=== PATIENT | male | born 1945 | race Caucasian/White ===

== ENCOUNTER 2019-08-16 20:00 | Outpatient (CLI) | payer OTHER, SELFPAY | END 2019-08-16 20:01 | disposition home or self-care (01) | LOC: SLEEP 08-17 08:23 | PROVIDERS: Family Provider Family Medicine; PCP Family Medicine; Visit Provider Family Medicine | DX: G47.30 Sleep apnea, unspecified (principal) | CPT/HCPCS: 95811 ==

== ENCOUNTER 2019-09-07 20:00 | Outpatient (CLI) | payer OTHER, SELFPAY | END 2019-09-07 20:01 | disposition home or self-care (01) | LOC: SLEEP 09-08 09:55 | PROVIDERS: Family Provider Family Medicine; PCP Family Medicine; Visit Provider Family Medicine | DX: G47.30 Sleep apnea, unspecified (principal) | CPT/HCPCS: 95811 ==

== ENCOUNTER 2020-07-06 22:06 | Inpatient (IN) | payer OTHER, MEDICARE, SELFPAY ==
[2020-07-06 22:10] VITALS: BP 146/71; PULSE 105; RESP 24; TEMP 36.7; O2SAT 84; BMI 39.5
--- NOTE | 2020-07-06 22:11 | XRR_ITS ---
PROCEDURE INFORMATION: Exam: XR Chest Exam date and time: 07/06/2020 10:14 PM Age: 75 years old Clinical indication: Shortness of breath; Additional info: SOB TECHNIQUE: Imaging protocol: XR of the chest. Views: 1 view. Total images: 1 COMPARISON: CR Chest 2 views* [id number] 04/08/2018 12:16 PM FINDINGS: Lungs: No visible active interstitial or alveolar airspace disease. Pleural spaces: Unremarkable. No pleural effusion. No pneumothorax. Heart/Mediastinum: Cardiac structures and configuration with arteriosclerosis. Bones/joints: Unremarkable for age. Other findings: Obesity. XR/XR chest 1V portable [id number] IMPRESSION: Nonacute.
--- NOTE | 2020-07-06 22:11 | ECG_ITS ---
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 Measurements Intervals [place] Rate: 91 P: 42 WV: 189 QRS: -64 QRSD: 95 T: 95 QT: 362 QTc: 447 Interpretive Statements SINUS RHYTHM LEFT AXIS DEVIATION [QRS AXIS < -30] LOW QRS VOLTAGE IN EXTREMITY LEADS [QRS DEFLECTION < 0.5 mV IN LIMB LEADS] ANTEROSEPTAL MYOCARDIAL INFARCTION , OF INDETERMINATE AGE [40+ ms Q WAVE IN V1-V4] Compared to ECG 04/08/2018 12:02:14 Low QRS voltage now present Myocardial infarct finding still present Electronically Signed On 07-07-2020 14:47:48 CDT by Loan Hooks M.D. [email or web address]/store/NU/[id number] f
--- NOTE | 2020-07-06 22:57 | ED_ITS ---
HPI - Fall General: Chief Complaint: Fall Stated Complaint: WEAKNESS Time Seen by Provider: 07/06/20 22:07 Source: patient and EMS Mode of arrival: EMS Limitations: no limitations History of Present Illness: HPI Narrative: 75-year-old male presents with EMS after a fall. He fell at home and could not get up. States has been having increasing swelling in his face and legs dyspnea. He is unknown if he has CHF but does state that he has had swelling in his legs over the last week. He does have quite a bit of edema here. Patient is currently 82% on room air and states he does not wear oxygen at home. He is unable to ambulate at this time as own and does live home alone. He denies any chest pain. Denies any fever. Associated symptoms-after fall: Denies abdominal pain, chest pain, headache(s) or neck pain Review of Systems Const: Denies: fever(s), chills, body aches or change in appetite Eyes: Denies: blurry vision or eye discomfort ENMT: Denies: throat pain or dental pain Card: Denies: chest pain Resp: Reports: dyspnea GI: Denies: abdominal pain, nausea, vomiting or diarrhea : Denies: dysuria Musc: Reports: extremity swelling; Denies: neck pain or back pain Skin/Breast: Denies: rash Neuro: Reports: weakness in extremities; Denies: headache(s) Psych: Denies: depression Sha/Lymph: Denies: easy bruising All/Imm: Denies: urticaria PFSH ED PFSH: Medical History (Updated 07/07/20 @ 01:05 by Kb Lopez MD) Asthma Surgical History (Updated 05/13/19 @ 23:54 by Wayne Samano DPM) History of bowel diversion surgery History of cholecystectomy Family History (Updated 05/09/19 @ 15:51 by Iris Knight LPN) Other Cancer Denies family history of Diabetes Social History (Updated 05/09/19 @ 15:51 by Iris Knight LPN) Smoking and tobacco status: former smoker Alcohol intake: current Household members: none Current occupational status: retired Physical Exam Const: COMMON NORMALS: no acute distress and patient oriented x3 GENERAL APPEARANCE: disheveled NUTRITIONAL APPEARANCE: obese HENMT: COMMON NORMALS: normocephalic and atraumatic HEAD & SCALP: normocephalic and atraumatic Eye: COMMON NORMALS: Equal, round and reactive pupils present and EOMs intact bilaterally PUPIL: Yes Equal, round and reactive pupils present Neck/C-Spine: COMMON NORMALS: full ROM and supple Chest: COMMONS NORMALS: normal inspection of the chest and normal palpation of entire chest wall Resp: COMMON NORMALS: normal respiratory effort, No retractions, No use of accessory muscles and clear to auscultation bilaterally AUSCULTATION: clear to auscultation bilaterally Cardio: COMMON NORMALS: regular rate, regular rhythm and No murmurs present (Cardio) RATE: regular rate RHYTHM: regular rhythm GI: COMMON NORMALS: Normal to inspection, nondistended, normoactive bowel sounds present, Soft to palpation, non-tender and no masses PALPATION: Yes Soft to palpation Extremity: COMMON NORMALS: full ROM NARRATIVE EXTREMITY EXAM: 2+ edema Neuro: COMMON NORMALS: patient oriented x3, moves all extremities and no focal motor deficits Psych: COMMON NORMALS: mental status grossly normal, Normal thought process present and cooperative THOUGHT PROCESS: Normal thought process present Skin: COMMON NORMALS: no rashes or lesions noted and no wounds GENERAL SKIN EXAM: no rashes or lesions noted Course Vital Signs: Vital signs: Vital Signs Temperature 98.0 F 07/06/20 22:10 Pulse Rate 95 07/07/20 00:59 Respiratory Rate 18 07/07/20 00:59 Blood Pressure 154/82 07/07/20 00:59 Pulse Oximetry 92 07/07/20 00:59 MDM - Fall MDM Narrative: Medical decision making narrative: Patient presents here with generalized weakness and is having difficulty walking. Patient also has quite a bit of lower extremity edema as well. I gave him IV Lasix here. He is requiring oxygen as well states he wears oxygen as needed at home. I did try to get a CT of his head as he is having some dizziness but he refused. Spoke to hospitalist will admit. Lab Data: Labs: Lab Results 07/06/20 07/06/20 07/06/20 Range/Units 23:40 23:40 23:40 WBC 4.8 (4.0-10.0) 10^3/ uL RBC 4.19 (4.1-5.3) 10^6/u L Hgb 14.6 (11.7-16.6) g/dL Hct 44.8 (42.0-52.0) % MCV 106.9 H (80-94) fL MCH 34.8 H (28.0-34.0) pg MCHC 32.6 (30.0-36.0) g/dL RDW 12.8 (12.1-15.1) % Plt Count 117 L (130-400) 10^3/c mm MPV 8.8 (7.4-10.4) fL Neut % (Auto) 70.5 % Lymph % (Auto) 15.6 % [place] % (Auto) 9.8 % Eos % (Auto) 1.5 % Baso % (Auto) 1.3 % Neut # (Auto) 3.39 (1.8-7.7) 10^3/u L Lymph # (Auto) 0.8 (0.8-4.8) 10^3/u L [place] # (Auto) 0.5 (0.2-0.9) 10^3/u L Eos # (Auto) 0.1 (0.0-0.8) 10^3/u L Baso # (Auto) 0.1 (0.0-0.1) 10^3/u L Nucleated RBC % (a uto) 0.4 % Nucleated RBCs # 0.0 /100WBC PT (12.1-14.9) SECO NDS INR (0.8-1.2) Sodium 143 (136-145) mmol/L Potassium 4.5 (3.5-5.1) mmol/L Chloride 99 (98-107) mmol/L Carbon Dioxide 28 (22-29) mmol/L Anion Gap 20.5 H (5-19) BUN 9 (8-23) mg/dL Creatinine 0.7 (0.7-1.2) mg/dL GFR Calculation Not Reportable Glucose 145 H (65-115) mg/dL Calculated Osmolal ity 297 H (285-295) mOsm/k g Calcium 8.4 L (8.5-10.5) mg/dL Total Bilirubin 0.6 (0.15-1.2) mg/dL AST 39 (0-40) U/L ALT 20 (0-41) U/L Alkaline Phosphata se 58 (40-130) IU/L Troponin T Baselin e 31 H (0-15) ng/L NT-Pro-B Natriuret Pep 84 (0-450) pg/mL Total Protein 6.9 (6.6-8.7) g/dL Albumin 4.5 (3.5-5.2) g/dL Globulin 2.4 (1.3-4.6) g/dL 07/07/20 Range/Units 00:23 WBC (4.0-10.0) 10^3/ uL RBC (4.1-5.3) 10^6/u L Hgb (11.7-16.6) g/dL Hct (42.0-52.0) % MCV (80-94) fL MCH (28.0-34.0) pg MCHC (30.0-36.0) g/dL RDW (12.1-15.1) % Plt Count (130-400) 10^3/c mm MPV (7.4-10.4) fL Neut % (Auto) % Lymph % (Auto) % [place] % (Auto) % Eos % (Auto) % Baso % (Auto) % Neut # (Auto) (1.8-7.7) 10^3/u L Lymph # (Auto) (0.8-4.8) 10^3/u L [place] # (Auto) (0.2-0.9) 10^3/u L Eos # (Auto) (0.0-0.8) 10^3/u L Baso # (Auto) (0.0-0.1) 10^3/u L Nucleated RBC % (a uto) % Nucleated RBCs # /100WBC PT 13.60 (12.1-14.9) SECO NDS INR 1.00 (0.8-1.2) Sodium (136-145) mmol/L Potassium (3.5-5.1) mmol/L Chloride (98-107) mmol/L Carbon Dioxide (22-29) mmol/L Anion Gap (5-19) BUN (8-23) mg/dL Creatinine (0.7-1.2) mg/dL GFR Calculation Glucose (65-115) mg/dL Calculated Osmolal ity (285-295) mOsm/k g Calcium (8.5-10.5) mg/dL Total Bilirubin (0.15-1.2) mg/dL AST (0-40) U/L ALT (0-41) U/L Alkaline Phosphata se (40-130) IU/L Troponin T Baselin e (0-15) ng/L NT-Pro-B Natriuret Pep (0-450) pg/mL Total Protein (6.6-8.7) g/dL Albumin (3.5-5.2) g/dL Globulin (1.3-4.6) g/dL Imaging Data^: CXR: Attestation: I personally reviewed and interpreted this imaging study as follows: Radiologist's impression: [employer] [place] [address] XRay Report Signed Patient: Arabella Lutz Unit #: [id number] : 1945 Age/Sex: 75 / M ADM Date: 07/06/20 Loc: ER Room/Bed: Attending Dr: Ordering Provider/Ordering MD: Kb Lopez MD Date of Service: 07/06/20 Procedure(s): XR chest 1V portable [id number] Accession Number(s): [id number] Report Number: [id number] PROCEDURE INFORMATION: Exam: XR Chest Exam date and time: 07/06/2020 10:14 PM Age: 75 years old Clinical indication: Shortness of breath; Additional info: SOB TECHNIQUE: Imaging protocol: XR of the chest. Views: 1 view. Total images: 1 COMPARISON: CR Chest 2 views* [id number] 04/08/2018 12:16 PM FINDINGS: Lungs: No visible active interstitial or alveolar airspace disease. Pleural spaces: Unremarkable. No pleural effusion. No pneumothorax. Heart/Mediastinum: Cardiac structures and configuration with arteriosclerosis. Bones/joints: Unremarkable for age. Other findings: Obesity. XR/XR chest 1V portable [id number] IMPRESSION: Nonacute. EKG Data^: EKG 1: Attestation: I personally reviewed and interpreted this EKG as follows: EKG interpretation date: 07/06/20 EKG interpretation time: 22:49 Interpretation: nsr hr [address] or t wave abnormlaities qrs 95 qtc 411 Discharge Plan Discharge Patient Disposition: Admitted As Inpatient Clinical Impression: Weakness, Bilateral edema of lower extremity Condition: Stable Coding Level of Care Code ED Dispatch Machine Runner for Chg Fwd Exam Comprehensive
--- NOTE | 2020-07-06 23:02 | PC.NURSE ---
patient report received from Agatha RIVER and care transferred to ALETA Blevins
[2020-07-06 23:08] VITALS: BP 153/81; PULSE 95; RESP 20; O2SAT 93
[2020-07-06] MEDS: FUROsemide 10 mg/mL SDV 10mL 60 MG IVP (23:28)
[2020-07-06 23:31] VITALS: BP 153/81; PULSE 99; RESP 16; O2SAT 92
[2020-07-06 23:45] LABS: Basophils # 0.1 10^3/uL (0.0-0.1); Basophils % 1.3 %; Eosinophils # 0.1 10^3/uL (0.0-0.8); Eosinophils % 1.5 %; Hematocrit 44.8 % (42.0-52.0); Hemoglobin 14.6 g/dL (11.7-16.6); Lymphocytes # 0.8 10^3/uL (0.8-4.8); Lymphocytes % 15.6 %; Mean Corpuscular HGB Conc 32.6 g/dL (30.0-36.0); Mean Corpuscular Hemoglobin 34.8 pg (28.0-34.0); Mean Corpuscular Volume 106.9 fL (80-94); Mean Platelet Volume 8.8 fL (7.4-10.4); Monocytes # 0.5 10^3/uL (0.2-0.9); Monocytes % 9.8 %; Neutrophils # 3.39 10^3/uL (1.8-7.7); Neutrophils % 70.5 %; Nucleated Red Blood Cells % 0.4 %; Platelet Count 117 10^3/cmm (130-400); Red Blood Count 4.19 10^6/uL (4.1-5.3); Red Cell Distribution Width 12.8 % (12.1-15.1); White Blood Count 4.8 10^3/uL (4.0-10.0)
[2020-07-07] VITALS (16 sets, daily range): BP systolic 131–165; BP diastolic 58–94; PULSE 90–117; RESP 17–22; TEMP 36.8–38; O2SAT 90–93
[2020-07-07 00:03] LABS: Troponin(5th) Baseline 31 ng/L (0-15)
[2020-07-07 00:11] LABS: Alanine Aminotransferase 20 U/L (0-41); Albumin Level 4.5 g/dL (3.5-5.2); Alkaline Phosphatase 58 IU/L (40-130); Anion Gap 20.5 (5-19); Aspartate Amino Transferase 39 U/L (0-40); Blood Urea Nitrogen 9 mg/dL (8-23); Calcium 8.4 mg/dL (8.5-10.5); Carbon Dioxide 28 mmol/L (22-29); Chloride 99 mmol/L (98-107); Globulin 2.4 g/dL (1.3-4.6); Glucose 145 mg/dL (65-115); NT Pro B Type Natriuretic Pept 84 pg/mL (0-450); Osmolality Calculated 297 mOsm/kg (285-295); Potassium 4.5 mmol/L (3.5-5.1); Sodium 143 mmol/L (136-145); Total Bilirubin 0.6 mg/dL (0.15-1.2); Total Protein 6.9 g/dL (6.6-8.7)
[2020-07-07 02:24] LABS: D Dimer 2.74 ug/mIFEU (0-0.59)
--- NOTE | 2020-07-07 02:35 | PM.HP ---
Providers/Chief Complaint Admitting Physician: Pedro Gudino MD Primary Care Provider: Georgi Shah Chief Complaint: WEAKNESS History of Present Illness Arabella Lutz is a 75 year old male with history of COPD , sleep apnea presents to ER with complaints of increased weakness and leg swelling. He reports that he does not follow a diet. In the ER he was noted to be hypoxic. CXR did not show much fluid. He was given lasix. He states that he is not very mobile. He had an elevated D dimer. CT chest ordered Review of Systems General: Reports: 10 or more systems reviewed and unremarkable except in HPI and below Const: Denies: fever(s) or chills Eyes: Denies: change in vision ENMT: Denies: throat pain Card: Denies: chest pain or palpitations Resp: Reports: dyspnea GI: Denies: abdominal pain or nausea Musc: Reports: extremity swelling Skin/Breast: Denies: rash or pruritus Medications/Allergies Home Medications Medication Instructions Recorded Confirmed Last Taken Type amlodipine 10 mg tablet 10 mg PO DAILY 05/09/19 05/09/19 Unknown History dorzolamide-timolol (PF) 2 %-0.5 % 1 drop OPHTHALMIC (EYE) BID 05/09/19 05/09/19 Unknown History eye drops in a dropperette ipratropium 18 mcg-albuterol 103 spray INHALATION 05/09/19 05/09/19 Unknown History mcg/actuation aerosol inhaler levofloxacin 750 mg tablet 750 mg PO DAILY 05/09/19 05/09/19 Unknown History lisinopril 40 mg tablet 40 mg PO DAILY 05/09/19 05/09/19 Unknown History meloxicam 7.5 mg tablet 7.5 mg PO DAILY 05/09/19 05/09/19 Unknown History omeprazole magnesium 20 mg 20 mg PO DAILY 05/09/19 05/09/19 Unknown History tablet,delayed release Allergies Allergy/AdvReac Type Severity Reaction Status Date / Time No Known Allergies Allergy Verified 05/09/19 15:49 PFSH Acute PFSH: Medical History (Updated 07/07/20 @ 02:39 by Pedro Gudino MD) Asthma Surgical History (Updated 05/13/19 @ 23:54 by Wayne Samano DPM) History of bowel diversion surgery History of cholecystectomy Family History (Updated 05/09/19 @ 15:51 by Iris Knight LPN) Other Cancer Denies family history of Diabetes Social History (Updated 05/09/19 @ 15:51 by Iris Knight LPN) Smoking and tobacco status: former smoker Alcohol intake: current Household members: none Current occupational status: retired Vitals/I&O/Wt Last Vital Signs Temp 98.7 F 07/07/20 01:39 Pulse 101 H 07/07/20 01:39 Resp 22 H 07/07/20 01:39 BP 165/94 07/07/20 01:39 Pulse Ox 92 07/07/20 01:39 Weight last 48 hrs Weight 260 lb Physical Exam Const: COMMON NORMALS: no acute distress Resp: OTHER: wheeze Cardio: COMMON NORMALS: regular rate and regular rhythm Extremity: OTHER: +4 swelling Neuro: COMMON NORMALS: patient oriented x3 and CN's II-XII intact bilaterally Data : 07/06/20 23:40 07/06/20 23:40 Other data: cxr -clear A&P Assessment and plan (1) Bilateral edema of lower extremity: check ECHO IV lasix given in ER, resume dose in AM may benefit from lymphedema clinic diet reviewed Status: Acute (2) Weakness: PT Status: Acute (3) Sleep apnea: requested family to bring CPAP from home Status: Acute (4) D-dimer, elevated: ct chest PE ordered Status: Acute (5) COPD (chronic obstructive pulmonary disease): O2, duonebs Status: Acute Attestations Medical Necessity Statement*: Arabella Lutz's hospital stay will require greater than 2 midnights for weakness Coding Level of Care Code Acute Quarry Equipment Operator for g Fwd Diagnoses Bilateral edema of lower extremity R60.0 Weakness R53.1 Sleep apnea G47.30 D-dimer, elevated R79.89 COPD (chronic obstructive pulmonary disease) J44.9
[2020-07-07] MEDS: enoxaparin 30 mg/0.3 mL Syringe SUBCUT (02:59)
[2020-07-07 03:06] LABS: Troponin 5 2HR 35.31 ng/L (0-15); Troponin 5 2HR Delta 4.31 ABS# (0-10)
[2020-07-07] MEDS: ipratropium-albuterol 3 mL Neb INHALATION ×3 (04:11→19:54)
--- NOTE | 2020-07-07 04:11 | ECG_ITS ---
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 Measurements Intervals [place] Rate: 94 P: 44 DC: 188 QRS: -85 QRSD: 90 T: 31 QT: 359 QTc: 451 Interpretive Statements SINUS RHYTHM LEFT ANTERIOR FASCICULAR BLOCK [QRS AXIS <= -45, QR IN I, RS IN II] POSSIBLE ANTERIOR MYOCARDIAL INFARCTION [30 ms Q WAVE IN V3/V4, OR R < 0.2 mV IN V4], OF INDETERMINATE AGE Compared to ECG 07/06/2020 22:49:01 Left anterior fascicular block now present Left-axis deviation no longer present Myocardial infarct finding still present Electronically Signed On 07-11-2020 7:11:04 CDT by Liliana Tang M.D. [id number]
[2020-07-07 06:24] LABS: Troponin 5 6HR 32.08 ng/L (0-15); Troponin 5 6HR Delta 1.08 ng/L (0-12)
[2020-07-07] MEDS: amlodipine 10 mg Tablet PO (09:13)
[2020-07-07] MEDS: lisinopril 20 mg Tablet 40 MG PO (09:13)
--- NOTE | 2020-07-07 15:00 | USR_ITS ---
PROCEDURE INFORMATION: Exam: US Duplex Lower Extremity Veins, Bilateral Exam date and time: 07/07/2020 3:59 PM Age: 75 years old Clinical indication: Edema, localized; Lower extremity, bilateral; Additional info: Bilateral lower extremity edema TECHNIQUE: Imaging protocol: Real-time duplex ultrasound of the extremities with 2-D marshall scale, color Doppler flow and spectral waveform analysis with image documentation. Complete exam focused on the bilateral lower extremity veins. COMPARISON: No relevant prior studies available. FINDINGS: Right deep veins: Unremarkable. The common femoral, femoral, proximal profunda femoral and popliteal veins are patent without thrombus. Normal Doppler waveforms. Normal compressibility and/or augmentation response. Right superficial veins: Saphenofemoral junction is patent without thrombus. Left deep veins: Unremarkable. The common femoral, femoral, proximal profunda femoral and popliteal veins are patent without thrombus. Normal Doppler waveforms. Normal compressibility and/or augmentation response. Left superficial veins: Saphenofemoral junction is patent without thrombus. Soft tissues: There is diffuse edema in the calfs on both sides. US/CV venous duplex [facility] [id number] IMPRESSION: No evidence of deep vein thrombosis.
--- NOTE | 2020-07-07 15:02 | P.PN_ITS ---
Subjective Subjective: Interval history: Patient not feeling well. He has increased tremor from baseline. History available in the chart was reviewed and as well as discussed with patient. He has a longstanding history of daily drinking, more than 1/5 a day. He always has some degree of a tremor. He has been having increasing spells where his balance is off. It is worse in the morning and gets better in the afternoons. He typically has to sit on the side of the bed for an hour or 2 before he can get up because of the balance being off. He does use AVAPS at home for sleep apnea. He is chronically on oxygen. His legs have always been swelling to some degree but they are significantly more swollen currently. His abdominal girth is also increased according to his daughter. He also has a longstanding history of back pain that has limited his mobility. He is unable to lie flat and spends most of his time sitting up in a chair. He keeps his legs hanging down all of the time. If he tries to elevate his legs his back hurts. Daughter stated that the back injury is more than 40 years old. He had a fall in his bathroom leading to this ER visit. The bathroom was quite cramped and he could have hit anything. Unclear if he had any reinjury to it. Both he and the daughter indicate that he always has severe pain. No complaints of bowel or bladder incontinence acutely. He does intermittently have issues at home. He is able to move both of his legs. He denies any new numbness in his legs. If he tries to bear weight on his legs they are too weak to hold him. He is unable to tolerate CT imaging because of the severity of back pain. Evidently they tried to move him over but it hurt too much and he declined further attempts. He states his back is always this bad when asked again. Vitals/I&O/Wt Last Vital Signs Temp 100.3 F H 07/07/20 11:42 Pulse 101 H 07/07/20 11:42 Resp 20 H 07/07/20 11:42 BP 139/58 07/07/20 11:42 Pulse Ox 91 07/07/20 11:42 07/07/20 07/07/20 07/07/20 06:59 14:59 22:59 Output Total 1050 / 1050 1150 / 1150 Balance -1050 / -1050 -1150 / -1150 Weight last 48 hrs Weight 117.934 kg Physical Exam Narrative: EXAM NARRATIVE: Constitutional: [place] facies, erythematous face, tremulous but cooperative HEENT: Right-sided facial droop noted, Respiratory: Scattered wheezes, tachypnea, pursed lip breathing at times Cardiovascular: Distant heart sounds Abdomen: Soft, obese, rotund, nontender Extremities: 4+ edema but it is a doughy type of edema, no acutely palpable areas of tenderness along the spine Neuro: Right-sided facial droop, speech clear, resting and intention tremors noted, foot pumps are equal bilaterally. Sensation is intact lower extremities bilaterally. Other: Skin is dry. There are some patchy circular areas of erythema. He has scattered bruises. Bruise over his hip is not tender to palpation. Data : 07/06/20 23:40 07/07/20 16:45 A&P Assessment and plan (1) Fall at home: Status: Acute (2) Back pain: Status: Acute (3) Weakness: Status: Acute (4) Bilateral edema of lower extremity: Status: Acute (5) D-dimer, elevated: Status: Acute (6) COPD (chronic obstructive pulmonary disease): Status: Acute (7) Sleep apnea: Status: Acute (8) Daily consumption of alcohol: Status: Acute (9) BMI 39.0-39.9,adult: Status: Chronic Additional A&P Information Elevated blood sugar without a history of diabetes Obesity with a BMI of 39 Significant macrocytosis Thrombocytopenia Check CK level We will give an additional dose of Lasix Harris catheter for close monitoring of urine output particularly given that he cannot stand up to urinate currently Follow-up pending echocardiogram Need to see if we can get back pain under better control. Meloxicam which she takes at home is not ideal under the current clinical setting. I have ordered hydrocodone and morphine currently along with some Flexeril. Ativan via [facility] protocol Multivitamin, folate, thiamine, oral magnesium Check magnesium level PPI Daughter will call with home medication list which I will address in time when available Doppler ultrasound of the lower extremities if we are able to get him in a position to do them I would ideally like to get a image of his lower back but right now that is out of the question according to him. Will reevaluate tomorrow and see if he is feeling any better though by his report he has not been able to lie on his back very well for some time. If continues to be unable to tolerate consideration for advanced diagnostic imaging will at least get plain films of the lumbar spine. PT evaluation has been ordered Has an elevated D-dimer but unable to lie for CTA of the chest. ABG Check A1c, TSH, lipid panel, uric acid Recheck electrolytes in the morning Respiratory to set up AVAPS during sleep Continue home oxygen Breathing treatments Lovenox for DVT prophylaxis, though need to watch for further drop in platelet count Close monitoring for acute clinical decline at which he is high risk Supportive care otherwise Discussed with patient as well as with his daughter. Both were given an opportunity to ask questions Full code Attestations Medical Necessity Statement*: Requires ongoing inpatient stay for issues described above. Plans are as indicated. Coding Level of Care Code Acute Developmental Education Instructor for Chg Fwd Diagnoses Fall at home W19.XXXA; Y92.009 Back pain M54.9 Weakness R53.1 Bilateral edema of lower extremity R60.0 D-dimer, elevated R79.89 COPD (chronic obstructive pulmonary disease) J44.9 Sleep apnea G47.30 Daily consumption of alcohol Z78.9 BMI 39.0-39.9,adult Z68.39
[2020-07-07 17:22] LABS: Glucose Point of Care 137 mg/dL (70-110)
[2020-07-07 17:25] LABS: Procalcitonin 0.21 ng/mL (0-0.5)
[2020-07-07 17:35] LABS: Erythrocyte Sedimentation Rate 22 mm/hr (0-10)
[2020-07-07 17:36] LABS: Anion Gap 14.7 (5-19); Blood Urea Nitrogen 11 mg/dL (8-23); Calcium 8.5 mg/dL (8.5-10.5); Carbon Dioxide 32 mmol/L (22-29); Chloride 98 mmol/L (98-107); Glucose 138 mg/dL (65-115); Magnesium 1.5 mg/dL (1.7-2.3); Osmolality Calculated 294 mOsm/kg (285-295); Potassium 3.7 mmol/L (3.5-5.1); Sodium 141 mmol/L (136-145)
[2020-07-07 17:39] LABS: Creatine Phosphokinase 701 U/L (39-308)
[2020-07-07] MEDS: FUROsemide 10 mg/mL SDV 4mL 40 MG IVP (18:03)
[2020-07-07] MEDS: docusate sodium 100 mg Capsule PO (18:09)
[2020-07-07] MEDS: pantoprazole 40 mg SDV IVP (18:09)
[2020-07-07 18:34] LABS: Add Urine Microscopic? NO; Charge for UA Resulting for Rev
[2020-07-07 18:48] LABS: Bilirubin Urine Neg (Negative); Blood Urine Neg (Negative); Glucose Urine UA Norm (Normal); Ketones Urine 1+ (Negative); Leukocyte Esterase Urine Negative (Negative); Nitrate Urine Negative (Negative); Protein Urine Neg (Negative); Sulfosalicylic Acid Urine Negative (Negative); Urine Appearance Clear (CLEAR); Urine Color Yellow (Yellow); Urobilinogen Urine 4 mg/dL (Negative); pH Urine 9 (5-7)
[2020-07-07 20:17] LABS: Glucose Point of Care 181 mg/dL (70-110)
[2020-07-07] MEDS: magnesium sulfate premix 2 GM/50 ML PIGGYBACK IV (20:35)
[2020-07-08] VITALS (20 sets, daily range): BP systolic 124–158; BP diastolic 69–80; PULSE 74–112; RESP 10–20; TEMP 36.7–37.7; O2SAT 92–96
[2020-07-08] MEDS: FUROsemide 10 mg/mL SDV 4mL 40 MG IVP (03:30)
[2020-07-08] MEDS: enoxaparin 40 mg/0.4 mL Syringe SUBCUT (03:30)
[2020-07-08] MEDS: ipratropium-albuterol 3 mL Neb INHALATION ×5 (03:43→20:24)
[2020-07-08 06:30] LABS: Basophils % 0.5 %; Eosinophils % 0.1 %; Hematocrit 44.1 % (42.0-52.0); Hemoglobin 14.2 g/dL (11.7-16.6); Lymphocytes # 0.8 10^3/uL (0.8-4.8); Lymphocytes % 9.8 %; Mean Corpuscular HGB Conc 32.2 g/dL (30.0-36.0); Mean Corpuscular Hemoglobin 34.5 pg (28.0-34.0); Mean Platelet Volume 8.8 fL (7.4-10.4); Monocytes % 13.2 %; Neutrophils # 5.88 10^3/uL (1.8-7.7); Neutrophils % 75.9 %; Nucleated Red Blood Cells % 0 %; Platelet Count 113 10^3/cmm (130-400); Red Blood Count 4.12 10^6/uL (4.1-5.3); Red Cell Distribution Width 12.8 % (12.1-15.1); White Blood Count 7.8 10^3/uL (4.0-10.0)
[2020-07-08 06:47] LABS: Estmated Average Glucose 114; Hemoglobin A1C 5.6 % (4.0-6.0)
[2020-07-08 06:50] LABS: Glucose Point of Care 141 mg/dL (70-110)
[2020-07-08 07:02] LABS: Alanine Aminotransferase 18 U/L (0-41); Albumin Level 3.9 g/dL (3.5-5.2); Alkaline Phosphatase 46 IU/L (40-130); Anion Gap 15.3 (5-19); Aspartate Amino Transferase 40 U/L (0-40); Blood Urea Nitrogen 10 mg/dL (8-23); Calcium 8.7 mg/dL (8.5-10.5); Carbon Dioxide 33 mmol/L (22-29); Chloride 95 mmol/L (98-107); Cholesterol 175 mg/dL (0-200); Globulin 3.2 g/dL (1.3-4.6); Glucose 137 mg/dL (65-115); HDL Cholesterol 97 mg/dL (60-100); LDL Cholesterol Calculated 55 mg/dL (50-129); LDL HDL Ratio 0.57 RATIO (0.00-3.22); Magnesium 1.8 mg/dL (1.7-2.3); Osmolality Calculated 291 mOsm/kg (285-295); Phosphorus 2.5 mg/dL (2.5-4.5); Potassium 3.3 mmol/L (3.5-5.1); Sodium 140 mmol/L (136-145); Thyroid Stimulating Hormone 2.22 uIU/mL (0.27-4.20); Total Bilirubin 1.8 mg/dL (0.15-1.2); Total Protein 7.1 g/dL (6.6-8.7); Triglycerides 116 mg/dL (0-150); Uric Acid 7.4 mg/dL (3.4-7.0)
[2020-07-08 07:35] LABS: Creatine Phosphokinase 936 U/L (39-308)
--- NOTE | 2020-07-08 07:41 | PC.NURSE ---
notified Dr Layton that patient's CK is 936.
[2020-07-08 08:17] LABS: CKMB 3.6 ng/mL (0-10.4)
[2020-07-08] MEDS: lisinopril 20 mg Tablet 40 MG PO (08:38)
[2020-07-08] MEDS: cyclobenzaprine 10 mg Tablet 5 MG PO (08:38)
[2020-07-08] MEDS: thiamine 100 mg Tablet PO (08:38)
[2020-07-08] MEDS: cetirizine 10 mg Tablet PO (08:38)
[2020-07-08] MEDS: potassium chloride ER 20 mEq Tablet PO (08:38)
[2020-07-08] MEDS: pantoprazole DR 40 mg Tablet PO (08:38)
[2020-07-08] MEDS: docusate sodium 100 mg Capsule PO ×2 (08:38→17:03)
[2020-07-08] MEDS: multivitamin therapeutic Tablet 1 TAB PO (08:38)
[2020-07-08] MEDS: amlodipine 10 mg Tablet PO (08:38)
[2020-07-08] MEDS: folic acid 1 mg Tablet PO (08:38)
--- NOTE | 2020-07-08 08:51 | PC.NURSE ---
notified Dr Layton that patient has hematuria
--- NOTE | 2020-07-08 09:38 | PC.NURSE ---
patient refuses CT again today stating I can not lay flat for it.
[2020-07-08 11:24] LABS: Glucose Point of Care 100 mg/dL (70-110)
--- NOTE | 2020-07-08 14:41 | PC.NURSE ---
Telemetry ordered by ER doctor not hospitalist. Removed intervention for cardiac monitoring. Will check with hospitalist to see if Telemetry needs ordered.
[2020-07-08 15:15] LABS: Creatine Phosphokinase 1047 U/L (39-308)
--- NOTE | 2020-07-08 15:40 | PC.NURSE ---
Telemetry order placed and telemetry put on patient. current heart rate is 103.
--- NOTE | 2020-07-08 16:09 | P.PN_ITS ---
Subjective Subjective: Interval history: Patient feels better. He was able to get up for a short period of time with PT. Again talked to him about imaging studies. He says he would require being sedated to consider this. He again iterates that he always has difficulty getting up and he does okay as long as he does not fall down. Continues to deny any loss of bowel function. Denies numbness to the lower extremities. He denies hallucinations but his daughter reports that he was seeing or talking about things that were on the other side of the room rather than where he was pointing or indicating. Janet says that he is not anywhere close to his baseline mentation right now. Some of the things he is talking about regarding family members is completely wrong and at times he has asked whomever was in the room to take him to the hospital even though he is here. Vitals/I&O/Wt Last Vital Signs Temp 98.4 F 07/08/20 12:00 Pulse 109 H 07/08/20 15:34 Resp 20 H 07/08/20 15:24 BP 134/80 07/08/20 12:00 Pulse Ox 92 07/08/20 15:24 07/08/20 07/08/20 07/08/20 06:59 14:59 22:59 Intake Total 240 / 240 Output Total 825 / 3675 Balance -825 / -3385 240 / 240 Weight last 48 hrs Weight 120.383 kg Weight 117.934 kg Physical Exam Narrative: EXAM NARRATIVE: Constitutional: Improved overall coloration, alert, appears oriented to person and place and situation during my evaluation though occasionally will reach out to his right side to either put something down or pick something up. He has a table to his right at home HEENT: Right-sided facial droop unchanged, bulbous nose Respiratory: Tachypnea, pursed lip breathing, no wheezes currently, wearing oxygen Cardiovascular: Distant heart sounds Abdomen: Soft, obese, nontender Extremities: Edema today seems to be more localized below the knee. Palpation of his back today yields a tender spot around T6 not noted yesterday, reproducible on repeated exam. Neuro: Speech clear, resting and intention tremors remain, moves all extremities, sensation is equal at both hands and both feet to light touch Other: Skin is dry. No new rashes. Has chronic changes. Urinary Catheter Management^: Harris: Cath Placed During This Visit: yes Reason for Continuing Indwelling Catheter: Acute Urinary Retention or Obstruction Urinary Catheter Date of Insertion: 07/07/20 Urinary Catheter Time of Insertion: 16:35 Data : 07/08/20 06:21 07/08/20 06:21 Other Labs: Laboratory Tests 07/06/20 07/07/20 07/08/20 23:40 16:45 06:21 Hemoglobin A1c 5.6 Uric Acid 7.4 H Phosphorus 2.5 Magnesium 1.8 Total Bilirubin 1.8 H AST 40 ALT 18 Alkaline Phosphatase 46 Creatine Kinase 936 H* C-Reactive Protein 38.0 H NT-Pro-B Natriuret Pep 84 Albumin 3.9 Cholesterol 175 LDL Cholesterol, Calc 55 HDL Cholesterol 97 Procalcitonin 0.21 TSH 2.22 Micro: Microbiology 07/07/20 16:51 Blood Culture - Preliminary Blood SPECIMEN COLLECTED 07/07/20 16:45 Blood Culture - Preliminary Blood SPECIMEN COLLECTED A&P Assessment and plan (1) Fall at home: Status: Acute (2) Back pain: Has chronic lower back pain that is severe and limits his activities of daily living. Appears to have an acute component after fall with tenderness to palpation around T6. Status: Acute (3) Weakness: Status: Acute (4) Rhabdomyolysis: Either from fall or from tremors, currently with stable renal function Status: Acute (5) Altered mental status: According to the daughter, patient's mental status is not baseline. This could be from alcohol withdrawal, hypoxemia or hypercapnia since he did not have his AVAPS last evening, UTI although urinalysis is not suggestive of this. He has longstanding alcohol use slight risk for not only withdrawal symptoms but development of Wernicke Korsakoff syndrome. That could be affecting his gait or balance as his daughter describes it as well as his mentation. Status: Acute (6) Bilateral edema of lower extremity: In large part due to venous stasis as he almost never elevates his legs Status: Acute (7) D-dimer, elevated: Has risk factors for PE, chronically on oxygen. Has declined consideration for CTA of the chest unless he can be completely sedated due to back pain. Status: Acute (8) COPD (chronic obstructive pulmonary disease): Chronically on oxygen at 4 to 5 L Status: Acute (9) Sleep apnea: Uses AVAPS at night Status: Acute (10) Daily consumption of alcohol: Around the fifth of alcohol Status: Acute (11) BMI 39.0-39.9,adult: Status: Chronic Additional A&P Information Elevated blood sugar without a history of diabetes, hemoglobin A1c 5.6 Obesity with a BMI of 39 Significant macrocytosis, attributed to chronic alcohol use Thrombocytopenia, likely related to chronic alcohol use, thus far stable on Lovenox Hematuria, felt secondary to Harris trauma but will need to monitor while on diuresis Hyperuricemia Sinus tachycardia which I suspect is his baseline due to his chronic respiratory status Hold Lasix IV fluids at a lower rate Recheck CK level in the morning Continue Harris catheter for close monitoring of urine output Monitor for increasing hematuria given use of prophylactic Lovenox Add allopurinol Plain films of thoracic spine Continue pain medications which currently include hydrocodone, morphine > has not taken either On home meloxicam Discontinue Flexeril in case this is what caused his mental status changes his daughter saw May have to consider CT with conscious sedation to include spine, CTA and CT of the head depending on clinical course. Check ammonia level Ativan via CIWA protocol at a lower than usual dose secondary to chronic hypercapnia Multivitamin, folate, thiamine, oral magnesium Echocardiogram ordered but has not yet been able to be completed CTA of the chest is ordered but has not yet been completed CT of the head has been ordered but not yet completed Venous Doppler of the lower extremities has been ordered but not yet completed Would ideally like to get advanced diagnostic imaging of the spine but patient cannot currently tolerate PT evaluation appreciated AVAPS during sleep Continue home oxygen Breathing treatments PPI Lovenox for DVT prophylaxis Close monitoring for acute clinical decline for which he is high risk Request records from [facility] Supportive care otherwise Discussed with patient as well as with his daughter. Both were given an opportunity to ask questions After much discussion, patient will consider short-term placement for rehabilitation but is not willing to look into long-term placement as he wants to go back home Full code Attestations Medical Necessity Statement*: Requires ongoing inpatient stay for management as described including IV fluids, physical therapy, close monitoring for clinical decline. Coding Level of Care Code Acute Material Handler 1St Shift for Chg Fwd Diagnoses Fall at home W19.XXXA; Y92.009 Back pain M54.9 Weakness R53.1 Rhabdomyolysis M62.82 Altered mental status R41.82 Bilateral edema of lower extremity R60.0 D-dimer, elevated R79.89 COPD (chronic obstructive pulmonary disease) J44.9 Sleep apnea G47.30 Daily consumption of alcohol Z78.9 BMI 39.0-39.9,adult Z68.39
[2020-07-08 16:44] LABS: Glucose Point of Care 155 mg/dL (70-110)
[2020-07-08] MEDS: trazodone 50 mg Tablet PO (17:03)
[2020-07-08 18:14] LABS: ABG PCO2 46.1 mmHg (35-45); ABG PH Result 7.49 (7.35-7.45); Arterial Blood Gas Hematocrit 41.8 % (42-52); Base Excess ABG 10.4 mmol/L (-2.0-2.0); Blood Gas Allen Test Pos; Blood Gas Operator Identificat ED; Blood Gas Sample Site Radial, left; Blood Gas Sample Type Arterial; HCO3 ABG 35.2 mmol/L (22-26); Oxygen Device NC; PO2 ABG 58.3 mmHg (80.0-100.0)
[2020-07-08 20:37] LABS: Glucose Point of Care 109 mg/dL (70-110)
[2020-07-09] VITALS (78 sets, daily range): BP systolic 122–141; BP diastolic 76–107; PULSE 78–124; RESP 7–25; TEMP 36.7–37.4; O2SAT 85–95
[2020-07-09] MEDS: sodium chlor 0.9% + KCl 20 mEq 20 MEQ/1,000 ML BAG 75 MEQ IV (01:27)
--- NOTE | 2020-07-09 01:39 | USCV_ITS ---
Arabella Lutz Age: 75 Gender: M : 1945 Exam Date: 07/09/2020 14:43 Ordering Phys: Pedro Gudino MD Technologist: Mitchell Delgado Exam Location: [facility] – [place] Indication: CHF BP: 132 / 82 HR: 95 Rhythm: Sinus Technical Quality: Technically difficult study MEASUREMENTS (Male / Female) Normal Values 2D ECHO LV Diastolic Diameter PLAX 3.0 cm 4.2 - 5.9 / 3.9 - 5.3 cm LV Systolic Diameter PLAX 2.2 cm IVS Diastolic Thickness 1.4 cm 0.6 - 1.0 / 0.6 - 0.9 cm IVS Systolic Thickness 1.7 cm LVPW Diastolic Thickness 1.3 cm 0.6 - 1.0 / 0.6 - 0.9 cm LVPW Systolic Thickness 1.6 cm LVOT Diameter 2.0 cm LV Ejection Fraction 2D Teich 44.8 % LV Ejection Fraction MOD 2C 60.0 % LV Ejection Fraction 2C AL 59.7 % LA Diameter 4.0 cm Aorta at Sinotubular Diameter 2.1 cm M-MODE Aortic Annulus Diameter 3.6 cm LA Ao Ratio MM 1.2 DOPPLER AV Peak Velocity 113.0 cm/s LVOT Peak Velocity 102.0 cm/s AV Area Cont Eq vti 3.3 cm squared AV Area Cont Eq pk 3.0 cm squared MV Area PHT 5.0 cm squared Mitral E to A Ratio 0.9 MV E' Velocity 64.0 cm/s Mitral E to MV E' Ratio 12.2 Mitral E to LV E' Lateral Ratio 9.6 Mitral E to LV E' Septal Ratio 16.9 TR Peak Velocity 131.0 cm/s TR Peak Gradient 6.9 mmHg TV Peak E Velocity 89.0 cm/s Right Atrial Pressure 3.0 mmHg Pulmonary Artery Systolic Pressu 9.9 mmHg PV Peak Velocity 151.0 cm/s FINDINGS Left Ventricle Normal left ventricular cavity size. Normal left ventricular systolic function. Left ventricular ejection fraction is estimated at 60%. No diagnostic regional wall motion abnormality. Abnormal septal motion. Right Ventricle Normal right ventricular size and systolic function. Right ventricular systolic pressure 9.9 mmHg. Right Atrium Normal right atrial size. Left Atrium Probably normal left atrial size. Mitral Valve Thickened mitral valve. No mitral valve stenosis. Trace mitral valve regurgitation. Aortic Valve Aortic valve not well visualized. No aortic valve stenosis. No aortic valve regurgitation. Tricuspid Valve Tricuspid valve not well visualized. Pulmonic Valve Pulmonic valve not well visualized. No pulmonary valve stenosis. Pericardium No pericardial effusion. Aorta Normal sized aortic root. CONCLUSIONS 1. This is a technically difficult study. Optison was used per protocol. 2. Normal left ventricular cavity size. Normal left ventricular systolic function. Left ventricular ejection fraction is estimated at 60 %. No diagnostic regional wall motion abnormality. Abnormal septal motion. 3. No significant valvular abnormality. 4. No prior similar studies to compare. Liliana Tang MD (Electronically Signed) Final Date: 09 Jul 2020 21:56 S
[2020-07-09] MEDS: enoxaparin 40 mg/0.4 mL Syringe SUBCUT (02:30)
[2020-07-09] MEDS: HYDROcodone-acetaminophen 5-325 mg Tablet 1 TAB PO ×2 (02:30→08:29)
[2020-07-09] MEDS: LORazepam 2 mg/mL INJ 1 mL 1 MG IVP ×3 (02:34→08:30)
[2020-07-09 04:43] LABS: Basophils % 0.4 %; Eosinophils % 0.6 %; Hematocrit 42.9 % (42.0-52.0); Hemoglobin 13.5 g/dL (11.7-16.6); Lymphocytes # 0.8 10^3/uL (0.8-4.8); Lymphocytes % 11.7 %; Mean Corpuscular HGB Conc 31.5 g/dL (30.0-36.0); Mean Corpuscular Hemoglobin 34.5 pg (28.0-34.0); Mean Corpuscular Volume 109.7 fL (80-94); Mean Platelet Volume 9.2 fL (7.4-10.4); Monocytes # 0.9 10^3/uL (0.2-0.9); Monocytes % 12.1 %; Neutrophils # 5.33 10^3/uL (1.8-7.7); Neutrophils % 74.8 %; Nucleated Red Blood Cells % 0 %; Platelet Count 113 10^3/cmm (130-400); Red Blood Count 3.91 10^6/uL (4.1-5.3); Red Cell Distribution Width 12.8 % (12.1-15.1); White Blood Count 7.1 10^3/uL (4.0-10.0)
[2020-07-09 05:04] LABS: Albumin Level 3.6 g/dL (3.5-5.2); Alkaline Phosphatase 39 IU/L (40-130); Blood Urea Nitrogen 17 mg/dL (8-23); Calcium 8.4 mg/dL (8.5-10.5); Carbon Dioxide 30 mmol/L (22-29); Chloride 98 mmol/L (98-107); Globulin 2.9 g/dL (1.3-4.6); Glucose 116 mg/dL (65-115); Magnesium 1.7 mg/dL (1.7-2.3); Osmolality Calculated 293 mOsm/kg (285-295); Phosphorus 2.5 mg/dL (2.5-4.5); Sodium 140 mmol/L (136-145); Total Bilirubin 1.4 mg/dL (0.15-1.2); Total Protein 6.5 g/dL (6.6-8.7)
[2020-07-09 05:12] LABS: Anion Gap 15.6 (5-19); Aspartate Amino Transferase 40 U/L (0-40); Potassium 3.6 mmol/L (3.5-5.1)
[2020-07-09 05:13] LABS: Alanine Aminotransferase 16 U/L (0-41); Creatine Phosphokinase 867 U/L (39-308)
[2020-07-09] MEDS: morphine 4 mg/mL SDV 1 mL IVP (05:15)
[2020-07-09 05:26] LABS: Folate Level 6.7 ng/mL (4.5-32.2)
[2020-07-09 05:59] LABS: CKMB 2.8 ng/mL (0-10.4); Vitamin B12 310 pg/mL (232-1245)
--- NOTE | 2020-07-09 06:00 | XRR_ITS ---
PROCEDURE INFORMATION: Exam: XR Thoracic Spine Exam date and time: 07/09/2020 6:09 AM Age: 75 years old Clinical indication: Injury or trauma; Other: Back tenderness; Blunt trauma (contusions or hematomas); Injury details: Multiple falls recently; Prior surgery; Additional info: Tender point around t6 after a fall TECHNIQUE: Imaging protocol: XR of the thoracic spine. Views: 3 views. COMPARISON: No relevant prior studies available. FINDINGS: Bones/joints: No fracture or other acute abnormalities are seen in the thoracic spine. Diffuse chronic degenerative changes are present with sclerosis osteophyte formation and mild disc space narrowing. There is mild scoliosis convex to the right. Soft tissues: . Unremarkable. XR/XR thoracic spine 3V* [id number] IMPRESSION: Chronic degenerative disease. No acute abnormality.
[2020-07-09 06:58] LABS: Glucose Point of Care 142 mg/dL (70-110)
[2020-07-09] MEDS: ipratropium-albuterol 3 mL Neb INHALATION ×3 (08:25→15:16)
[2020-07-09] MEDS: amlodipine 10 mg Tablet PO (08:28)
[2020-07-09] MEDS: pantoprazole DR 40 mg Tablet PO (08:28)
[2020-07-09] MEDS: allopurinol 100 mg Tablet PO (08:28)
[2020-07-09] MEDS: folic acid 1 mg Tablet PO (08:28)
[2020-07-09] MEDS: docusate sodium 100 mg Capsule PO ×2 (08:28→17:08)
[2020-07-09] MEDS: cetirizine 10 mg Tablet PO (08:29)
[2020-07-09] MEDS: multivitamin therapeutic Tablet 1 TAB PO (08:29)
[2020-07-09] MEDS: lisinopril 20 mg Tablet 40 MG PO (08:29)
[2020-07-09] MEDS: thiamine 100 mg Tablet PO (08:30)
--- NOTE | 2020-07-09 09:00 | CT_ITS ---
WS: [id number] CTA OF THE CHEST WITH PULMONARY EMBOLISM PROTOCOL TECHNIQUE: High-resolution contrast enhanced CTA of the chest with coronal and sagittal reformatted i mages with pulmonary embolism protocol. MIP images are also reviewed. CLINICAL INFORMATION: hypoxemia, elevated d dimer COMPARISON: None. DLP: 498.[address] scans at [facility] use at least one of these dose optimization techniques: automat ed exposure control; mA and/or kV adjustment per patient size (includes targeted exams where dose is matched to clinical indication); or iterative reconstruction. FINDINGS: Images significantly degraded by motion artifact. Patient combative. Contrast-enhanced images are nondiagnostic for pulmonary embolus. Poor opacification of the pulmonary arteries. Proximal main pulmonary arteries appear grossly patent. Shallow inspiration. Aortic calcification. Coronary calcification. Bibasilar atelectasis. Upper lungs are well aerated. Prominent right mediastinal lymph nodes unchanged since CT August 2016 CT/CT angio chest PE protcl [id number] IMPRESSION: Limited examination due to patient motion 1. Nondiagnostic for pulmonary embolus. Proximal main pulmonary arteries appea r grossly patent. 2. Shallow inspiration with bibasilar atelectasis. 3. Enlarged right anterior mediastinal lymph nodes unchanged since 2016
--- NOTE | 2020-07-09 09:41 | PC.NURSE ---
rcvd verbal order from Dr Silva for ABG. Distribution Superintendent put order in.
[2020-07-09 10:05] LABS: Blood Gas Allen Test Pos; Blood Gas Sample Site Radial, left; Blood Gas Sample Type Arterial; Potassium Level - ABG 3.3 mmol/L (3.5-5.0)
[2020-07-09 10:06] LABS: ABG PCO2 55.5 mmHg (35-45); ABG PH Result 7.38 (7.35-7.45); Arterial Blood Gas Hematocrit 43.4 % (42-52); Base Excess ABG 6.2 mmol/L (-2.0-2.0); Carboxyhemoglobin 1.5 %THgb (0.4-20.1); HGB O2 Sat 96.9 % (95-100); Ionized Calcium Level - ABG 1.1 mmol/L (1.1-1.4); Methemoglobin 0.9 % (0.4-1.5); Oxygen Saturation ABG 99.3; Total Hemoglobin 14.1 g/dL (14-18)
[2020-07-09 10:08] LABS: Alveolar-Arterial Oxygen Gradi 11.2 mmHg (5-10); Blood Gas Operator Identificat GD; Oxygen Device NC
--- NOTE | 2020-07-09 10:11 | PC.NUTR ---
Pt screened at nutritional risk with MST score of 3, due to wt loss and decreased appetite. However, error noted in screen as pt replied no to weight loss question. Consuming 75% average X 4 recorded meals. Will assess at LOS per policy or as needed.
--- NOTE | 2020-07-09 10:25 | CT_ITS ---
WS: [id number] CT HEAD TECHNIQUE: Noncontrast CT of the head obtained from the skullbase to the vertex. CLINICAL INFORMATION: AMS COMPARISON: March 2018 DLP: All CT scans at [facility] use at least one of these dose optimization techniques: automat ed exposure control; mA and/or kV adjustment per patient size (includes targeted exams where dose is matched to clinical indication); or iterative reconstruction. FINDINGS: Some images degraded by motion. No evidence of intracranial hemorrhage or mass effect. Ventricular system and basal cisterns are de los santos nt. Mild small vessel changes with moderate parenchymal volume loss. No extra-axial fluid collections . No evidence of mass or mass effect. Normal marshall-white differentiation. Paranasal sinuses and mastoid air cells are well aerated. .Normal visualized soft tissues. CT/CT head wo con* [id number] IMPRESSION: 1. No evidence of intracranial hemorrhage or mass effect. 2. Mild small vessel changes. Moderate parenchymal volume loss. 3. No acute intracranial findings.
--- NOTE | 2020-07-09 10:25 | CT_ITS ---
WS: [id number] CT LUMBAR SPINE TECHNIQUE: Noncontrast CT of the lumbar spine with coronal and sagittal reformatted images. CLINICAL INFORMATION: back pain COMPARISON: None. DLP: 1909.[address] scans at [facility] use at least one of these dose optimization techniques: automat ed exposure control; mA and/or kV adjustment per patient size (includes targeted exams where dose is matched to clinical indication); or iterative reconstruction. FINDINGS: Mild lumbar curve. No acute compression. Anterior hypertrophic changes lower thoracic and lumbar spin e. Aortic calcification. No high-grade central canal stenosis. L1-L2: Mild annular bulging. Spinal canal and foramen are patent. Moderate facet arthropathy. L2-L3: Mild annular bulging. Moderate facet arthropathy. Spinal canal and foramen are patent. L3-L4: Mild disc bulging and osteophytic ridging. Spinal canal is patent. Moderate facet arthropathy. Foramen are patent. L4-L5: Small central disc osteophyte protrusion. Mild central canal stenosis. Osteophytic ridging. Mi ld right greater than left foraminal narrowing. Moderate facet arthropathy. L5-S1: Mild disc bulging with osteophytic ridging. Slight effacement of ventral thecal sac. Severe bi lateral bony foraminal narrowing. Advanced facet arthropathy. Visualized pelvic bony structures: Normal. Paravertebral soft tissues: Normal. CT/CT lumbar spine wo con* [id number] IMPRESSION: 1. Mild lumbar curve. No acute compression. No high-grade central canal stenos is. 2. Mild central canal stenosis L4-L5 and L5-S1 due to disc osteophyte complexe s. 3. Mild to moderate right L4-5 bony foraminal narrowing. 4. Severe bilateral L5-S1 bony foraminal narrowing. 5. Prominent anterior hypertrophic changes lower thoracic and lumbar spine.
--- NOTE | 2020-07-09 10:26 | PC.NURSE ---
per Dr Silva, put patient on bipap. bond writer notified RT
--- NOTE | 2020-07-09 10:27 | USCV_ITS ---
Arabella Lutz Age: 75 Gender: M : 1945 Exam Date: 07/09/2020 14:57 Ordering Phys: Gab Silva MD Technologist: Exam Location: [facility] – [place] Indication: SYNCOPE Risk Factors: Unknown Previous Vascular Surgery: None Right Brachial BP: / Left Brachial BP: / Right Left Velocity (cm/s) Spectral Plaque Velocity (cm/s) Spectral Plaque Syst/Diast Broadening Syst/Diast Broadening 71.70/ 14.30 Prox CCA 89.30 / 14.30 69.50/ 17.60 Mid CCA 77.20 / 18.70 70.60/ 9.90 Hetro Distal CCA 80.50 / 13.20 Hetro 110.30/22.10 Hetro Prox ICA 73.90 / 11.00 Hetro 109.20/37.50 Hetro Mid ICA 73.90 / 23.20 Hetro 110.30/29.80 Distal ICA 77.20 / 18.70 123.50 ECA 93.70 1.54 ICA/CCA 0.86 Antegrade Vertebral Antegrade 71.70/ 22.10 cm/s 57.30/ 13.20 cm/s Tri Subclavian Tri 104.7 97.00 0 CONCLUSIONS Right ICA stenosis <50%. Moderate atheromatous plaque right carotid bulb/ICA. Left ICA stenosis <50%. Mild atheromatous plaque left carotid bulb/ICA. Normal antegrade Doppler flow noted in the right vertebral artery. Normal antegrade Doppler flow noted in the left vertebral artery. Judson White MD (Electronically Signed) Final Date: 09 Jul 2020 17:10 S
[2020-07-09] MEDS: iohexol 350 mg/mL 100 mL Btl IV (11:08)
[2020-07-09] MEDS: cefTRIAXone 1,000 MG in sodium chloride 0.9% (plus) 50 ML 100 MG IV (11:37)
[2020-07-09 12:07] LABS: Glucose Point of Care 180 mg/dL (70-110)
--- NOTE | 2020-07-09 12:21 | PM.PN ---
Subjective Subjective: Interval history: Patient was examined this morning, he had received Ativan due to agitation and confusion early in the morning, currently on 4 L, sleeping, does not respond to sternal rub Patient was reexamined at noon, he sitting up on the side of the bed, he pulled out his IV, is been pulling at his catheter, he is alert to person, not to place, not to time, he tells me he is from [facility], he knows his birthdate, he tells me that he drinks a pint of alcohol daily, he is doing this for many years, no headache, no blurry vision, no chest pain, no palpitations, he does have bilateral extremity edema We will moved patient down into ICU due to concerns for alcohol withdrawal, concerns for respiratory depression with Ativan, will require closer monitoring, will require Precedex Vitals/I&O/Wt Last Vital Signs Temp 98.3 F 07/09/20 11:22 Pulse 98 07/09/20 11:22 Resp 20 H 07/09/20 11:22 BP 131/82 07/09/20 11:22 Pulse Ox 92 07/09/20 11:22 07/08/20 07/09/20 07/09/20 22:59 06:59 14:59 Intake Total 480 / 720 Output Total 200 / 200 200 / 400 Balance 280 / 520 -200 / 320 Weight last 48 hrs Weight 117.979 kg Weight 120.383 kg Physical Exam Const: COMMON NORMALS: no acute distress EXAM LIMITATIONS: altered mental status GENERAL APPEARANCE: cooperative NUTRITIONAL APPEARANCE: obese ORIENTATION/CONSCIOUSNESS: Yes awake and Yes oriented to person; not oriented to place and not oriented to time Neck/C-Spine: COMMON NORMALS: no JVD Resp: COMMON NORMALS: normal respiratory effort, No retractions, No use of accessory muscles and clear to auscultation bilaterally AUSCULTATION: clear to auscultation bilaterally Cardio: COMMON NORMALS: no JVD, regular rate, regular rhythm, S1 normal heart sound present and S2 normal heart sound present RATE: regular rate RHYTHM: regular rhythm HEART SOUNDS: S1 normal heart sound present and S2 normal heart sound present GI: OTHER: Abdomen distended, surgical scar, Extremity: OTHER: 2+ pitting edema Neuro: SENSORIUM/ORIENTATION: Yes oriented to person, No oriented to place and No oriented to time Urinary Catheter Management^: Harris: Cath Placed During This Visit: yes Reason for Continuing Indwelling Catheter: Acute Urinary Retention or Obstruction Urinary Catheter Date of Insertion: 07/07/20 Urinary Catheter Time of Insertion: 16:35 Data : 07/09/20 04:26 07/09/20 04:26 Micro: Microbiology 07/07/20 16:51 Blood Culture - Preliminary Blood NEGATIVE TO DATE 07/07/20 16:45 Blood Culture - Preliminary Blood NEGATIVE TO DATE A&P Assessment and plan (1) Fall at home: Status: Acute (2) Back pain: Has chronic lower back pain that is severe and limits his activities of daily living. Appears to have an acute component after fall -1. Mild lumbar curve. No acute compression. No high-grade central canal stenosis. 2. Mild central canal stenosis L4-L5 and L5-S1 due to disc osteophyte complexes. 3. Mild to moderate right L4-5 bony foraminal narrowing. 4. Severe bilateral L5-S1 bony foraminal narrowing. 5. Prominent anterior hypertrophic changes lower thoracic and lumbar spine. Status: Acute (3) Weakness: Status: Acute (4) Rhabdomyolysis: Either from fall or from tremors, currently with stable renal function Status: Acute (5) Altered mental status: According to the daughter, patient's mental status is not baseline. -CT of the head negative for acute stroke, negative for acute intracranial bleed -CT angiogram of the chest negative for pulmonary emboli, negative for pneumonia -UA negative for UTI -Arterial blood gas does not show significant hypercapnia -Does have chronic alcoholism, daily alcohol use, last use was the day of admission -Altered mental status likely secondary to alcohol withdrawal, component of Wernicke's Korsakoff syndrome -Continues to pull out IVs, prolonged catheter, episodes of agitation -With Ativan, patient became quite nonresponsive, has COPD, is AVAPS dependent, on 4 L, high risk of intubation Plan: -Moved down to ICU for Precedex drip -Ativan to be used sparingly - B12, folate, thiamine -Monitor closely for delirium tremens Status: Acute (6) Bilateral edema of lower extremity: In large part due to venous stasis as he almost never elevates his legs BNP, cardiac echo, hold fluids Status: Acute (7) D-dimer, elevated: Has risk factors for PE, chronically on oxygen. Has declined consideration for CTA of the chest unless he can be completely sedated due to back pain. Status: Acute (8) COPD (chronic obstructive pulmonary disease): Chronically on oxygen at 4 to 5 L Status: Acute (9) Sleep apnea: Uses AVAPS at night Status: Acute (10) Daily consumption of alcohol: Around the fifth of alcohol Status: Acute (11) BMI 39.0-39.9,adult: Status: Chronic Additional A&P Information Elevated blood sugar without a history of diabetes, hemoglobin A1c 5.6 Obesity with a BMI of 39 Significant macrocytosis, attributed to chronic alcohol use Thrombocytopenia, likely related to chronic alcohol use, thus far stable on Lovenox, will do liver ultrasound Hematuria, felt secondary to Harris trauma but will need to monitor while on diuresis Hyperuricemia Sinus tachycardia which I suspect is his baseline due to his chronic respiratory status Rocephin started for possible UTI Hold Lasix Discontinue IV fluids Recheck CK level in the morning Continue Harris catheter for close monitoring of urine output Monitor for increasing hematuria given use of prophylactic Lovenox Add allopurinol Hold pain medications Hold meloxicam Discontinue Flexeril in case this is what caused his mental status changes his daughter saw Check ammonia level Multivitamin, folate, thiamine, oral magnesium Venous Doppler of the lower extremities has been ordered but not yet completed PT evaluation appreciated AVAPS during sleep Continue home oxygen Breathing treatments PPI Lovenox for DVT prophylaxis Close monitoring for acute clinical decline for which he is high risk Request records from [facility] Supportive care otherwise Full code Attestations Medical Necessity Statement*: Patient requires hospitalization, inpatient, for alcohol withdrawal, altered mental status, deconditioning, falls Coding Level of Care Code Acute Pacs Administrator for Chg Fwd Diagnoses Fall at home W19.XXXA; Y92.009 Back pain M54.9 Weakness R53.1 Rhabdomyolysis M62.82 Altered mental status R41.82 Bilateral edema of lower extremity R60.0 D-dimer, elevated R79.89 COPD (chronic obstructive pulmonary disease) J44.9 Sleep apnea G47.30 Daily consumption of alcohol Z78.9 BMI 39.0-39.9,adult Z68.39
[2020-07-09 13:06] LABS: Procalcitonin 0.22 ng/mL (0-0.5)
[2020-07-09 13:16] LABS: C Reactive Protein 109.9 mg/L (0.0-4.9)
--- NOTE | 2020-07-09 14:13 | PC.NURSE ---
bedside report given to ALETA Harrington from ICU. patient taken to ICU 4 via bed by television writer and Juany.
--- NOTE | 2020-07-09 14:18 | US_ITS ---
WS: [id number] ULTRASOUND ABDOMEN CLINICAL INFORMATION: thrombocytopenia COMPARISON: None. FINDINGS: Liver Size: Enlarged Craniocaudal length: 21.3 cm. Echogenicity: Coarse Surface nodularity: None. Mass (size and location): None. Bile ducts Intrahepatic ducts: Normal. Common bile duct diameter: 0.6 cm. Gallbladder Removed Pancreas Normal as visualized. Spleen Splenomegaly: Present Craniocaudal length: 11.8 cm. Right kidney: Simple cyst left kidney measuring 2.7 cm Hydronephrosis: None. Size: 12.0 cm x 8.1 cm x 6.7 cm Left kidney: Normal. Hydronephrosis: None. Size: 11.2 cm x 5.4 cm x 5.9 cm. Abdominal aorta and IVC Visualized portions are normal. Ascites: None. US/US abdomen complete* [id number] IMPRESSION: 1. Hepatomegaly with diffuse fatty infiltration. 2. Splenomegaly 3. Cholecystectomy. 4. Normal common bile duct 5.5 mm 5. No hydronephrosis in either kidney.
[2020-07-09 14:42] LABS: Glucose Urine UA Norm (Normal); Protein Urine 1+ (Negative); Specific Gravity, Urine 1.005 (1.005-1.030); Urine Appearance Hazy (CLEAR); Urine Color Yellow (Yellow); pH Urine 6.5 (5-7)
[2020-07-09 14:43] LABS: Add Urine Microscopic? YES; Bilirubin Urine 1+ (Negative); Blood Urine 3+ (Negative); Ketones Urine Negative (Negative); Leukocyte Esterase Urine Negative (Negative); Nitrate Urine Negative (Negative); Urobilinogen Urine 8 mg/dL (Negative)
--- NOTE | 2020-07-09 14:59 | PC.NURSE ---
Patient was brought to ICU by this nurse and medsurg staff at 1400. On medsurg this nurse noted that patient was only responsive to painful stimuli with pinpoint and sluggish pupils. When brought to ICU patient was responding to verbal command and is alert and orientated to self, birthday, and place. Patient is seen to have labored breathing on 4L NC which he stated is normal for him. 4+ pitting edema is noted to lower extremities. Bedrails are padded and suction is available. Area on left upper arm is red and edematous from previous IV.
[2020-07-09 16:43] LABS: Glucose Point of Care 143 mg/dL (70-110)
[2020-07-09 16:56] LABS: Bacteria Urine TRACE /hpf; RBC Urine 25-40 /hpf (0-2); Squamous Epithelial Cell Urine 0-4 /hpf (0-5); WBC Urine 0-4 /hpf (0-5)
[2020-07-09 17:04] LABS: Hepatitis A Antibody IgM Non-Reactive (Nonreactive); Hepatitis B Core IgM Non-Reactive (Nonreactive); Hepatitis B Surface Antigen Non-Reactive (Nonreactive); Hepatitis C Virus Antibody Non-Reactive (Nonreactive)
[2020-07-09] MEDS: cyanocobalamin 1,000 mcg Tablet 1000 MCG PO (17:08)
[2020-07-09] MEDS: trazodone 50 mg Tablet PO (17:08)
[2020-07-09 19:55] LABS: Glucose Point of Care 98 mg/dL (70-110)
[2020-07-10] VITALS (56 sets, daily range): BP systolic 101–166; BP diastolic 62–82; PULSE 69–107; RESP 10–26; TEMP 36.9–37; O2SAT 84–97
[2020-07-10] MEDS: enoxaparin 40 mg/0.4 mL Syringe SUBCUT (03:45)
[2020-07-10 04:43] LABS: Basophils % 0.8 %; Eosinophils # 0.2 10^3/uL (0.0-0.8); Eosinophils % 4.2 %; Hematocrit 41.3 % (42.0-52.0); Hemoglobin 12.7 g/dL (11.7-16.6); Lymphocytes # 0.6 10^3/uL (0.8-4.8); Lymphocytes % 11.7 %; Mean Corpuscular HGB Conc 30.8 g/dL (30.0-36.0); Mean Corpuscular Volume 110.7 fL (80-94); Mean Platelet Volume 9.1 fL (7.4-10.4); Monocytes # 0.7 10^3/uL (0.2-0.9); Monocytes % 13.6 %; Neutrophils # 3.31 10^3/uL (1.8-7.7); Neutrophils % 69.5 %; Nucleated Red Blood Cells % 0 %; Platelet Count 116 10^3/cmm (130-400); Red Blood Count 3.73 10^6/uL (4.1-5.3); Red Cell Distribution Width 12.7 % (12.1-15.1); White Blood Count 4.8 10^3/uL (4.0-10.0)
[2020-07-10 04:59] LABS: Ammonia 54 umol/L (16-60); Lactate (Lactic Acid level) 0.7 mmol/L (0.5-2.2)
[2020-07-10 05:01] LABS: Alanine Aminotransferase 14 U/L (0-41); Albumin Level 3.2 g/dL (3.5-5.2); Alkaline Phosphatase 37 IU/L (40-130); Anion Gap 13.4 (5-19); Aspartate Amino Transferase 27 U/L (0-40); Blood Urea Nitrogen 22 mg/dL (8-23); Calcium 8.3 mg/dL (8.5-10.5); Carbon Dioxide 32 mmol/L (22-29); Chloride 100 mmol/L (98-107); Glucose 82 mg/dL (65-115); Magnesium 1.9 mg/dL (1.7-2.3); Osmolality Calculated 296 mOsm/kg (285-295); Phosphorus 3.4 mg/dL (2.5-4.5); Potassium 3.4 mmol/L (3.5-5.1); Sodium 142 mmol/L (136-145); Total Bilirubin 0.8 mg/dL (0.15-1.2); Total Protein 6.2 g/dL (6.6-8.7)
[2020-07-10 05:05] LABS: NT Pro B Type Natriuretic Pept 103 pg/mL (0-450)
[2020-07-10] MEDS: acetaminophen 325 mg Tablet 650 MG PO ×2 (07:22→15:34)
[2020-07-10 07:40] LABS: Glucose Point of Care 86 mg/dL (70-110)
[2020-07-10] MEDS: cyanocobalamin 1,000 mcg Tablet 1000 MCG PO (08:09)
[2020-07-10] MEDS: pantoprazole DR 40 mg Tablet PO (08:09)
[2020-07-10] MEDS: allopurinol 100 mg Tablet PO (08:09)
[2020-07-10] MEDS: folic acid 1 mg Tablet PO (08:10)
[2020-07-10] MEDS: amlodipine 10 mg Tablet PO (08:10)
[2020-07-10] MEDS: cetirizine 10 mg Tablet PO (08:10)
[2020-07-10] MEDS: lisinopril 20 mg Tablet 40 MG PO (08:10)
[2020-07-10] MEDS: multivitamin therapeutic Tablet 1 TAB PO (08:10)
[2020-07-10] MEDS: thiamine 100 mg Tablet PO (08:10)
[2020-07-10] MEDS: potassium chloride ER 20 mEq Tablet 40 MEQ PO (08:13)
[2020-07-10] MEDS: ipratropium-albuterol 3 mL Neb INHALATION ×4 (08:40→21:25)
--- NOTE | 2020-07-10 09:18 | PC.CHAP ---
Pastoral Care Encounter/Spiritual Assessment Type of Contact [] Declined cheese pancake roller visit [] Patient/Family/Request visit [] Outpatient visit [] Follow-up visit [] Physician referral [] Code/Alert [x] Routine visit [] Staff referral [] Actively dying [] Patient sleeping [] Family support [] [] Out of room [] Palliative care [] [] Receiving care in room [] Pre-surgical visit [] Trauma [] Long length of stay [x] ICU visit [] Other: Relational/Emotional Strength [] Patient feels connected with others/family/visitors/staff [] Distress [] Loneliness/isolation [] Abandonment Spirituality of Patient [] Person of Arabella [] Attends Anabaptism of their Arabella [] Believes in Prayer [] Reads Bible or Episcopalian materials [] There are Spiritual issues to be addressed Bean Roaster Interventions [x] Prayer [] Active listening [] Non-anxious presence [] Spiritual/emotional support [] Crisis/trauma care [] Spiritual counseling [] Bereavement support [] Provided bereavement packet [] Provided Bible/devotional materials [] Provided toy/stuffed animal, coloring book to patient or family member [] Provided Communion [] Anointing/[place] [] Salvation [x] Completed spiritual assessment [] Other: Impact on Illness or Injury [] Angry [] Fearful [] Anxious [] Often cries [] Exhaustion [] Unable to work [] Unable to attend faith [] Unable to walk/stand [] Unable to read [] Unable to drive [] Unable to eat/drink [] Unable to sleep [] Unable to be with family [] Patient intubated [] Other: Summary Time spent with patient
--- NOTE | 2020-07-10 10:48 | PM.PN ---
Subjective Subjective: Interval history: This morning patient was examined, he is sitting up in bed, alert to person, place, to time, follows all commands, he knows why he is here in the hospital, he tells me that he is here because both of his legs are weak, and he has been drinking a lot of alcohol, he has been drinking half a pint of alcohol for over half his life, he understands he is weak, from peripheral neuropathy, he has a component Wernicke's encephalopathy Korsakoff syndrome, he is deconditioned, he understands that he is can have increased needs, I strongly recommended residential placement, he is much more agreeable this morning, however he tells me his cannot talk to his daughter I was able to reach daughter this morning, I advised her of patient's alcohol withdrawal, that he is doing better, but he still in the window, he is weakness of bilateral lower extremity likely from peripheral neuropathy from alcohol consumption, he also has significant spinal stenosis seen on lumbar CT, he also has a ataxia, confusion, Warnicke's encephalopathy Korsakoff syndrome, she is been trying to get him to go to a residential, however he refuses, she tells me that he has been drinking for over 50 years Vitals/I&O/Wt Last Vital Signs Temp 98.4 F 07/10/20 07:30 Pulse 103 H 07/10/20 09:30 Resp 26 H 07/10/20 09:30 BP 140/65 07/10/20 09:30 Pulse Ox 90 07/10/20 09:30 07/09/20 07/10/20 07/10/20 22:59 06:59 14:59 Intake Total 0 / 50 240 / 290 200 / 200 Output Total 500 / 500 Balance 0 / 50 -260 / -210 200 / 200 Weight last 48 hrs Weight 120.344 kg Weight 117.979 kg Physical Exam Const: COMMON NORMALS: no acute distress, patient oriented x3 and alert GENERAL APPEARANCE: cooperative NUTRITIONAL APPEARANCE: obese ORIENTATION/CONSCIOUSNESS: Yes awake, Yes oriented to person, Yes oriented to place and Yes oriented to time Chest: COMMONS NORMALS: normal inspection of the chest Resp: COMMON NORMALS: normal respiratory effort, No retractions, No use of accessory muscles and clear to auscultation bilaterally AUSCULTATION: clear to auscultation bilaterally Cardio: COMMON NORMALS: regular rate, regular rhythm, S1 normal heart sound present, S2 normal heart sound present and No murmurs present (Cardio) RATE: regular rate RHYTHM: regular rhythm HEART SOUNDS: S1 normal heart sound present and S2 normal heart sound present GI: COMMON NORMALS: Soft to palpation and non-tender INSPECTION: Yes abdominal distension PALPATION: Yes Soft to palpation Extremity: COMMON NORMALS: no pedal edema Neuro: COMMON NORMALS: patient oriented x3, CN's II-XII intact bilaterally, moves all extremities and no focal motor deficits SENSORIUM/ORIENTATION: Yes alert, Yes oriented to person, Yes oriented to place and Yes oriented to time Urinary Catheter Management^: Hraris: Cath Placed During This Visit: yes Reason for Continuing Indwelling Catheter: Acute Urinary Retention or Obstruction Urinary Catheter Date of Insertion: 07/07/20 Urinary Catheter Time of Insertion: 16:35 Data : 07/10/20 03:45 07/10/20 03:45 Micro: Microbiology 07/09/20 13:38 Blood Culture - Preliminary Blood SPECIMEN COLLECTED 07/09/20 13:38 Blood Culture - Preliminary Blood SPECIMEN COLLECTED A&P Assessment and plan (1) Fall at home: I have recommended have recommended short-term rehab, for recurrent falls related to peripheral neuropathy related to alcohol consumption, lumbar spinal stenosis Status: Acute (2) Back pain: Has chronic lower back pain that is severe and limits his activities of daily living. Appears to have an acute component after fall -1. Mild lumbar curve. No acute compression. No high-grade central canal stenosis. 2. Mild central canal stenosis L4-L5 and L5-S1 due to disc osteophyte complexes. 3. Mild to moderate right L4-5 bony foraminal narrowing. 4. Severe bilateral L5-S1 bony foraminal narrowing. 5. Prominent anterior hypertrophic changes lower thoracic and lumbar spine. Status: Acute (3) Weakness: Status: Acute (4) Rhabdomyolysis: Either from fall or from tremors, currently with stable renal function Status: Acute (5) Altered mental status: According to the daughter, patient's mental status is not baseline. -CT of the head negative for acute stroke, negative for acute intracranial bleed -CT angiogram of the chest negative for pulmonary emboli, negative for pneumonia -UA negative for UTI -Arterial blood gas does not show significant hypercapnia -Does have chronic alcoholism, daily alcohol use, last use was the day of admission -Altered mental status likely secondary to alcohol withdrawal, component of Wernicke's Korsakoff syndrome -No episode of agitation in the last 24 in the last 24 hours no episodes of agitation, no Ativan required -With Ativan, patient became quite nonresponsive, has COPD, is AVAPS dependent, on 4 L, high risk of intubation, prefer Precedex Plan: -Moved down to ICU for Precedex drip -Ativan to be used sparingly - B12, folate, thiamine -Monitor closely for delirium tremens Status: Acute (6) Bilateral edema of lower extremity: In large part due to venous stasis as he almost never elevates his legs Echo pending Status: Acute (7) D-dimer, elevated: Has risk factors for PE, chronically on oxygen. Has declined consideration for CTA of the chest unless he can be completely sedated due to back pain. Status: Acute (8) COPD (chronic obstructive pulmonary disease): Chronically on oxygen at 4 to 5 L Status: Acute (9) Sleep apnea: Uses AVAPS at night Status: Acute (10) Daily consumption of alcohol: Around the fifth of alcohol Status: Acute (11) BMI 39.0-39.9,adult: Status: Chronic (12) Wernicke encephalopathy syndrome: -Has ataxia, confusion episodes, likely related to Warnicke's encephalopathy -Has components of Korsakoff syndrome Status: Acute (13) Peripheral neuropathy: Likely related to alcohol consumption Status: Acute Additional A&P Information Elevated blood sugar without a history of diabetes, hemoglobin A1c 5.6 Obesity with a BMI of 39 Significant macrocytosis, attributed to chronic alcohol use Thrombocytopenia, likely related to chronic alcohol use, thus far stable on Lovenox, will do liver ultrasound Hematuria, felt secondary to Harris trauma, hold off on diuresis Hyperuricemia Sinus tachycardia which I suspect is his baseline due to his chronic respiratory status Rocephin started for possible UTI Hold Lasix Discontinue IV fluids Recheck CK level in the morning Continue Harris catheter for close monitoring of urine output Monitor for increasing hematuria given use of prophylactic Lovenox Monitor for alcohol withdrawal, CIWA score Add allopurinol Hold pain medications Hold meloxicam Discontinue Flexeril in case this is what caused his mental status changes his daughter saw Ammonia level within normal limits Multivitamin, folate, thiamine, oral magnesium Venous Doppler of the lower extremities has been ordered but not yet completed PT evaluation appreciated AVAPS during sleep Continue home oxygen Breathing treatments PPI Lovenox for DVT prophylaxis Patient considering residential placement Request records from [facility] Supportive care otherwise Full code Hopefully can de-escalate out of ICU in the next 12 to 24 hours Attestations Medical Necessity Statement*: Patient requires hospitalization, for alcohol withdrawal, Wernicke's encephalopathy, peripheral neuropathy, deconditioning, ICU level of care due to alcohol withdrawal, agitation, critical care time spent over 35 minutes Coding Level of Care Code Acute Clerk Of Court for Chg Fwd Diagnoses Fall at home W19.XXXA; Y92.009 Back pain M54.9 Weakness R53.1 Rhabdomyolysis M62.82 Altered mental status R41.82 Bilateral edema of lower extremity R60.0 D-dimer, elevated R79.89 COPD (chronic obstructive pulmonary disease) J44.9 Sleep apnea G47.30 Daily consumption of alcohol Z78.9 BMI 39.0-39.9,adult Z68.39 Wernicke encephalopathy syndrome E51.2 Peripheral neuropathy G62.9
[2020-07-10] MEDS: cefTRIAXone 1,000 MG in sodium chloride 0.9% (plus) 50 ML 100 MG IV (11:40)
--- NOTE | 2020-07-10 17:07 | PC.SOCIAL ---
IMM update IMM updated pg 2 with patient. He verbalized an understanding. Copy placed in chart, initialed, dated, and timed.
[2020-07-10] MEDS: trazodone 50 mg Tablet PO (17:42)
[2020-07-11] VITALS (36 sets, daily range): BP systolic 118–145; BP diastolic 58–81; PULSE 63–128; RESP 1–26; TEMP 36.8–37.2; O2SAT 92–99
[2020-07-11] MEDS: enoxaparin 40 mg/0.4 mL Syringe SUBCUT (02:03)
[2020-07-11 04:56] LABS: Basophils # 0.1 10^3/uL (0.0-0.1); Basophils % 1.1 %; Eosinophils # 0.2 10^3/uL (0.0-0.8); Eosinophils % 4.7 %; Hematocrit 40.5 % (42.0-52.0); Hemoglobin 12.7 g/dL (11.7-16.6); Lymphocytes # 0.8 10^3/uL (0.8-4.8); Mean Corpuscular HGB Conc 31.4 g/dL (30.0-36.0); Mean Corpuscular Hemoglobin 34.9 pg (28.0-34.0); Mean Corpuscular Volume 111.3 fL (80-94); Mean Platelet Volume 9.1 fL (7.4-10.4); Monocytes # 0.7 10^3/uL (0.2-0.9); Monocytes % 15.6 %; Neutrophils # 2.63 10^3/uL (1.8-7.7); Neutrophils % 59.4 %; Nucleated Red Blood Cells % 0 %; Platelet Count 126 10^3/cmm (130-400); Red Blood Count 3.64 10^6/uL (4.1-5.3); Red Cell Distribution Width 12.8 % (12.1-15.1); White Blood Count 4.4 10^3/uL (4.0-10.0)
[2020-07-11 05:16] LABS: NT Pro B Type Natriuretic Pept 50 pg/mL (0-450)
[2020-07-11 05:19] LABS: Alanine Aminotransferase 13 U/L (0-41); Albumin Level 3.2 g/dL (3.5-5.2); Alkaline Phosphatase 40 IU/L (40-130); Aspartate Amino Transferase 22 U/L (0-40); Blood Urea Nitrogen 20 mg/dL (8-23); Calcium 8.8 mg/dL (8.5-10.5); Carbon Dioxide 31 mmol/L (22-29); Chloride 100 mmol/L (98-107); Globulin 3.1 g/dL (1.3-4.6); Glucose 105 mg/dL (65-115); Magnesium 1.9 mg/dL (1.7-2.3); Osmolality Calculated 295 mOsm/kg (285-295); Phosphorus 3.9 mg/dL (2.5-4.5); Sodium 141 mmol/L (136-145); Total Bilirubin 0.5 mg/dL (0.15-1.2); Total Protein 6.3 g/dL (6.6-8.7)
[2020-07-11 05:21] LABS: Anion Gap 13.4 (5-19); Potassium 3.4 mmol/L (3.5-5.1)
--- NOTE | 2020-07-11 06:10 | PC.NURSE ---
Patient very compliant with staff and cares. No changes overnight. Continue care.
[2020-07-11] MEDS: ipratropium-albuterol 3 mL Neb INHALATION ×3 (08:18→20:08)
[2020-07-11] MEDS: lisinopril 20 mg Tablet 40 MG PO (08:44)
[2020-07-11] MEDS: folic acid 1 mg Tablet PO (08:45)
[2020-07-11] MEDS: acetaminophen 325 mg Tablet 650 MG PO ×2 (08:45→20:17)
[2020-07-11] MEDS: multivitamin therapeutic Tablet 1 TAB PO (08:45)
[2020-07-11] MEDS: cetirizine 10 mg Tablet PO (08:48)
[2020-07-11] MEDS: cyanocobalamin 1,000 mcg Tablet 1000 MCG PO (08:48)
[2020-07-11] MEDS: pantoprazole DR 40 mg Tablet PO (08:48)
[2020-07-11] MEDS: thiamine 100 mg Tablet PO (08:49)
[2020-07-11] MEDS: allopurinol 100 mg Tablet PO (08:49)
[2020-07-11] MEDS: amlodipine 10 mg Tablet PO (08:49)
[2020-07-11] MEDS: docusate sodium 100 mg Capsule PO ×2 (08:50→18:01)
[2020-07-11] MEDS: potassium chloride ER 20 mEq Tablet 40 MEQ PO (08:55)
[2020-07-11 10:16] LABS: Glucose Point of Care 117 mg/dL (70-110)
--- NOTE | 2020-07-11 10:30 | PC.CHAP ---
Pastoral Care Encounter/Spiritual Assessment Type of Contact [] Declined drum builder visit [] Patient/Family/Request visit [] Outpatient visit [] Follow-up visit [] Physician referral [] Code/Alert [x] Routine visit [] Staff referral [] Actively dying [] Patient sleeping [] Family support [] [] Out of room [] Palliative care [] [] Receiving care in room [] Pre-surgical visit [] Trauma [] Long length of stay [x] ICU visit [] Other: Relational/Emotional Strength [] Patient feels connected with others/family/visitors/staff [] Distress [] Loneliness/isolation [] Abandonment Spirituality of Patient [] Person of Arabella [] Attends Religion of their Arabella [] Believes in Prayer [] Reads Bible or Faith materials [] There are Spiritual issues to be addressed Search Marketing Analyst Interventions [x] Prayer [x] Active listening [x] Non-anxious presence [x] Spiritual/emotional support [] Crisis/trauma care [] Spiritual counseling [] Bereavement support [] Provided bereavement packet [] Provided Bible/devotional materials [] Provided toy/stuffed animal, coloring book to patient or family member [] Provided Communion [] Anointing/[place] [] Salvation [x] Completed spiritual assessment [] Other: Impact on Illness or Injury [] Angry [] Fearful [] Anxious [] Often cries [] Exhaustion [] Unable to work [] Unable to attend anglican [] Unable to walk/stand [] Unable to read [] Unable to drive [] Unable to eat/drink [] Unable to sleep [] Unable to be with family [] Patient intubated [] Other: Summary patient in pain... Time spent with patient 5 min
--- NOTE | 2020-07-11 11:38 | P.PN_ITS ---
Subjective Subjective: Interval history: Patient was examined this morning, he understands that he will need to go to short-term rehab, due to bilateral extremity weakness, he tells me that he is waiting on his daughter, no chest pain, no palpitations, no tremors, denies hearing or seeing things are not there, denies any diaphoresis, Vitals/I&O/Wt Last Vital Signs Temp 98.6 F 07/10/20 20:00 Pulse 94 07/11/20 09:00 Resp 26 H 07/11/20 09:00 BP 134/78 07/11/20 08:01 Pulse Ox 94 07/11/20 08:18 07/10/20 07/11/20 07/11/20 22:59 06:59 14:59 Intake Total 240 / 750 120 / 870 480 / 480 Output Total 500 / 500 500 / 1000 Balance -260 / 250 -380 / -130 480 / 480 Weight last 48 hrs Weight 119.918 kg Weight 120.344 kg Physical Exam Const: COMMON NORMALS: no acute distress, patient oriented x3 and alert ORIENTATION/CONSCIOUSNESS: Yes awake, Yes oriented to person, Yes oriented to place and Yes oriented to time Resp: COMMON NORMALS: normal respiratory effort, No retractions, No use of accessory muscles, clear to auscultation bilaterally and percussion normal AUSCULTATION: clear to auscultation bilaterally PERCUSSION: percussion normal Cardio: COMMON NORMALS: regular rate, regular rhythm, S1 normal heart sound present and S2 normal heart sound present RATE: regular rate RHYTHM: regular rhythm HEART SOUNDS: S1 normal heart sound present and S2 normal heart sound present GI: COMMON NORMALS: Soft to palpation INSPECTION: Yes normal to inspection and Yes abdominal distension PALPATION: Yes Soft to palpation, No Firmness to palpation present (GI), No Tenderness to palpation present (GI) and No Guarding due to palpation present (GI) Extremity: OTHER: 2+ pitting edema Neuro: COMMON NORMALS: patient oriented x3, CN's II-XII intact bilaterally and moves all extremities SENSORIUM/ORIENTATION: Yes alert, Yes oriented to person, Yes oriented to place and Yes oriented to time Urinary Catheter Management^: Harris: Cath Placed During This Visit: yes Reason for Continuing Indwelling Catheter: Accurate Measurement of Urinary Output in Critically Ill Patients Urinary Catheter Date of Insertion: 07/07/20 Urinary Catheter Time of Insertion: 16:35 Data : 07/11/20 04:15 07/11/20 04:15 Micro: Microbiology 07/09/20 13:08 Urine Culture - Final Urine Catheterized 07/09/20 13:38 Blood Culture - Preliminary Blood NEGATIVE TO DATE 07/09/20 13:38 Blood Culture - Preliminary Blood NEGATIVE TO DATE A&P Assessment and plan (1) Fall at home: I have recommended have recommended short-term rehab, for recurrent falls related to peripheral neuropathy related to alcohol consumption, lumbar spinal stenosis Status: Acute (2) Back pain: Has chronic lower back pain that is severe and limits his activities of daily living. Appears to have an acute component after fall -1. Mild lumbar curve. No acute compression. No high-grade central canal stenosis. 2. Mild central canal stenosis L4-L5 and L5-S1 due to disc osteophyte complexes. 3. Mild to moderate right L4-5 bony foraminal narrowing. 4. Severe bilateral L5-S1 bony foraminal narrowing. 5. Prominent anterior hypertrophic changes lower thoracic and lumbar spine. Status: Acute (3) Weakness: Status: Acute (4) Rhabdomyolysis: Either from fall or from tremors, currently with stable renal function Status: Acute (5) Altered mental status: According to the daughter, patient's mental status is not baseline. -CT of the head negative for acute stroke, negative for acute intracranial bleed -CT angiogram of the chest negative for pulmonary emboli, negative for pneumonia -UA negative for UTI -Arterial blood gas does not show significant hypercapnia -Does have chronic alcoholism, daily alcohol use, last use was the day of admission -Altered mental status likely secondary to alcohol withdrawal, component of Wernicke's Korsakoff syndrome -No episode of agitation in the last 24 in the last 24 hours no episodes of agitation, no Ativan required -With Ativan, patient became quite nonresponsive, has COPD, is AVAPS dependent, on 4 L, high risk of intubation, prefer Precedex Plan: -Moved down to ICU for Precedex drip -Ativan to be used sparingly - B12, folate, thiamine -Monitor closely for delirium tremens Status: Acute (6) Bilateral edema of lower extremity: In large part due to venous stasis as he almost never elevates his legs Echo shows an EF of 60%, no diagnostic regional wall motion abnormalities, abnormal septal motion, no has no chest pain complaints, will give 1 dose of Lasix with potassium today Status: Acute (7) D-dimer, elevated: Has risk factors for PE, chronically on oxygen. Has declined consideration for CTA of the chest unless he can be completely sedated due to back pain. Status: Acute (8) COPD (chronic obstructive pulmonary disease): Chronically on oxygen at 4 to 5 L Status: Acute (9) Sleep apnea: Uses AVAPS at night Status: Acute (10) Daily consumption of alcohol: Around the fifth of alcohol Status: Acute (11) BMI 39.0-39.9,adult: Status: Chronic (12) Wernicke encephalopathy syndrome: -Has ataxia, confusion episodes, likely related to Warnicke's encephalopathy -Has components of Korsakoff syndrome Status: Acute (13) Peripheral neuropathy: Likely related to alcohol consumption Status: Acute Additional A&P Information Elevated blood sugar without a history of diabetes, hemoglobin A1c 5.6 Obesity with a BMI of 39 Significant macrocytosis, attributed to chronic alcohol use Thrombocytopenia, likely related to chronic alcohol use, thus far stable on Lovenox, will do liver ultrasound Hematuria, felt secondary to Harris trauma, hold off on diuresis Hyperuricemia Sinus tachycardia which I suspect is his baseline due to his chronic respiratory status Rocephin started for possible UTI Discontinue Harris Monitor for increasing hematuria given use of prophylactic Lovenox Monitor for alcohol withdrawal, CIWA score Add allopurinol Hold pain medications Hold meloxicam Discontinue Flexeril in case this is what caused his mental status changes his daughter saw Ammonia level within normal limits Multivitamin, folate, thiamine, oral magnesium Venous Doppler of the lower extremities has been ordered but not yet completed PT evaluation appreciated AVAPS during sleep Continue home oxygen Breathing treatments PPI Lovenox for DVT prophylaxis Patient considering fpc placement Request records from [facility] Supportive care otherwise Full code Plan for today move out of ICU, continue PT OT, will arrange for fpc, monitor withdrawal Attestations Medical Necessity Statement*: Patient requires hospitalization for alcohol encephalopathy, peripheral neuropathy, generalized weakness, Coding Level of Care Code Acute [employer] for Chg Fwd Diagnoses Fall at home W19.XXXA; Y92.009 Back pain M54.9 Weakness R53.1 Rhabdomyolysis M62.82 Altered mental status R41.82 Bilateral edema of lower extremity R60.0 D-dimer, elevated R79.89 COPD (chronic obstructive pulmonary disease) J44.9 Sleep apnea G47.30 Daily consumption of alcohol Z78.9 BMI 39.0-39.9,adult Z68.39 Wernicke encephalopathy syndrome E51.2 Peripheral neuropathy G62.9
[2020-07-11] MEDS: FUROsemide 10 mg/mL SDV 4mL 40 MG IVP (11:59)
[2020-07-11 12:11] LABS: Glucose Point of Care 134 mg/dL (70-110)
--- NOTE | 2020-07-11 13:34 | PC.NURSE ---
recd. this am with bipap on. removed for breakfast.
[2020-07-11] MEDS: cefTRIAXone 1,000 MG in sodium chloride 0.9% (plus) 50 ML 100 MG IV (13:52)
--- NOTE | 2020-07-11 14:05 | PC.NURSE ---
1330 transferred to [facility]/2
[2020-07-11] MEDS: trazodone 50 mg Tablet PO (18:01)
--- NOTE | 2020-07-11 19:11 | PC.NURSE ---
chaudhari removed with 8ml in balloon of chaudhari catheter, pt had dark yellow urine in tube of catheter, pt tolerated well.
[2020-07-11 21:42] LABS: Glucose Point of Care 160 mg/dL (70-110)
[2020-07-12] VITALS (21 sets, daily range): BP systolic 108–138; BP diastolic 60–70; PULSE 71–110; RESP 16–20; TEMP 36.6–37.3; O2SAT 93–98
[2020-07-12] MEDS: enoxaparin 40 mg/0.4 mL Syringe SUBCUT (03:15)
[2020-07-12 06:18] LABS: Basophils # 0.1 10^3/uL (0.0-0.1); Basophils % 1.1 %; Eosinophils # 0.3 10^3/uL (0.0-0.8); Eosinophils % 5.4 %; Hemoglobin 12.5 g/dL (11.7-16.6); Lymphocytes # 0.7 10^3/uL (0.8-4.8); Lymphocytes % 14.8 %; Mean Corpuscular HGB Conc 31.3 g/dL (30.0-36.0); Mean Corpuscular Hemoglobin 34.5 pg (28.0-34.0); Mean Corpuscular Volume 110.5 fL (80-94); Mean Platelet Volume 9.3 fL (7.4-10.4); Monocytes # 0.9 10^3/uL (0.2-0.9); Monocytes % 18.7 %; Neutrophils # 2.73 10^3/uL (1.8-7.7); Neutrophils % 59.6 %; Nucleated Red Blood Cells % 0 %; Platelet Count 151 10^3/cmm (130-400); Red Blood Count 3.62 10^6/uL (4.1-5.3); Red Cell Distribution Width 12.5 % (12.1-15.1); White Blood Count 4.6 10^3/uL (4.0-10.0)
[2020-07-12 06:41] LABS: Glucose Point of Care 118 mg/dL (70-110)
[2020-07-12 06:42] LABS: Alanine Aminotransferase 13 U/L (0-41); Albumin Level 3.5 g/dL (3.5-5.2); Alkaline Phosphatase 41 IU/L (40-130); Anion Gap 11.5 (5-19); Aspartate Amino Transferase 20 U/L (0-40); Blood Urea Nitrogen 18 mg/dL (8-23); Calcium 8.9 mg/dL (8.5-10.5); Carbon Dioxide 30 mmol/L (22-29); Chloride 104 mmol/L (98-107); Globulin 2.9 g/dL (1.3-4.6); Glucose 116 mg/dL (65-115); Magnesium 1.8 mg/dL (1.7-2.3); Osmolality Calculated 297 mOsm/kg (285-295); Phosphorus 3.5 mg/dL (2.5-4.5); Potassium 3.5 mmol/L (3.5-5.1); Sodium 142 mmol/L (136-145); Total Bilirubin 0.6 mg/dL (0.15-1.2); Total Protein 6.4 g/dL (6.6-8.7)
[2020-07-12 07:20] LABS: NT Pro B Type Natriuretic Pept 51 pg/mL (0-450)
[2020-07-12] MEDS: ipratropium-albuterol 3 mL Neb INHALATION ×4 (08:00→19:37)
[2020-07-12] MEDS: cyanocobalamin 1,000 mcg Tablet 1000 MCG PO (08:28)
[2020-07-12] MEDS: pantoprazole DR 40 mg Tablet PO (08:28)
[2020-07-12] MEDS: folic acid 1 mg Tablet PO (08:28)
[2020-07-12] MEDS: cetirizine 10 mg Tablet PO (08:29)
[2020-07-12] MEDS: allopurinol 100 mg Tablet PO (08:29)
[2020-07-12] MEDS: multivitamin therapeutic Tablet 1 TAB PO (08:29)
[2020-07-12] MEDS: lisinopril 20 mg Tablet 40 MG PO (08:29)
[2020-07-12] MEDS: amlodipine 10 mg Tablet PO (08:29)
[2020-07-12] MEDS: docusate sodium 100 mg Capsule PO ×2 (08:29→17:43)
[2020-07-12] MEDS: thiamine 100 mg Tablet PO (08:29)
[2020-07-12] MEDS: TRAMadol 50 mg Tablet PO ×2 (09:53→21:08)
[2020-07-12] MEDS: polyethylene glycol 3350 Pkt 17 gm PO (09:53)
--- NOTE | 2020-07-12 10:27 | PC.CHAP ---
Pastoral Care Encounter/Spiritual Assessment Type of Contact [] Declined on air personality visit [] Patient/Family/Request visit [] Outpatient visit [] Follow-up visit [] Physician referral [] Code/Alert [x] Routine visit [] Staff referral [] Actively dying [] Patient sleeping [] Family support [] [] Out of room [] Palliative care [] [x] Receiving care in room [] Pre-surgical visit [] Trauma [x] Long length of stay [] ICU visit [] Other: Relational/Emotional Strength [x] Patient feels connected with others/family/visitors/staff [] Distress [] Loneliness/isolation [] Abandonment Spirituality of Patient [x] Person of Arabella [] Attends Buddhism of their Arabella [x] Believes in Prayer [] Reads Bible or Orthodoxy materials [] There are Spiritual issues to be addressed Lining Maker Hand Interventions [x] Prayer [x] Active listening [x] Non-anxious presence [x] Spiritual/emotional support [] Crisis/trauma care [x] Spiritual counseling [] Bereavement support [] Provided bereavement packet [] Provided Bible/devotional materials [] Provided toy/stuffed animal, coloring book to patient or family member [] Provided Communion [] Anointing/[place] [] Salvation [x] Completed spiritual assessment [] Other: Impact on Illness or Injury [] Angry [] Fearful [x] Anxious [] Often cries [] Exhaustion [x] Unable to work [] Unable to attend holiness [] Unable to walk/stand [] Unable to read [] Unable to drive [] Unable to eat/drink [] Unable to sleep [] Unable to be with family [] Patient intubated [] Other: Summary Weakness in both legs, going into re`hab, feels good has a good attitude will need recovery time, still not sure of outcome or healing Time spent with patient 10 mins
--- NOTE | 2020-07-12 10:31 | PC.SOCIAL ---
IMM Updated. Updated pt on Pg 2 IMM. No questions voiced. Provided pt a copy. Signed, dated, & timed copy in chart.
[2020-07-12] MEDS: cefTRIAXone 1,000 MG in sodium chloride 0.9% (plus) 50 ML 100 MG IV (11:29)
[2020-07-12 11:42] LABS: Glucose Point of Care 128 mg/dL (70-110)
--- NOTE | 2020-07-12 12:06 | PM.PN ---
Subjective Subjective: Interval history: Patient was examined this morning, he tells me that he is still weak in his lower extremities, but he is improving, him and his daughter and case management are looking at different nursing homes that can take him, he is much more enthusiastic about getting better Vitals/I&O/Wt Last Vital Signs Temp 98.3 F 07/12/20 07:44 Pulse 80 07/12/20 08:01 Resp 18 07/12/20 08:01 BP 125/60 07/12/20 07:44 Pulse Ox 93 07/12/20 08:01 07/11/20 07/12/20 07/12/20 22:59 06:59 14:59 Intake Total 370 / 850 Output Total 1100 / 2075 100 / 2175 300 / 300 Balance -730 / -1225 -100 / -1325 -300 / -300 Weight last 48 hrs Weight 115.439 kg Weight 119.918 kg Physical Exam Const: COMMON NORMALS: no acute distress and patient oriented x3 Neck/C-Spine: COMMON NORMALS: no JVD Resp: COMMON NORMALS: normal respiratory effort, No retractions, No use of accessory muscles and clear to auscultation bilaterally AUSCULTATION: clear to auscultation bilaterally Cardio: COMMON NORMALS: no JVD, regular rate, regular rhythm, S1 normal heart sound present and S2 normal heart sound present RATE: regular rate RHYTHM: regular rhythm HEART SOUNDS: S1 normal heart sound present and S2 normal heart sound present GI: COMMON NORMALS: Normal to inspection, nondistended, normoactive bowel sounds present and no bruits Extremity: COMMON NORMALS: no clubbing, cyanosis or edema, no calf tenderness and no pedal edema Neuro: COMMON NORMALS: patient oriented x3 Psych: COMMON NORMALS: mental status grossly normal Urinary Catheter Management^: Harris: Cath Placed During This Visit: yes, but has since been removed by the nurse Reason for Continuing Indwelling Catheter: Accurate Measurement of Urinary Output in Critically Ill Patients Urinary Catheter Date of Insertion: 07/07/20 Urinary Catheter Time of Insertion: 16:35 Date Urinary Catheter Removed: 07/11/20 Time Urinary Catheter Discontinued: 19:11 Data : 07/12/20 05:52 07/12/20 05:52 Micro: Microbiology 07/09/20 13:08 Urine Culture - Final Urine Catheterized A&P Assessment and plan (1) Fall at home: I have recommended have recommended short-term rehab, for recurrent falls related to peripheral neuropathy related to alcohol consumption, lumbar spinal stenosis Status: Acute (2) Back pain: Has chronic lower back pain that is severe and limits his activities of daily living. Appears to have an acute component after fall -1. Mild lumbar curve. No acute compression. No high-grade central canal stenosis. 2. Mild central canal stenosis L4-L5 and L5-S1 due to disc osteophyte complexes. 3. Mild to moderate right L4-5 bony foraminal narrowing. 4. Severe bilateral L5-S1 bony foraminal narrowing. 5. Prominent anterior hypertrophic changes lower thoracic and lumbar spine. Status: Acute (3) Weakness: Status: Acute (4) Rhabdomyolysis: Either from fall or from tremors, currently with stable renal function Status: Acute (5) Altered mental status: According to the daughter, patient's mental status is not baseline. -CT of the head negative for acute stroke, negative for acute intracranial bleed -CT angiogram of the chest negative for pulmonary emboli, negative for pneumonia -UA negative for UTI -Arterial blood gas does not show significant hypercapnia -Does have chronic alcoholism, daily alcohol use, last use was the day of admission -Altered mental status likely secondary to alcohol withdrawal, component of Wernicke's Korsakoff syndrome -No episode of agitation in the last 24 in the last 24 hours no episodes of agitation, no Ativan required -With Ativan, patient became quite nonresponsive, has COPD, is AVAPS dependent, on 4 L, high risk of intubation, prefer Precedex Plan: -Moved down to ICU for Precedex drip -Ativan to be used sparingly - B12, folate, thiamine -Monitor closely for delirium tremens Status: Acute (6) Bilateral edema of lower extremity: In large part due to venous stasis as he almost never elevates his legs Echo shows an EF of 60%, no diagnostic regional wall motion abnormalities, abnormal septal motion, no has no chest pain complaints, will give 1 dose of Lasix with potassium today Status: Acute (7) D-dimer, elevated: Has risk factors for PE, chronically on oxygen. Has declined consideration for CTA of the chest unless he can be completely sedated due to back pain. Status: Acute (8) COPD (chronic obstructive pulmonary disease): Chronically on oxygen at 4 to 5 L Status: Acute (9) Sleep apnea: Uses AVAPS at night Status: Acute (10) Daily consumption of alcohol: Around the fifth of alcohol Status: Acute (11) BMI 39.0-39.9,adult: Status: Chronic (12) Wernicke encephalopathy syndrome: -Has ataxia, confusion episodes, likely related to Warnicke's encephalopathy -Has components of Korsakoff syndrome Status: Acute (13) Peripheral neuropathy: Likely related to alcohol consumption Status: Acute Additional A&P Information Elevated blood sugar without a history of diabetes, hemoglobin A1c 5.6 Obesity with a BMI of 39 Significant macrocytosis, attributed to chronic alcohol use Thrombocytopenia, likely related to chronic alcohol use, thus far stable on Lovenox, will do liver ultrasound Hematuria, felt secondary to Harris trauma, hold off on diuresis Hyperuricemia Sinus tachycardia which I suspect is his baseline due to his chronic respiratory status Finished Rocephin for UTI Discontinue Harris Monitor for increasing hematuria given use of prophylactic Lovenox Monitor for alcohol withdrawal, CIWA score Add allopurinol Start Ultram 50 mg every 6 hours as needed for pain Hold meloxicam Discontinue Flexeril in case this is what caused his mental status changes his daughter saw Ammonia level within normal limits Multivitamin, folate, thiamine, oral magnesium Venous Doppler of the lower extremities negative for DVT PT evaluation appreciated AVAPS during sleep Continue home oxygen Breathing treatments PPI Lovenox for DVT prophylaxis Patient considering long term placement Request records from [facility] Supportive care otherwise Full code Plan for today continue PT OT, monitor withdrawal, arranging for long term Attestations Medical Necessity Statement*: Patient requires hospitalization, for alcohol withdrawal, weakness, peripheral neuropathy, Wernicke's encephalopathy, arranging for long term placement Coding Level of Care Code Acute Product Specialist for Chg Fwd Diagnoses Fall at home W19.XXXA; Y92.009 Back pain M54.9 Weakness R53.1 Rhabdomyolysis M62.82 Altered mental status R41.82 Bilateral edema of lower extremity R60.0 D-dimer, elevated R79.89 COPD (chronic obstructive pulmonary disease) J44.9 Sleep apnea G47.30 Daily consumption of alcohol Z78.9 BMI 39.0-39.9,adult Z68.39 Wernicke encephalopathy syndrome E51.2 Peripheral neuropathy G62.9
[2020-07-12 17:20] LABS: Glucose Point of Care 125 mg/dL (70-110)
[2020-07-12] MEDS: trazodone 50 mg Tablet PO (17:43)
[2020-07-12 20:42] LABS: Glucose Point of Care 158 mg/dL (70-110)
[2020-07-13] VITALS (19 sets, daily range): BP systolic 109–165; BP diastolic 57–73; PULSE 68–95; RESP 15–23; TEMP 36.9–37.3; O2SAT 91–98
[2020-07-13] MEDS: enoxaparin 40 mg/0.4 mL Syringe SUBCUT (03:39)
[2020-07-13 05:50] LABS: Basophils # 0.1 10^3/uL (0.0-0.1); Basophils % 0.9 %; Eosinophils # 0.3 10^3/uL (0.0-0.8); Eosinophils % 4.9 %; Hematocrit 39.8 % (42.0-52.0); Hemoglobin 12.5 g/dL (11.7-16.6); Lymphocytes # 0.9 10^3/uL (0.8-4.8); Lymphocytes % 17.5 %; Mean Corpuscular HGB Conc 31.4 g/dL (30.0-36.0); Mean Corpuscular Hemoglobin 34.8 pg (28.0-34.0); Mean Corpuscular Volume 110.9 fL (80-94); Mean Platelet Volume 9.2 fL (7.4-10.4); Monocytes % 19.6 %; Neutrophils # 3.01 10^3/uL (1.8-7.7); Neutrophils % 56.7 %; Nucleated Red Blood Cells % 0 %; Platelet Count 167 10^3/cmm (130-400); Red Blood Count 3.59 10^6/uL (4.1-5.3); Red Cell Distribution Width 12.6 % (12.1-15.1); White Blood Count 5.3 10^3/uL (4.0-10.0)
[2020-07-13 06:04] LABS: Alanine Aminotransferase 14 U/L (0-41); Albumin Level 3.1 g/dL (3.5-5.2); Alkaline Phosphatase 40 IU/L (40-130); Anion Gap 11.8 (5-19); Aspartate Amino Transferase 20 U/L (0-40); Blood Urea Nitrogen 23 mg/dL (8-23); Calcium 8.8 mg/dL (8.5-10.5); Carbon Dioxide 29 mmol/L (22-29); Chloride 102 mmol/L (98-107); Globulin 3.1 g/dL (1.3-4.6); Glucose 119 mg/dL (65-115); Osmolality Calculated 293 mOsm/kg (285-295); Potassium 3.8 mmol/L (3.5-5.1); Sodium 139 mmol/L (136-145); Total Bilirubin 0.5 mg/dL (0.15-1.2); Total Protein 6.2 g/dL (6.6-8.7)
[2020-07-13 06:25] LABS: Glucose Point of Care 121 mg/dL (70-110)
[2020-07-13] MEDS: lisinopril 20 mg Tablet 40 MG PO (07:52)
[2020-07-13] MEDS: docusate sodium 100 mg Capsule PO ×2 (07:53→18:03)
[2020-07-13] MEDS: multivitamin therapeutic Tablet 1 TAB PO (07:53)
[2020-07-13] MEDS: amlodipine 10 mg Tablet PO (07:53)
[2020-07-13] MEDS: polyethylene glycol 3350 Pkt 17 gm PO (07:53)
[2020-07-13] MEDS: cetirizine 10 mg Tablet PO (07:53)
[2020-07-13] MEDS: thiamine 100 mg Tablet PO (07:53)
[2020-07-13] MEDS: folic acid 1 mg Tablet PO (07:53)
[2020-07-13] MEDS: allopurinol 100 mg Tablet PO (07:53)
[2020-07-13] MEDS: pantoprazole DR 40 mg Tablet PO (07:53)
[2020-07-13] MEDS: cyanocobalamin 1,000 mcg Tablet 1000 MCG PO (07:53)
[2020-07-13] MEDS: ipratropium-albuterol 3 mL Neb INHALATION ×4 (08:55→21:00)
--- NOTE | 2020-07-13 11:26 | PM.PN ---
Subjective Subjective: Interval history: Patient was seen this morning, he sitting up to the side of bed, trimming his mensah, tells me he is doing well, strength is improving, overall doing better Vitals/I&O/Wt Last Vital Signs Temp 98.7 F 07/13/20 08:39 Pulse 84 07/13/20 08:58 Resp 18 07/13/20 08:58 BP 117/73 07/13/20 08:39 Pulse Ox 93 07/13/20 08:58 07/12/20 07/13/20 07/13/20 22:59 06:59 14:59 Intake Total 540 / 1070 240 / 1310 120 / 120 Output Total 50 / 450 200 / 650 200 / 200 Balance 490 / 620 40 / 660 -80 / -80 Weight last 48 hrs Weight 116.8 kg Weight 115.439 kg Weight 115.439 kg Physical Exam Const: COMMON NORMALS: no acute distress and patient oriented x3 HENMT: COMMON NORMALS: normocephalic HEAD & SCALP: normocephalic Resp: COMMON NORMALS: normal respiratory effort, No retractions, No use of accessory muscles and clear to auscultation bilaterally AUSCULTATION: clear to auscultation bilaterally Cardio: COMMON NORMALS: regular rate, regular rhythm, S1 normal heart sound present and S2 normal heart sound present RATE: regular rate RHYTHM: regular rhythm HEART SOUNDS: S1 normal heart sound present and S2 normal heart sound present GI: COMMON NORMALS: Normal to inspection, nondistended, normoactive bowel sounds present Neuro: COMMON NORMALS: patient oriented x3 Psych: COMMON NORMALS: mental status grossly normal Urinary Catheter Management^: Harris: Cath Placed During This Visit: yes, but has since been removed by the nurse Reason for Continuing Indwelling Catheter: Accurate Measurement of Urinary Output in Critically Ill Patients Urinary Catheter Date of Insertion: 07/07/20 Urinary Catheter Time of Insertion: 16:35 Date Urinary Catheter Removed: 07/11/20 Time Urinary Catheter Discontinued: 19:11 Data : 07/13/20 05:34 07/13/20 05:34 Micro: Microbiology 07/07/20 16:51 Blood Culture - Final Blood NO GROWTH AFTER 5 DAYS 07/07/20 16:45 Blood Culture - Final Blood NO GROWTH AFTER 5 DAYS A&P Assessment and plan (1) Fall at home: I have recommended have recommended short-term rehab, for recurrent falls related to peripheral neuropathy related to alcohol consumption, lumbar spinal stenosis Status: Acute (2) Back pain: Has chronic lower back pain that is severe and limits his activities of daily living. Appears to have an acute component after fall -1. Mild lumbar curve. No acute compression. No high-grade central canal stenosis. 2. Mild central canal stenosis L4-L5 and L5-S1 due to disc osteophyte complexes. 3. Mild to moderate right L4-5 bony foraminal narrowing. 4. Severe bilateral L5-S1 bony foraminal narrowing. 5. Prominent anterior hypertrophic changes lower thoracic and lumbar spine. Status: Acute (3) Weakness: Status: Acute (4) Rhabdomyolysis: Either from fall or from tremors, currently with stable renal function Status: Acute (5) Altered mental status: According to the daughter, patient's mental status is not baseline. -CT of the head negative for acute stroke, negative for acute intracranial bleed -CT angiogram of the chest negative for pulmonary emboli, negative for pneumonia -UA negative for UTI -Arterial blood gas does not show significant hypercapnia -Does have chronic alcoholism, daily alcohol use, last use was the day of admission -Altered mental status likely secondary to alcohol withdrawal, component of Wernicke's Korsakoff syndrome -No episode of agitation in the last 24 in the last 24 hours no episodes of agitation, no Ativan required -With Ativan, patient became quite nonresponsive, has COPD, is AVAPS dependent, on 4 L, high risk of intubation, prefer Precedex Plan: -Moved down to ICU for Precedex drip -Ativan to be used sparingly - B12, folate, thiamine -Monitor closely for delirium tremens Status: Acute (6) Bilateral edema of lower extremity: In large part due to venous stasis as he almost never elevates his legs Echo shows an EF of 60%, no diagnostic regional wall motion abnormalities, abnormal septal motion, no has no chest pain complaints, will give 1 dose of Lasix with potassium today Status: Acute (7) D-dimer, elevated: Has risk factors for PE, chronically on oxygen. Has declined consideration for CTA of the chest unless he can be completely sedated due to back pain. Status: Acute (8) COPD (chronic obstructive pulmonary disease): Chronically on oxygen at 4 to 5 L Status: Acute (9) Sleep apnea: Uses AVAPS at night Status: Acute (10) Daily consumption of alcohol: Around the fifth of alcohol Status: Acute (11) BMI 39.0-39.9,adult: Status: Chronic (12) Wernicke encephalopathy syndrome: -Has ataxia, confusion episodes, likely related to Warnicke's encephalopathy -Has components of Korsakoff syndrome Status: Acute (13) Peripheral neuropathy: Likely related to alcohol consumption Status: Acute Additional A&P Information Elevated blood sugar without a history of diabetes, hemoglobin A1c 5.6 Obesity with a BMI of 39 Significant macrocytosis, attributed to chronic alcohol use Thrombocytopenia, likely related to chronic alcohol use, thus far stable on Lovenox, will do liver ultrasound Hematuria, felt secondary to Harris trauma, hold off on diuresis Hyperuricemia Sinus tachycardia resolved, Finished Rocephin for UTI Out of alcohol withdrawal window Add allopurinol Start Ultram 50 mg every 6 hours as needed for pain Hold meloxicam Discontinue Flexeril in case this is what caused his mental status changes his daughter saw Ammonia level within normal limits Multivitamin, folate, thiamine, oral magnesium Venous Doppler of the lower extremities negative for DVT PT OT AVAPS during sleep Continue home oxygen Breathing treatments PPI Lovenox for DVT prophylaxis Patient considering long-term placement Request records from [facility] Supportive care otherwise Full code Plan for today continue PT OT, arranging for long-term Attestations Medical Necessity Statement*: Patient requires hospitalization for fall, alcohol withdrawal, Wernicke's encephalopathy, Coding Level of Care Code Acute Manager Labor Relations for g Fwd Diagnoses Fall at home W19.XXXA; Y92.009 Back pain M54.9 Weakness R53.1 Rhabdomyolysis M62.82 Altered mental status R41.82 Bilateral edema of lower extremity R60.0 D-dimer, elevated R79.89 COPD (chronic obstructive pulmonary disease) J44.9 Sleep apnea G47.30 Daily consumption of alcohol Z78.9 BMI 39.0-39.9,adult Z68.39 Wernicke encephalopathy syndrome E51.2 Peripheral neuropathy G62.9
[2020-07-13 12:18] LABS: Glucose Point of Care 123 mg/dL (70-110)
[2020-07-13 17:37] LABS: Glucose Point of Care 131 mg/dL (70-110)
[2020-07-13] MEDS: trazodone 50 mg Tablet PO (18:03)
[2020-07-13 20:54] LABS: Glucose Point of Care 142 mg/dL (70-110)
[2020-07-13] MEDS: TRAMadol 50 mg Tablet PO (21:10)
[2020-07-14] VITALS (20 sets, daily range): BP systolic 105–143; BP diastolic 55–77; PULSE 71–136; RESP 16–20; TEMP 36.8–37.7; O2SAT 92–99
[2020-07-14] MEDS: enoxaparin 40 mg/0.4 mL Syringe SUBCUT (03:36)
--- NOTE | 2020-07-14 04:54 | PC.NURSE ---
shift summary Patient has had a good night. Did complain of some pain in his back, which was relieved with medication and setting up on the side of bed.
[2020-07-14 06:23] LABS: Glucose Point of Care 125 mg/dL (70-110)
[2020-07-14 06:58] LABS: Basophils # 0.1 10^3/uL (0.0-0.1); Basophils % 1.2 %; Eosinophils # 0.2 10^3/uL (0.0-0.8); Eosinophils % 4.3 %; Hematocrit 39.3 % (42.0-52.0); Hemoglobin 12.4 g/dL (11.7-16.6); Lymphocytes # 0.9 10^3/uL (0.8-4.8); Lymphocytes % 18.5 %; Mean Corpuscular HGB Conc 31.6 g/dL (30.0-36.0); Mean Corpuscular Hemoglobin 34.6 pg (28.0-34.0); Mean Corpuscular Volume 109.8 fL (80-94); Mean Platelet Volume 9.3 fL (7.4-10.4); Monocytes # 1.1 10^3/uL (0.2-0.9); Monocytes % 21.7 %; Neutrophils # 2.66 10^3/uL (1.8-7.7); Neutrophils % 53.9 %; Nucleated Red Blood Cells % 0 %; Platelet Count 197 10^3/cmm (130-400); Red Blood Count 3.58 10^6/uL (4.1-5.3); Red Cell Distribution Width 12.4 % (12.1-15.1); White Blood Count 4.9 10^3/uL (4.0-10.0)
[2020-07-14] MEDS: ipratropium-albuterol 3 mL Neb INHALATION ×4 (07:38→20:26)
[2020-07-14 07:48] LABS: Alanine Aminotransferase 18 U/L (0-41); Albumin Level 3.3 g/dL (3.5-5.2); Alkaline Phosphatase 42 IU/L (40-130); Aspartate Amino Transferase 24 U/L (0-40); Blood Urea Nitrogen 21 mg/dL (8-23); Calcium 9.1 mg/dL (8.5-10.5); Carbon Dioxide 28 mmol/L (22-29); Chloride 103 mmol/L (98-107); Globulin 2.7 g/dL (1.3-4.6); Glucose 114 mg/dL (65-115); Osmolality Calculated 296 mOsm/kg (285-295); Sodium 141 mmol/L (136-145); Total Bilirubin 0.7 mg/dL (0.15-1.2)
[2020-07-14 08:09] LABS: Anion Gap 14.3 (5-19); Potassium 4.3 mmol/L (3.5-5.1)
[2020-07-14] MEDS: cetirizine 10 mg Tablet PO (08:39)
[2020-07-14] MEDS: thiamine 100 mg Tablet PO (08:39)
[2020-07-14] MEDS: multivitamin therapeutic Tablet 1 TAB PO (08:39)
[2020-07-14] MEDS: docusate sodium 100 mg Capsule PO ×2 (08:39→17:38)
[2020-07-14] MEDS: allopurinol 100 mg Tablet PO (08:39)
[2020-07-14] MEDS: folic acid 1 mg Tablet PO (08:39)
[2020-07-14] MEDS: cyanocobalamin 1,000 mcg Tablet 1000 MCG PO (08:39)
[2020-07-14] MEDS: pantoprazole DR 40 mg Tablet PO (08:39)
[2020-07-14] MEDS: lisinopril 20 mg Tablet 40 MG PO (08:40)
[2020-07-14] MEDS: amlodipine 10 mg Tablet PO (08:40)
--- NOTE | 2020-07-14 09:26 | PC.SOCIAL ---
IMM Updated. Updated pt on Pg 2 IMM. No questions voiced. Provided pt a copy. Signed, dated, & timed copy in chart.
[2020-07-14 11:12] LABS: Glucose Point of Care 116 mg/dL (70-110)
[2020-07-14] MEDS: FUROsemide 10 mg/mL SDV 4mL 40 MG IVP ×2 (11:26→21:16)
[2020-07-14] MEDS: doxycycline 100 mg Tablet PO ×2 (11:26→17:37)
--- NOTE | 2020-07-14 11:55 | PM.PN ---
Subjective Subjective: Interval history: Patient was examined this morning, he sitting up to the side of bed, working with physical therapy, he tells me that his strength is getting better, does have lower extremity edema today, no other complaints, he is awaiting for placement at [facility] Vitals/I&O/Wt Last Vital Signs Temp 98.5 F 07/14/20 07:54 Pulse 75 07/14/20 11:45 Resp 18 07/14/20 11:45 BP 116/68 07/14/20 07:54 Pulse Ox 95 07/14/20 11:45 07/13/20 07/14/20 07/14/20 22:59 06:59 14:59 Intake Total 240 / 540 240 / 240 Output Total 450 / 650 200 / 850 Balance -210 / -110 -200 / -310 240 / 240 Weight last 48 hrs Weight 115.167 kg Weight 116.8 kg Weight 115.439 kg Physical Exam Narrative: EXAM NARRATIVE: Has acne rosacea Const: COMMON NORMALS: no acute distress and patient oriented x3 Resp: COMMON NORMALS: normal respiratory effort, No retractions, No use of accessory muscles and clear to auscultation bilaterally AUSCULTATION: clear to auscultation bilaterally Cardio: COMMON NORMALS: regular rate, regular rhythm, S1 normal heart sound present and S2 normal heart sound present RATE: regular rate RHYTHM: regular rhythm HEART SOUNDS: S1 normal heart sound present and S2 normal heart sound present GI: COMMON NORMALS: Normal to inspection, nondistended, normoactive bowel sounds present and Soft to palpation PALPATION: Yes Soft to palpation Extremity: COMMON NORMALS: no pedal edema Neuro: COMMON NORMALS: patient oriented x3 Psych: COMMON NORMALS: mental status grossly normal Skin: OTHER: 2+ pitting edema bilaterally 2+ pitting edema bilaterally Urinary Catheter Management^: Harris: Cath Placed During This Visit: yes, but has since been removed by the nurse Reason for Continuing Indwelling Catheter: Accurate Measurement of Urinary Output in Critically Ill Patients Urinary Catheter Date of Insertion: 07/07/20 Urinary Catheter Time of Insertion: 16:35 Date Urinary Catheter Removed: 07/11/20 Time Urinary Catheter Discontinued: 19:11 Data : 07/14/20 06:43 07/14/20 06:43 A&P Assessment and plan (1) Fall at home: I have recommended have recommended short-term rehab, for recurrent falls related to peripheral neuropathy related to alcohol consumption, lumbar spinal stenosis Status: Acute (2) Back pain: Has chronic lower back pain that is severe and limits his activities of daily living. Appears to have an acute component after fall -1. Mild lumbar curve. No acute compression. No high-grade central canal stenosis. 2. Mild central canal stenosis L4-L5 and L5-S1 due to disc osteophyte complexes. 3. Mild to moderate right L4-5 bony foraminal narrowing. 4. Severe bilateral L5-S1 bony foraminal narrowing. 5. Prominent anterior hypertrophic changes lower thoracic and lumbar spine. Status: Acute (3) Weakness: Status: Acute (4) Rhabdomyolysis: Either from fall or from tremors, currently with stable renal function Status: Acute (5) Altered mental status: According to the daughter, patient's mental status is not baseline. -CT of the head negative for acute stroke, negative for acute intracranial bleed -CT angiogram of the chest negative for pulmonary emboli, negative for pneumonia -UA negative for UTI -Arterial blood gas does not show significant hypercapnia -Does have chronic alcoholism, daily alcohol use, last use was the day of admission -Altered mental status likely secondary to alcohol withdrawal, component of Wernicke's Korsakoff syndrome -No episode of agitation in the last 24 in the last 24 hours no episodes of agitation, no Ativan required -With Ativan, patient became quite nonresponsive, has COPD, is AVAPS dependent, on 4 L, high risk of intubation, prefer Precedex Plan: -Moved down to ICU for Precedex drip -Ativan to be used sparingly - B12, folate, thiamine -Monitor closely for delirium tremens Status: Acute (6) Bilateral edema of lower extremity: In large part due to venous stasis as he almost never elevates his legs Echo shows an EF of 60%, no diagnostic regional wall motion abnormalities, abnormal septal motion, no has no chest pain complaints, Lasix 40 IV twice daily Status: Acute (7) D-dimer, elevated: Has risk factors for PE, chronically on oxygen. Has declined consideration for CTA of the chest unless he can be completely sedated due to back pain. Status: Acute (8) COPD (chronic obstructive pulmonary disease): Chronically on oxygen at 4 to 5 L Status: Acute (9) Sleep apnea: Uses AVAPS at night Status: Acute (10) Daily consumption of alcohol: Around the fifth of alcohol Status: Acute (11) BMI 39.0-39.9,adult: Status: Chronic (12) Wernicke encephalopathy syndrome: -Has ataxia, confusion episodes, likely related to Warnicke's encephalopathy -Has components of Korsakoff syndrome Status: Acute (13) Peripheral neuropathy: Likely related to alcohol consumption Status: Acute Additional A&P Information Elevated blood sugar without a history of diabetes, hemoglobin A1c 5.6 Obesity with a BMI of 39 Significant macrocytosis, attributed to chronic alcohol use Thrombocytopenia, likely related to chronic alcohol use, thus far stable on Lovenox, will do liver ultrasound Hematuria, felt secondary to Harris trauma, hold off on diuresis Hyperuricemia Sinus tachycardia resolved, Finished Rocephin for UTI Out of alcohol withdrawal window Add allopurinol Start Ultram 50 mg every 6 hours as needed for pain Hold meloxicam Discontinue Flexeril in case this is what caused his mental status changes his daughter saw Ammonia level within normal limits Multivitamin, folate, thiamine, oral magnesium Venous Doppler of the lower extremities negative for DVT PT OT AVAPS during sleep Continue home oxygen Breathing treatments PPI Lovenox for DVT prophylaxis Patient considering senior living placement Request records from [facility] Supportive care otherwise Full code Plan for today continue PT OT, arranging for senior living, start doxycycline, lasix 40mg IV BID Attestations Medical Necessity Statement*: Patient requires hospitalization for patient requires hospitalization for, fluid overload, back pain, weakness, Wernicke's encephalopathy Coding Level of Care Code Acute Heat And Frost Insulator for Chg Fwd Diagnoses Fall at home W19.XXXA; Y92.009 Back pain M54.9 Weakness R53.1 Rhabdomyolysis M62.82 Altered mental status R41.82 Bilateral edema of lower extremity R60.0 D-dimer, elevated R79.89 COPD (chronic obstructive pulmonary disease) J44.9 Sleep apnea G47.30 Daily consumption of alcohol Z78.9 BMI 39.0-39.9,adult Z68.39 Wernicke encephalopathy syndrome E51.2 Peripheral neuropathy G62.9
[2020-07-14 20:08] LABS: Glucose Point of Care 195 mg/dL (70-110)
[2020-07-14] MEDS: trazodone 50 mg Tablet PO (21:16)
[2020-07-14] MEDS: TRAMadol 50 mg Tablet PO (21:16)
[2020-07-15] VITALS (19 sets, daily range): BP systolic 103–119; BP diastolic 56–69; PULSE 68–100; RESP 14–19; TEMP 37.1–37.5; O2SAT 93–98
[2020-07-15] MEDS: enoxaparin 40 mg/0.4 mL Syringe SUBCUT (02:45)
--- NOTE | 2020-07-15 05:28 | PC.NURSE ---
shift summary Patient slept all night. No complaints of pain.
[2020-07-15 06:00] LABS: Basophils # 0.1 10^3/uL (0.0-0.1); Basophils % 1.5 %; Eosinophils # 0.2 10^3/uL (0.0-0.8); Eosinophils % 3.4 %; Hematocrit 39.9 % (42.0-52.0); Hemoglobin 12.4 g/dL (11.7-16.6); Lymphocytes # 0.9 10^3/uL (0.8-4.8); Mean Corpuscular HGB Conc 31.1 g/dL (30.0-36.0); Mean Corpuscular Hemoglobin 33.8 pg (28.0-34.0); Mean Corpuscular Volume 108.7 fL (80-94); Mean Platelet Volume 9.6 fL (7.4-10.4); Monocytes # 1.1 10^3/uL (0.2-0.9); Monocytes % 20.7 %; Neutrophils # 3.18 10^3/uL (1.8-7.7); Neutrophils % 57.7 %; Nucleated Red Blood Cells % 0 %; Platelet Count 243 10^3/cmm (130-400); Red Blood Count 3.67 10^6/uL (4.1-5.3); Red Cell Distribution Width 12.4 % (12.1-15.1); White Blood Count 5.5 10^3/uL (4.0-10.0)
[2020-07-15 06:05] LABS: Glucose Point of Care 129 mg/dL (70-110)
[2020-07-15 06:24] LABS: Alanine Aminotransferase 21 U/L (0-41); Albumin Level 3.3 g/dL (3.5-5.2); Alkaline Phosphatase 45 IU/L (40-130); Anion Gap 13.8 (5-19); Aspartate Amino Transferase 24 U/L (0-40); Blood Urea Nitrogen 21 mg/dL (8-23); Calcium 8.9 mg/dL (8.5-10.5); Carbon Dioxide 28 mmol/L (22-29); Chloride 102 mmol/L (98-107); Globulin 2.9 g/dL (1.3-4.6); Glucose 127 mg/dL (65-115); Osmolality Calculated 295 mOsm/kg (285-295); Potassium 3.8 mmol/L (3.5-5.1); Sodium 140 mmol/L (136-145); Total Bilirubin 0.6 mg/dL (0.15-1.2); Total Protein 6.2 g/dL (6.6-8.7)
[2020-07-15] MEDS: ipratropium-albuterol 3 mL Neb INHALATION ×4 (08:25→20:10)
[2020-07-15] MEDS: thiamine 100 mg Tablet PO (08:37)
[2020-07-15] MEDS: doxycycline 100 mg Tablet PO ×2 (08:37→18:08)
[2020-07-15] MEDS: cetirizine 10 mg Tablet PO (08:37)
[2020-07-15] MEDS: folic acid 1 mg Tablet PO (08:37)
[2020-07-15] MEDS: allopurinol 100 mg Tablet PO (08:37)
[2020-07-15] MEDS: cyanocobalamin 1,000 mcg Tablet 1000 MCG PO (08:37)
[2020-07-15] MEDS: docusate sodium 100 mg Capsule PO ×2 (08:37→18:09)
[2020-07-15] MEDS: lisinopril 20 mg Tablet 40 MG PO (08:37)
[2020-07-15] MEDS: amlodipine 10 mg Tablet PO (08:38)
[2020-07-15] MEDS: pantoprazole DR 40 mg Tablet PO (08:38)
[2020-07-15] MEDS: multivitamin therapeutic Tablet 1 TAB PO (08:38)
--- NOTE | 2020-07-15 11:02 | P.PN_ITS ---
Subjective Subjective: Interval history: Patient was seen this morning, he is sitting up to the side of the bed, his sitting in a chair, tells me that he is doing well today, he does have bilateral extremity edema, no shortness of breath, is wondering what time he will find out if he has been accepted at [facility] Vitals/I&O/Wt Last Vital Signs Temp 98.9 F 07/15/20 07:50 Pulse 94 07/15/20 08:33 Resp 18 07/15/20 08:26 BP 113/69 07/15/20 07:50 Pulse Ox 93 07/15/20 08:26 07/14/20 07/15/20 07/15/20 22:59 06:59 14:59 Intake Total 360 / 840 120 / 120 Output Total 625 / 1425 375 / 1800 Balance -265 / -585 -375 / -960 120 / 120 Weight last 48 hrs Weight 114.623 kg Weight 115.167 kg Physical Exam Narrative: EXAM NARRATIVE: Has acne rosacea Const: COMMON NORMALS: no acute distress, patient oriented x3 and alert Resp: COMMON NORMALS: normal respiratory effort, No retractions, No use of accessory muscles and clear to auscultation bilaterally AUSCULTATION: clear to auscultation bilaterally Cardio: COMMON NORMALS: regular rate, regular rhythm, S1 normal heart sound present, S2 normal heart sound present and No murmurs present (Cardio) RATE: regular rate RHYTHM: regular rhythm HEART SOUNDS: S1 normal heart sound present and S2 normal heart sound present GI: COMMON NORMALS: Normal to inspection, nondistended, normoactive bowel sounds present, Soft to palpation, non-tender and no bruits INSPECTION: Yes abdominal distension PALPATION: Yes Soft to palpation OTHER: Abdomen distended, surgical scar, Extremity: OTHER: 2+ pitting edema Neuro: COMMON NORMALS: patient oriented x3 SENSORIUM/ORIENTATION: Yes alert Psych: COMMON NORMALS: mental status grossly normal Urinary Catheter Management^: Harris: Cath Placed During This Visit: yes, but has since been removed by the nurse Reason for Continuing Indwelling Catheter: Accurate Measurement of Urinary Output in Critically Ill Patients Urinary Catheter Date of Insertion: 07/07/20 Urinary Catheter Time of Insertion: 16:35 Date Urinary Catheter Removed: 07/11/20 Time Urinary Catheter Discontinued: 19:11 Data : 07/15/20 05:20 07/15/20 05:20 Micro: Microbiology 07/09/20 13:38 Blood Culture - Final Blood NO GROWTH AFTER 5 DAYS 07/09/20 13:38 Blood Culture - Final Blood NO GROWTH AFTER 5 DAYS A&P Assessment and plan (1) Fall at home: I have recommended have recommended short-term rehab, for recurrent falls related to peripheral neuropathy related to alcohol consumption, lumbar spinal stenosis Status: Acute (2) Back pain: Has chronic lower back pain that is severe and limits his activities of [facility]. Appears to have an acute component after fall -1. Mild lumbar curve. No acute compression. No high-grade central canal stenosis. 2. Mild central canal stenosis L4-L5 and L5-S1 due to disc osteophyte complexes. 3. Mild to moderate right L4-5 bony foraminal narrowing. 4. Severe bilateral L5-S1 bony foraminal narrowing. 5. Prominent anterior hypertrophic changes lower thoracic and lumbar spine. Status: Acute (3) Weakness: Status: Acute (4) Rhabdomyolysis: Either from fall or from tremors, currently with stable renal function Status: Acute (5) Altered mental status: Resolved According to the daughter, patient's mental status is not baseline. -CT of the head negative for acute stroke, negative for acute intracranial bleed -CT angiogram of the chest negative for pulmonary emboli, negative for pneumonia -UA negative for UTI -Arterial blood gas does not show significant hypercapnia -Does have chronic alcoholism, daily alcohol use, last use was the day of admiss ion -Altered mental status likely secondary to alcohol withdrawal, component of Wernicke's Korsakoff syndrome -No episode of agitation in the last 96 hours -Alert oriented x3 Plan: - B12, folate, thiamine Status: Acute (6) Bilateral edema of lower extremity: In large part due to venous stasis as he almost never elevates his legs Echo shows an EF of 60%, no diagnostic regional wall motion abnormalities, abnormal septal motion, no has no chest pain complaints, Lasix 40 IV twice daily for 1 day, potassium placement Status: Acute (7) D-dimer, elevated: Has risk factors for PE, chronically on oxygen. Has declined considerat ion for CTA of the chest unless he can be completely sedated due to back pain. Status: Acute (8) COPD (chronic obstructive pulmonary disease): Chronically on oxygen at 4 to 5 L, currently on room air Status: Acute (9) Sleep apnea: Uses AVAPS at night Status: Acute (10) Daily consumption of alcohol: Around the fifth of alcohol Status: Acute (11) BMI 39.0-39.9,adult: Status: Chronic (12) Wernicke encephalopathy syndrome: -Has ataxia, confusion episodes, likely related to Warnicke's encephalopathy -Has components of Korsakoff syndrome Status: Acute (13) Peripheral neuropathy: Likely related to alcohol consumption Status: Acute Additional A&P Information Elevated blood sugar without a history of diabetes, hemoglobin A1c 5.6 Obesity with a BMI of 39 Significant macrocytosis, attributed to chronic alcohol use Thrombocytopenia, likely related to chronic alcohol use, thus far stable on Lovenox, will do liver ultrasound Hyperuricemia Sinus tachycardia resolved, Finished Rocephin for UTI Out of alcohol withdrawal window Continue allopurinol Start Ultram 50 mg every 6 hours as needed for pain Hold meloxicam Discontinue Flexeril in case this is what caused his mental status changes his daughter saw Ammonia level within normal limits Multivitamin, folate, thiamine, oral magnesium Venous Doppler of the lower extremities negative for DVT PT OT AVAPS during sleep Continue home oxygen Breathing treatments PPI Lovenox for DVT prophylaxis Awaiting placement to [facility] Request records from [facility] Supportive care otherwise Full code Plan for today continue PT OT, arranging for jail, give 2 doses of Lasix Attestations Medical Necessity Statement*: Patient requires hospitalization for alcohol withdrawal, deconditioning, peripheral neuropathy, Wernicke's encephalopathy, fluid overload Coding Level of Care Code Acute Closing Agent for Chg Fwd Diagnoses Fall at home W19.XXXA; Y92.009 Back pain M54.9 Weakness R53.1 Rhabdomyolysis M62.82 Altered mental status R41.82 Bilateral edema of lower extremity R60.0 D-dimer, elevated R79.89 COPD (chronic obstructive pulmonary disease) J44.9 Sleep apnea G47.30 Daily consumption of alcohol Z78.9 BMI 39.0-39.9,adult Z68.39 Wernicke encephalopathy syndrome E51.2 Peripheral neuropathy G62.9
[2020-07-15 11:15] LABS: Glucose Point of Care 182 mg/dL (70-110)
[2020-07-15] MEDS: potassium chloride ER 20 mEq Tablet 40 MEQ PO (13:16)
[2020-07-15] MEDS: FUROsemide 10 mg/mL SDV 4mL 40 MG IVP ×2 (13:16→23:49)
[2020-07-15] MEDS: trazodone 50 mg Tablet PO (20:31)
[2020-07-15 20:33] LABS: Glucose Point of Care 163 mg/dL (70-110)
[2020-07-15] MEDS: TRAMadol 50 mg Tablet PO (20:33)
[2020-07-16] VITALS (18 sets, daily range): BP systolic 101–114; BP diastolic 49–68; PULSE 71–96; RESP 16–24; TEMP 36.6–37.2; O2SAT 91–98
[2020-07-16] MEDS: enoxaparin 40 mg/0.4 mL Syringe SUBCUT (02:56)
[2020-07-16 05:02] LABS: Basophils # 0.1 10^3/uL (0.0-0.1); Basophils % 1.3 %; Eosinophils # 0.2 10^3/uL (0.0-0.8); Eosinophils % 3.8 %; Hematocrit 38.5 % (42.0-52.0); Hemoglobin 12.2 g/dL (11.7-16.6); Lymphocytes % 17.5 %; Mean Corpuscular HGB Conc 31.7 g/dL (30.0-36.0); Mean Corpuscular Hemoglobin 34.6 pg (28.0-34.0); Mean Corpuscular Volume 109.1 fL (80-94); Mean Platelet Volume 9.6 fL (7.4-10.4); Monocytes # 1.1 10^3/uL (0.2-0.9); Monocytes % 19.1 %; Neutrophils # 3.18 10^3/uL (1.8-7.7); Neutrophils % 57.8 %; Nucleated Red Blood Cells % 0 %; Platelet Count 283 10^3/cmm (130-400); Red Blood Count 3.53 10^6/uL (4.1-5.3); Red Cell Distribution Width 12.6 % (12.1-15.1); White Blood Count 5.5 10^3/uL (4.0-10.0)
[2020-07-16 05:18] LABS: Alanine Aminotransferase 20 U/L (0-41); Albumin Level 3.4 g/dL (3.5-5.2); Alkaline Phosphatase 51 IU/L (40-130); Anion Gap 11.9 (5-19); Aspartate Amino Transferase 26 U/L (0-40); Blood Urea Nitrogen 24 mg/dL (8-23); Calcium 8.7 mg/dL (8.5-10.5); Carbon Dioxide 28 mmol/L (22-29); Chloride 104 mmol/L (98-107); Globulin 2.9 g/dL (1.3-4.6); Glucose 144 mg/dL (65-115); Magnesium 1.9 mg/dL (1.7-2.3); Osmolality Calculated 297 mOsm/kg (285-295); Potassium 3.9 mmol/L (3.5-5.1); Sodium 140 mmol/L (136-145); Total Bilirubin 0.5 mg/dL (0.15-1.2); Total Protein 6.3 g/dL (6.6-8.7)
[2020-07-16 06:43] LABS: Glucose Point of Care 135 mg/dL (70-110)
[2020-07-16] MEDS: ipratropium-albuterol 3 mL Neb INHALATION ×4 (08:11→20:16)
[2020-07-16] MEDS: folic acid 1 mg Tablet PO (09:01)
[2020-07-16] MEDS: docusate sodium 100 mg Capsule PO ×2 (09:01→17:58)
[2020-07-16] MEDS: doxycycline 100 mg Tablet PO ×2 (09:01→17:58)
[2020-07-16] MEDS: multivitamin therapeutic Tablet 1 TAB PO (09:01)
[2020-07-16] MEDS: cyanocobalamin 1,000 mcg Tablet 1000 MCG PO (09:01)
[2020-07-16] MEDS: allopurinol 100 mg Tablet PO (09:01)
[2020-07-16] MEDS: cetirizine 10 mg Tablet PO (09:08)
[2020-07-16] MEDS: lisinopril 20 mg Tablet 40 MG PO (09:17)
[2020-07-16] MEDS: amlodipine 10 mg Tablet PO (09:17)
[2020-07-16] MEDS: thiamine 100 mg Tablet PO (09:17)
[2020-07-16] MEDS: pantoprazole DR 40 mg Tablet PO (09:18)
[2020-07-16] MEDS: polyethylene glycol 3350 Pkt 17 gm PO (09:18)
[2020-07-16 11:00] LABS: Glucose Point of Care 170 mg/dL (70-110)
--- NOTE | 2020-07-16 11:42 | PC.SOCIAL ---
*IMM UPDATE* Gave patient IMM update. Provided copy of pg 2 of IMM. Verbalized understanding 07/16/20 @ 0912 Initialed, dated, timed and placed in chart.
--- NOTE | 2020-07-16 15:52 | PM.PN ---
Subjective Subjective: Interval history: no acute events awaiting placment Vitals/I&O/Wt Last Vital Signs Temp 98.3 F 07/16/20 15:48 Pulse 96 07/16/20 15:48 Resp 18 07/16/20 15:48 BP 108/57 07/16/20 15:48 Pulse Ox 95 07/16/20 15:48 07/16/20 07/16/20 07/16/20 06:59 14:59 22:59 Intake Total 1720 / 1720 Output Total 425 / 1375 700 / 700 Balance -425 / -895 1020 / 1020 Weight last 48 hrs Weight 251 lb 9.6 oz Weight 252 lb 11.2 oz Physical Exam Const: COMMON NORMALS: no acute distress and patient oriented x3 Resp: COMMON NORMALS: normal respiratory effort Cardio: COMMON NORMALS: regular rate and regular rhythm RATE: regular rate RHYTHM: regular rhythm GI: COMMON NORMALS: Normal to inspection, nondistended, normoactive bowel sounds present, Soft to palpation and non-tender PALPATION: Yes Soft to palpation Neuro: COMMON NORMALS: patient oriented x3 and CN's II-XII intact bilaterally Psych: COMMON NORMALS: Normal thought process present and cooperative THOUGHT PROCESS: Normal thought process present Urinary Catheter Management^: Harris: Cath Placed During This Visit: yes, but has since been removed by the nurse Reason for Continuing Indwelling Catheter: Accurate Measurement of Urinary Output in Critically Ill Patients Urinary Catheter Date of Insertion: 07/07/20 Urinary Catheter Time of Insertion: 16:35 Date Urinary Catheter Removed: 07/11/20 Time Urinary Catheter Discontinued: 19:11 Data : 07/17/20 05:54 07/17/20 05:54 A&P Assessment and plan (1) Fall at home: Status: Acute (2) Back pain: Status: Acute (3) Rhabdomyolysis: Status: Acute (4) Peripheral neuropathy: Status: Acute Additional A&P Information elevated blood sugar without a history of diabetes, hemoglobin A1c 5.6 Obesity with a BMI of 39 Significant macrocytosis, attributed to chronic alcohol use Thrombocytopenia, likely related to chronic alcohol use, thus far stable on Lovenox, will do liver ultrasound Hyperuricemia Sinus tachycardia resolved, Finished Rocephin for UTI Out of alcohol withdrawal window-continue vitains Supportive care otherwise Full code Attestations Medical Necessity Statement*: Arabella Lutz's hospital stay will require greater than 2 midnights for weakness Coding Level of Care Code Acute Machine Setup Operator for Chg Fwd Diagnoses Fall at home W19.XXXA; Y92.009 Back pain M54.9 Rhabdomyolysis M62.82 Peripheral neuropathy G62.9
[2020-07-16 17:20] LABS: Glucose Point of Care 177 mg/dL (70-110)
[2020-07-16 20:24] LABS: Glucose Point of Care 178 mg/dL (70-110)
[2020-07-16] MEDS: trazodone 50 mg Tablet PO (20:30)
[2020-07-17] VITALS (10 sets, daily range): BP systolic 102–133; BP diastolic 56–71; PULSE 79–93; RESP 16–27; TEMP 36.7–37.1; O2SAT 91–98
[2020-07-17] MEDS: enoxaparin 40 mg/0.4 mL Syringe SUBCUT (03:45)
[2020-07-17 06:02] LABS: Basophils # 0.1 10^3/uL (0.0-0.1); Basophils % 1.4 %; Eosinophils # 0.2 10^3/uL (0.0-0.8); Eosinophils % 3.4 %; Hematocrit 39.4 % (42.0-52.0); Hemoglobin 12.5 g/dL (11.7-16.6); Lymphocytes % 16.8 %; Mean Corpuscular HGB Conc 31.7 g/dL (30.0-36.0); Mean Corpuscular Hemoglobin 34.5 pg (28.0-34.0); Mean Corpuscular Volume 108.8 fL (80-94); Mean Platelet Volume 9.6 fL (7.4-10.4); Monocytes # 0.9 10^3/uL (0.2-0.9); Monocytes % 16.1 %; Neutrophils # 3.61 10^3/uL (1.8-7.7); Neutrophils % 61.8 %; Nucleated Red Blood Cells % 0 %; Platelet Count 294 10^3/cmm (130-400); Red Blood Count 3.62 10^6/uL (4.1-5.3); Red Cell Distribution Width 12.4 % (12.1-15.1); White Blood Count 5.8 10^3/uL (4.0-10.0)
[2020-07-17 06:26] LABS: Alanine Aminotransferase 22 U/L (0-41); Albumin Level 3.3 g/dL (3.5-5.2); Alkaline Phosphatase 48 IU/L (40-130); Anion Gap 14.1 (5-19); Aspartate Amino Transferase 21 U/L (0-40); Blood Urea Nitrogen 21 mg/dL (8-23); Calcium 8.9 mg/dL (8.5-10.5); Carbon Dioxide 27 mmol/L (22-29); Chloride 103 mmol/L (98-107); Globulin 2.7 g/dL (1.3-4.6); Glucose 133 mg/dL (65-115); Magnesium 1.8 mg/dL (1.7-2.3); Osmolality Calculated 295 mOsm/kg (285-295); Potassium 4.1 mmol/L (3.5-5.1); Sodium 140 mmol/L (136-145); Total Bilirubin 0.4 mg/dL (0.15-1.2)
[2020-07-17 06:39] LABS: Glucose Point of Care 135 mg/dL (70-110)
[2020-07-17] MEDS: ipratropium-albuterol 3 mL Neb INHALATION (08:06)
[2020-07-17] MEDS: allopurinol 100 mg Tablet PO (08:17)
[2020-07-17] MEDS: doxycycline 100 mg Tablet PO (08:17)
[2020-07-17] MEDS: cyanocobalamin 1,000 mcg Tablet 1000 MCG PO (08:17)
[2020-07-17] MEDS: lisinopril 20 mg Tablet 40 MG PO (08:18)
[2020-07-17] MEDS: folic acid 1 mg Tablet PO (08:18)
[2020-07-17] MEDS: amlodipine 10 mg Tablet PO (08:18)
[2020-07-17] MEDS: thiamine 100 mg Tablet PO (08:18)
[2020-07-17] MEDS: docusate sodium 100 mg Capsule PO (08:18)
[2020-07-17] MEDS: cetirizine 10 mg Tablet PO (08:18)
[2020-07-17] MEDS: multivitamin therapeutic Tablet 1 TAB PO (08:18)
[2020-07-17] MEDS: pantoprazole DR 40 mg Tablet PO (08:18)
--- NOTE | 2020-07-17 11:38 | P.DS_ITS ---
Discharge Providers Date of Admission: 07/07/20 00:53 Date of Discharge: July 17, 2020 Attending Provider at Admission: Pedro Gudino MD Attending Provider at Discharge: Pedro Gudino MD Primary Care Provider: Georgi Shah Diagnoses at Discharge Discharge Diagnosis (1) Fall at home: Status: Acute (2) Back pain: Status: Acute (3) Rhabdomyolysis: Status: Acute (4) Peripheral neuropathy: Status: Acute Reason for Visit Reason for Visit: WEAKNESS Hospital Course Hospital Course Is a 75-year-old male with past medical history of COPD, sleep apnea who presented to the ER with complaints of increase weakness and leg swelling. He was noted to have an elevated D-dimer. A CT chest was ordered.ED His hospitalization was complicated secondary to rhabdomyolysis. Blood sugars were managed. He also was noted to have spinal stenosis. He will likely need follow-up with spine surgery. He was given Lasix. BiPAP CPAP continued to be used. Alcohol withdrawal was also monitored. Given vitamins. Discharged with home health. Physical Exam Const: COMMON NORMALS: no acute distress and patient oriented x3 Resp: COMMON NORMALS: normal respiratory effort and No use of accessory muscles Cardio: COMMON NORMALS: regular rate RATE: regular rate GI: COMMON NORMALS: Soft to palpation and non-tender PALPATION: Yes Soft to palpation Neuro: COMMON NORMALS: patient oriented x3 and CN's II-XII intact bilaterally Urinary Catheter Management^: Harris: Cath Placed During This Visit: yes, but has since been removed by the nurse Reason for Continuing Indwelling Catheter: Accurate Measurement of Urinary Output in Critically Ill Patients Urinary Catheter Date of Insertion: 07/07/20 Urinary Catheter Time of Insertion: 16:35 Date Urinary Catheter Removed: 07/11/20 Time Urinary Catheter Discontinued: 19:11 Discharge Data Data Completed and Pending: Completed Studies During Hospitalization Category Date Time Status CT angio chest PE protcl [id number] Rout ine Cat Scan 07/09/20 09:[address] head wo con* 7 0450 Stat Cat Scan 07/09/20 10:[address] lumbar spine w o con* [id number] Stat Cat Scan 07/09/20 10:25 Completed XR chest 1V tito ble [id number] Stat Exams 07/06/20 22:11 Completed XR thoracic spine 3V* [id number] Routine Exams 07/09/20 06:00 Completed CV carotid duplex BI* [id number] Routine Ultrasound 07/09/20 10:27 Completed CV echo wo/w cont rast [id number] Routine Ultrasound 07/09/20 01:39 [place] [id number] Routin e Ultrasound 07/07/20 15:00 Completed US abdomen comple te* [id number] Routine Ultrasound 07/09/20 14:18 Completed Pending at discharge Category Date Time Status Complete Blood Co unt w/Auto AM LABS Lab 07/18/20 04:00 Ordered Comprehensive Met abolic Panel AM LA BS Lab 07/18/20 04:00 Ordered Magnesium AM LABS Lab 07/18/20 04:00 Ordered Labs from last 24 hours 07/17/20 07/17/20 07/17/20 06:29 05:54 05:54 WBC 5.8 RBC 3.62 L Hgb 12.5 Hct 39.4 L MCV 108.8 H MCH 34.5 H MCHC 31.7 RDW 12.4 Plt Count 294 MPV 9.6 Neut % (Auto) 61.8 Lymph % (Auto) 16.8 [place] % (Auto) 16.1 Eos % (Auto) 3.4 Baso % (Auto) 1.4 Neut # (Auto) 3.61 Lymph # (Auto) 1.0 [place] # (Auto) 0.9 Eos # (Auto) 0.2 Baso # (Auto) 0.1 Nucleated RBC % (a uto) 0 Nucleated RBCs # 0.0 Sodium 140 Potassium 4.1 Chloride 103 Carbon Dioxide 27 Anion Gap 14.1 BUN 21 Creatinine 0.7 GFR Calculation Not Reportable Glucose 133 H POC Glucose 135 H Calculated Osmolal ity 295 Calcium 8.9 Magnesium 1.8 Total Bilirubin 0.4 AST 21 ALT 22 Alkaline Phosphata se 48 Total Protein 6.0 L Albumin 3.3 L Globulin 2.7 07/16/20 07/16/20 18:57 17:10 WBC RBC Hgb Hct MCV MCH MCHC RDW Plt Count MPV Neut % (Auto) Lymph % (Auto) [place] % (Auto) Eos % (Auto) Baso % (Auto) Neut # (Auto) Lymph # (Auto) [place] # (Auto) Eos # (Auto) Baso # (Auto) Nucleated RBC % (a uto) Nucleated RBCs # Sodium Potassium Chloride Carbon Dioxide Anion Gap BUN Creatinine GFR Calculation Glucose POC Glucose 178 H 177 H Calculated Osmolal ity Calcium Magnesium Total Bilirubin AST ALT Alkaline Phosphata se Total Protein Albumin Globulin Vitals: Last Vital Signs Temp 98.7 F 07/17/20 11:26 Pulse 92 07/17/20 11:26 Resp 16 07/17/20 11:26 BP 133/71 07/17/20 11:26 Pulse Ox 95 07/17/20 11:26 Discharge Plan Discharge Patient Disposition: Home Health Service Condition: Stable Prescriptions: New lisinopril 20 mg Tablet 40 mg PO DAILY Qty: 30 RF: 0 allopurinol 100 mg Tablet 100 mg PO DAILY Qty: 30 RF: 0 doxycycline monohydrate 100 mg Tablet 100 mg PO BID Qty: 6 RF: 0 Vitamin B-1 (mononitrate) 100 mg Tablet 100 mg PO DAILY Qty: 30 RF: 0 Continued amlodipine 10 mg Tablet 10 mg PO DAILY RF: 0 omeprazole 20 mg Capsule,Delayed Release(Dr/Ec) 20 mg PO DAILY RF: 0 potassium chloride 20 mEq Tablet Extended Release 20 meq PO DAILY RF: 0 trazodone 100 mg Tablet 100 mg PO QPM RF: 0 cetirizine 10 mg Tablet 10 mg PO DAILY RF: 0 furosemide 40 mg Tablet 40 mg PO DAILY RF: 0 Discontinued meloxicam 7.5 mg Tablet 7.5 mg PO BID RF: 0 Discharge Orders: Discharge Order (Routine); Ordered 07/17/20 Ordered By: Pedro Gudino Referrals: Georgi Shah [Primary Care Provider] - 07/24/20 10:00 am Discharge Diet: Cardiac Discharge Activity: Resume usual activity Patient Instructions: Opioid Safety Discharge Attestations Time Spent in Discharge Care*: less than 30 min Quality Metrics Clinical Quality Measures During this hospital stay, did patient experience: None Coding Level of Care Code Acute Chg FW DC note Diagnoses Fall at home W19.XXXA; Y92.009 Back pain M54.9 Rhabdomyolysis M62.82 Peripheral neuropathy G62.9
[2020-07-17 11:42] LABS: Glucose Point of Care 133 mg/dL (70-110)
--- NOTE | 2020-07-17 12:45 | PC.NURSE ---
Patient's IV removed at this time. Patient tolerated well. Reviewed patient's discharge with patient at this time. Patient verbalized understanding. Patient reminded to pick his medications up at [facility]. Patient is A&Ox3. Respirations even and non-labored on room air. Patient discharged with his glasses and clothing. Patient wheel chaired to a friends private car.
--- NOTE | 2020-07-17 12:54 | PC.NURSE ---
THIS NURSE CALLED IN DISCHARGE PRESCRIPTIONS TO [facility] FOR DR. ESCOBEDO. TRANSMISSION ELECTRONICALLY DID NOT WORK.
== END 2020-07-17 12:50 | disposition home health service (06) | DRG 552 ==
LOC: ER 07-07 01:05 → MEDSURG 07-07 01:10 → ICU 07-09 14:06 → MEDSURG 07-11 13:59
PROVIDERS: Family Medicine; Hospitalist; Admitting Provider Internal Medicine; Emergency Provider Emergency Medicine; PCP Family Medicine; Visit Provider Internal Medicine
DX: M48.061 Spinal stenosis, lumbar region without neurogenic claudication (principal); F10.239 Alcohol dependence with withdrawal, unspecified; M62.82 Rhabdomyolysis; N39.0 Urinary tract infection, site not specified; M48.07 Spinal stenosis, lumbosacral region; J44.9 Chronic obstructive pulmonary disease, unspecified; G47.30 Sleep apnea, unspecified; Z87.891 Personal history of nicotine dependence; G62.1 Alcoholic polyneuropathy; Z99.81 Dependence on supplemental oxygen; W18.30XA Fall on same level, unspecified, initial encounter; E66.9 Obesity, unspecified; Z68.39 Body mass index [BMI] 39.0-39.9, adult; R73.9 Hyperglycemia, unspecified; D75.89 Other specified diseases of blood and blood-forming organs; D69.59 Other secondary thrombocytopenia; F10.26 Alcohol dependence with alcohol-induced persisting amnestic disorder; R31.9 Hematuria, unspecified; I87.8 Other specified disorders of veins
CPT/HCPCS: 36415; 36416; 36600; 51702; 70450; 71045; 71275; 72072; 72131; 76700; 80048; 80051; 80053; 80061; 80074; 81001; 81003; 82140; 82330; 82550; 82553; 82607; 82746; 82803; 82805; 82962; 83036; 83605; 83735; 83880; 84100; 84145; 84443; 84484; 84550; 85025; 85378; 85610; 85651; 86140; 87040; 87086; 93005; 93880; 93970; 94640; 94660; 94664; 96372; 96374; 97110; 97116; 97161; 97167; 97530; 97535; 99285; C8929; C9113; J0696; J1650; J1815; J1940; J2060; J2270; J3411; J3475; Q9967

== ENCOUNTER 2020-10-15 14:47 | Outpatient (CLI) | payer OTHER, SELFPAY ==
--- NOTE | 2020-10-15 14:57 | MR_ITS ---
WS: [id number] MRI BRAIN WITHOUT CONTRAST HISTORY: RIGHT FACIAL PARALYSIS COMPARISON: None available. TECHNIQUE: Limited evaluation. Only a few sequences are submitted. Study determined early calcificati on pain. Only 3 sequences are obtained before patient was unable to continue with this examination. No midline shift or mass effect. No large area of hemorrhage. There is mild bilateral cerebral atrophy. No mass effect upon the marshall-white matter differentiation. Ventricles are normal size. Visualized brainstem is normal. No inferior displacement of the cerebellar tonsils. Degenerative disc disease at C3-4. There is a central disc protrusion and osteophyte encroaching upon the ventral thecal sac. MR/MR head wo con* [id number] IMPRESSION: 1. Very limited evaluation of the brain MRI. Study terminated early because of patient discomfort. 2. No significant mass effect or loss of marshall-white matter differentiation. 3. Mild atrophy.
== END 2020-10-15 14:48 | disposition home or self-care (01) ==
PROVIDERS: PCP Family Medicine; Visit Provider Family Medicine
DX: G51.0 Bell's palsy (principal)
CPT/HCPCS: 70551

== ENCOUNTER 2020-11-05 11:24 | Outpatient (CLI) | payer OTHER, SELFPAY ==
--- NOTE | 2020-11-05 11:31 | FL_ITS ---
WS: [id number] FL barium swallow modifd [id number] REASON FOR EXAM: Other dysphagia. Sensation of food sticking in the cervical esophagus. FLUOROSCOPY TIME: 2.3 minutes. The swallowing of barium of varying consistencies was evaluated fluoro scopically over the cervical esophagus and recorded. The swallowing of barium was fluoroscopically ev aluated over the distal two thirds the esophagus with the patient standing. FINDINGS: There was no aspiration. The motility in the cervical esophagus was somewhat diminished as residual barium was noted after the initial swallow with the thicker or more solid consistency meals. This residual cleared with additio nal swallowing or a more liquid meal. The motility of the distal esophagus was normal. A detailed report of the swallowing will be rendered by the speech therapy department after further r eview of the fluoroscopic recording. FL/FL barium swallow modifd [id number] IMPRESSION: Swallowing study as above.
== END 2020-11-05 11:25 | disposition home or self-care (01) ==
LOC: RAD 11:26
PROVIDERS: PCP Family Medicine; Visit Provider Family Medicine
DX: R13.19 Other dysphagia (principal)
CPT/HCPCS: 74230; 92611

== ENCOUNTER 2020-11-08 06:00 | Outpatient (RCR) | payer OTHER, SELFPAY | END 2020-11-22 23:59 | disposition home or self-care (01) | LOC: TST 06:00 | PROVIDERS: PCP Family Medicine; Referring Provider Family Medicine; Visit Provider Family Medicine | DX: R13.10 Dysphagia, unspecified (principal) | CPT/HCPCS: 92526; 92610 ==

== ENCOUNTER 2020-11-23 06:00 | Outpatient (RCR) | payer OTHER, SELFPAY | END 2020-12-23 23:59 | disposition home or self-care (01) | LOC: TST 06:00 | PROVIDERS: PCP Family Medicine; Referring Provider Family Medicine; Visit Provider Family Medicine | DX: R13.10 Dysphagia, unspecified (principal) | CPT/HCPCS: 92526 ==

== ENCOUNTER → 2020-12-05 13:07 | Outpatient (BNVA) | payer OTHER, SELFPAY | PROVIDERS: PCP Family Medicine; Referring Provider Family Medicine; Visit Provider Specialist | DX: M19.012 Primary osteoarthritis, left shoulder (principal); M19.011 Primary osteoarthritis, right shoulder | CPT/HCPCS: 73030 ==

== ENCOUNTER 2020-12-12 06:00 | Outpatient (RCR) | payer OTHER, SELFPAY | END 2020-12-23 23:59 | disposition home or self-care (01) | LOC: TPT 06:00 | PROVIDERS: PCP Family Medicine; Referring Provider Specialist; Visit Provider Specialist | DX: M19.012 Primary osteoarthritis, left shoulder (principal); M19.011 Primary osteoarthritis, right shoulder | CPT/HCPCS: 97110; 97140; 97162 ==

== ENCOUNTER 2020-12-24 06:00 | Outpatient (RCR) | payer OTHER, SELFPAY | END 2021-01-22 23:59 | disposition home or self-care (01) | LOC: TPT 06:00 | PROVIDERS: PCP Family Medicine; Referring Provider Specialist; Visit Provider Specialist | DX: M19.012 Primary osteoarthritis, left shoulder (principal); M19.011 Primary osteoarthritis, right shoulder | CPT/HCPCS: 97110; 97140; 97164; 97530 ==

== ENCOUNTER 2021-01-23 06:00 | Outpatient (RCR) | payer OTHER, SELFPAY | END 2021-01-31 23:59 | disposition home or self-care (01) | LOC: TPT 06:00 | PROVIDERS: PCP Family Medicine; Referring Provider Specialist; Visit Provider Specialist | DX: M19.012 Primary osteoarthritis, left shoulder (principal); M19.011 Primary osteoarthritis, right shoulder | CPT/HCPCS: 97110; 97140; 97164 ==

== ENCOUNTER 2021-05-16 12:03 | Emergency (ER) | payer OTHER, MEDICARE, SELFPAY ==
[2021-05-16] VITALS (7 sets, daily range): BP systolic 119–135; BP diastolic 60–77; PULSE 62–73; RESP 16–24; TEMP 36.6; O2SAT 94–98; BMI 34.4
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
--- NOTE | 2021-05-16 12:44 | XR_ITS ---
WS: [id number] Portable AP upright chest, 05/16/2021 Clinical Data: wheezing Comparison: Portable chest, 07/06/2020 Findings: No nodules, masses or effusions are seen. The heart is normal. The pulmonary vascularity is not increased. No pneumonia or pneumothorax is seen. The aortic arch and descending thoracic aorta s how calcification and mild tortuosity. The diaphragms are flattened. XR/XR chest 1V portable [id number] Impression: Atherosclerosis and hyperinflation.
[2021-05-16] MEDS: ipratropium-albuterol 3 mL Neb INHALATION (13:10)
[2021-05-16 13:28] LABS: Basophils # 0.1 10^3/uL (0.0-0.1); Basophils % 0.6 %; Eosinophils # 0.9 10^3/uL (0.0-0.8); Eosinophils % 10.9 %; Hematocrit 40.6 % (42.0-52.0); Hemoglobin 13.1 g/dL (11.7-16.6); Lymphocytes # 1.7 10^3/uL (0.8-4.8); Lymphocytes % 20.7 %; Mean Corpuscular HGB Conc 32.3 g/dL (30.0-36.0); Mean Corpuscular Hemoglobin 31.3 pg (28.0-34.0); Mean Corpuscular Volume 96.9 fl (80-94); Mean Platelet Volume 9.5 fL (7.4-10.4); Monocytes # 0.7 10^3/uL (0.2-0.9); Monocytes % 8.3 %; Neutrophils # 4.74 10^3/uL (1.8-7.7); Neutrophils % 58.9 %; Nucleated Red Blood Cells % 0 %; Platelet Count 204 10^3/cmm (130-400); Red Blood Count 4.19 10^6/uL (4.1-5.3); Red Cell Distribution Width 13.7 % (12.1-15.1); White Blood Count 8.1 10^3/uL (4.0-10.0)
[2021-05-16 14:04] LABS: Anion Gap 14.4 (5-19); Blood Urea Nitrogen 32 mg/dL (8-23); Calcium 9.7 mg/dL (8.5-10.5); Carbon Dioxide 24 mmol/L (22-29); Chloride 104 mmol/L (98-107); Glucose 110 mg/dL (65-115); NT Pro B Type Natriuretic Pept 38 pg/mL (0-450); Osmolality Calculated 294 mOsm/kg (285-295); Potassium 4.4 mmol/L (3.5-5.1); Sodium 138 mmol/L (136-145)
== END 2021-05-16 14:46 | disposition home or self-care (01) ==
PROVIDERS: Emergency Provider Nurse Practitioner Family; PCP Family Medicine
DX: J44.9 Chronic obstructive pulmonary disease, unspecified (principal); G47.30 Sleep apnea, unspecified; I12.9 Hypertensive chronic kidney disease with stage 1 through stage 4 chronic kidney disease, or unspecified chronic kidney disease; N18.2 Chronic kidney disease, stage 2 (mild); E78.5 Hyperlipidemia, unspecified; Z87.891 Personal history of nicotine dependence
CPT/HCPCS: 71045; 80048; 83880; 85025; 94640; 96374; 99283; J2930

== ENCOUNTER → 2021-06-13 11:22 | Outpatient (BNVA) | payer OTHER, SELFPAY | PROVIDERS: PCP Family Medicine; Visit Provider Podiatrist Foot & Ankle Surgery | DX: L60.3 Nail dystrophy (principal); I73.9 Peripheral vascular disease, unspecified; L60.8 Other nail disorders; Z87.891 Personal history of nicotine dependence | CPT/HCPCS: 11721; 99213 ==

== ENCOUNTER → 2021-10-08 10:11 | Outpatient (BNVA) | payer OTHER, SELFPAY | PROVIDERS: PCP Family Medicine; Visit Provider Podiatrist Foot & Ankle Surgery | DX: I73.9 Peripheral vascular disease, unspecified (principal); L60.8 Other nail disorders; L60.3 Nail dystrophy | CPT/HCPCS: 11721 ==

== ENCOUNTER 2021-12-09 15:31 | Emergency (ER) | payer OTHER, SELFPAY ==
[2021-12-09 15:37] VITALS: BP 132/61; PULSE 95; RESP 24; TEMP 36.3; O2SAT 90; BMI 42.4
--- NOTE | 2021-12-09 16:31 | ECG_ITS ---
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 Measurements Intervals [place] Rate: 95 P: HI: QRS: -81 QRSD: 94 T: 31 QT: 329 QTc: 414 Interpretive Statements SUPRAVENTRICULAR RHYTHM LEFT AXIS DEVIATION [QRS AXIS < -30] LOW QRS VOLTAGE [QRS DEFLECTION < 0.5/1.0 mV IN LIMB/CHEST LEADS] POSSIBLE ANTERIOR MYOCARDIAL INFARCTION , PROBABLY OLD [30 ms Q WAVE IN V3/V4, OR R < 0.2 mV IN V4] Compared to ECG 07/07/2020 03:56:37 Supraventricular rhythm now present Left-axis deviation now present Low QRS voltage now present Sinus rhythm no longer present Left anterior fascicular block no longer present Myocardial infarct finding still present Electronically Signed On 12-09-2021 17:16:15 CDT by Adithya Bernal M.D. [id number]
--- NOTE | 2021-12-09 16:31 | XRR_ITS ---
PROCEDURE INFORMATION: Exam: XR Chest Exam date and time: 12/09/2021 4:37 PM Age: 76 years old Clinical indication: Cough and dyspnea; Additional info: Dyspnea/cough TECHNIQUE: Imaging protocol: Radiologic exam of the chest. Views: 1 view. COMPARISON: 1. CR XR chest 1V portable [id number] 05/16/2021 1:[address] angio chest PE protcl [id number] 07/09/2020 10:56 AM FINDINGS: Lungs: Linear airspace opacities in the left lung base. The right lung is clear. Changes of emphysema. Pleural spaces: Unremarkable. No pleural effusion. No pneumothorax. Heart/Mediastinum: Widening of the superior mediastinum is unchanged and corresponds to prominent mediastinal fat and lymphadenopathy on the CT scan. Bones/joints: Unremarkable. XR/XR chest 1V portable [id number] IMPRESSION: 1. Opacity in the left lung base could represent atelectasis and/or pneumonia. 2. Stable widening of the mediastinum, corresponding to chronic mediastinal lymphadenopathy.
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
--- NOTE | 2021-12-09 16:40 | USR_ITS ---
PROCEDURE INFORMATION: Exam: US Abdomen; Limited Exam date and time: 12/09/2021 5:12 PM Age: 76 years old Clinical indication: Bloating; Additional info: Evaluate for ascites TECHNIQUE: Imaging protocol: Real time ultrasound of the abdomen with image documentation. Limited exam focused on the region of clinical interest. COMPARISON: US abdomen complete* [id number] 07/09/2020 3:12 PM FINDINGS: Intraperitoneal space: Survey of all 4 abdominal quadrants demonstrates no visible ascites. US/US abdomen lmt fluid [id number] IMPRESSION: No ascites.
[2021-12-09 16:59] LABS: Basophils # 0.1 10^3/uL (0.0-0.1); Basophils % 0.6 %; Eosinophils # 0.3 10^3/uL (0.0-0.8); Eosinophils % 3.7 %; Hematocrit 39.1 % (42.0-52.0); Hemoglobin 12.7 g/dL (11.7-16.6); Lymphocytes # 1.9 10^3/uL (0.8-4.8); Lymphocytes % 22.3 %; Mean Corpuscular HGB Conc 32.5 g/dL (30.0-36.0); Mean Corpuscular Hemoglobin 32.7 pg (28.0-34.0); Mean Corpuscular Volume 100.8 fl (80-94); Mean Platelet Volume 9.3 fL (7.4-10.4); Monocytes # 0.9 10^3/uL (0.2-0.9); Neutrophils # 5.32 10^3/uL (1.8-7.7); Neutrophils % 62.6 %; Nucleated Red Blood Cells % 0 %; Platelet Count 239 10^3/cmm (130-400); Red Blood Count 3.88 10^6/uL (4.1-5.3); Red Cell Distribution Width 12.2 % (12.1-15.1); White Blood Count 8.5 10^3/uL (4.0-10.0)
[2021-12-09] MEDS: FUROsemide 10 mg/mL SDV 4mL 40 MG IVP (17:03)
--- NOTE | 2021-12-09 17:09 | PC.PHAR ---
[facility] ALLERGIC TO GABAPENTIN AND PRAVASTATIN- PT STS HE IS NOT ALLERGIC TO ANY MEDS
[2021-12-09 17:28] LABS: INR 1.01 (0.8-1.2); Partial Thromboplastin Time 27.6 SECONDS (23.9-36.7)
[2021-12-09 17:29] LABS: Add Urine Microscopic? NO; Charge for UA Resulting for Rev
[2021-12-09 17:32] LABS: Ammonia 22 umol/L (16-60)
[2021-12-09 17:41] LABS: Alanine Aminotransferase 16 U/L (0-41); Albumin Level 4.1 g/dL (3.5-5.2); Alkaline Phosphatase 78 U/L (40-130); Anion Gap 19.9 (5-19); Aspartate Amino Transferase 18 U/L (0-40); Blood Urea Nitrogen 62 mg/dL (8-23); Calcium 9.8 mg/dL (8.5-10.5); Carbon Dioxide 24 mmol/L (22-29); Chloride 94 mmol/L (98-107); Globulin 3.2 g/dL (1.3-4.6); Glucose 113 mg/dL (65-115); NT Pro B Type Natriuretic Pept 49 pg/mL (0-450); Osmolality Calculated 290 mOsm/kg (285-295); Sodium 131 mmol/L (136-145); Total Bilirubin 0.6 mg/dL (0.15-1.2); Total Protein 7.3 g/dL (6.6-8.7)
[2021-12-09 17:44] LABS: Bilirubin Urine Neg (Negative); Blood Urine Neg (Negative); Glucose Urine UA Norm (Normal); Ketones Urine Negative (Negative); Leukocyte Esterase Urine Negative (Negative); Nitrate Urine Negative (Negative); Protein Urine Neg (Negative); Specific Gravity, Urine 1.005 (1.005-1.030); Urine Appearance Clear (CLEAR); Urine Color Straw (Yellow); Urobilinogen Urine Norm (Negative); pH Urine 7 (5-7)
[2021-12-09 17:46] LABS: Potassium 6.9 mmol/L (3.5-5.1)
[2021-12-09 18:10] VITALS: PULSE 100; RESP 18; O2SAT 98
[2021-12-09] MEDS: calcium chloride 10% Syr 10 mL 1 GM IVP (18:15)
[2021-12-09] MEDS: sodium polystyrene sulfonate 15 gm/60 mL Btl 30 GM PO (18:15)
[2021-12-09 18:19] VITALS: PULSE 101; RESP 18; O2SAT 97
[2021-12-09 19:02] LABS: Glucose Point of Care 127 mg/dL (70-110)
[2021-12-09] MEDS: insulin regular-human 100 units/1 mL 10 UNIT IVP (19:06)
[2021-12-09] MEDS: dextrose 50% syringe 50 mL IVP (19:07)
[2021-12-09] MEDS: sodium chloride 0.9% 1,000 ML 75 ML IV (20:24)
[2021-12-09 20:30] VITALS: BP 129/69; PULSE 105; RESP 20; O2SAT 95
[2021-12-09 20:36] VITALS: BP 129/69; PULSE 104; RESP 25; O2SAT 95
[2021-12-09 20:59] LABS: Potassium 5.6 mmol/L (3.5-5.1)
== END 2021-12-09 20:57 | disposition short-term general hospital (02) ==
PROVIDERS: Family Medicine; Emergency Provider Emergency Medicine; PCP Family Medicine
DX: N17.9 Acute kidney failure, unspecified (principal); E87.5 Hyperkalemia; F10.11 Alcohol abuse, in remission; J44.9 Chronic obstructive pulmonary disease, unspecified; E78.5 Hyperlipidemia, unspecified; I10 Essential (primary) hypertension; Z87.891 Personal history of nicotine dependence
CPT/HCPCS: 36416; 71045; 76705; 80053; 81003; 82140; 82962; 83880; 84132; 85025; 85610; 85730; 93005; 94640; 96361; 96374; 96375; 99285; J1815; J1940; J3490; J7030; J7611

== ENCOUNTER 2022-01-27 16:00 | Inpatient (IN) | payer OTHER, SELFPAY ==
[2022-01-27] VITALS (9 sets, daily range): BP systolic 151–170; BP diastolic 66–94; PULSE 90–108; RESP 17–20; TEMP 36.6–38.6; O2SAT 93–95; BMI 44.1
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
--- NOTE | 2022-01-27 16:03 | XRR_ITS ---
PROCEDURE INFORMATION: Exam: XR Chest Exam date and time: 01/27/2022 5:05 PM Age: 76 years old Clinical indication: Shortness of breath; Additional info: SOB, cough TECHNIQUE: Imaging protocol: Radiologic exam of the chest. Views: 1 view. COMPARISON: CR (CHEST, ) 12/09/2021 4:37 PM FINDINGS: Lungs: No consolidation. Pleural spaces: Left costophrenic blunting which may reflect left basilar scarring/atelectasis or small volume left pleural effusion. No pneumothorax. Heart/Mediastinum: Stable cardiomegaly. Bones/joints: Visualized osseous structures are intact. XR/XR chest 1V portable [id number] IMPRESSION: Left costophrenic blunting which may reflect left basilar scarring/atelectasis or small volume left pleural effusion. Stable cardiomegaly.
--- NOTE | 2022-01-27 16:03 | ECG_ITS ---
[facility] Test Date: 2022-01-27 Pat Name: Arabella Lutz Department: Room: Gender: Male Vocational Psychologist: : 1945 Requested By: Elvin Lewis Order Number: [id number] Jameson MD: Adithya Bernal M.D. Measurements Intervals [place] Rate: 104 P: 79 MA: 208 QRS: -71 QRSD: 97 T: 45 QT: 337 QTc: 444 Interpretive Statements SINUS TACHYCARDIA LEFT AXIS DEVIATION [QRS AXIS < -30] LOW QRS VOLTAGE IN PRECORDIAL LEADS [QRS DEFLECTION < 1.0 mV IN CHEST LEADS] ANTEROSEPTAL MYOCARDIAL INFARCTION , OF INDETERMINATE AGE [40+ ms Q WAVE IN V1-V4] Compared to ECG 12/09/2021 16:40:50 Supraventricular rhythm no longer present Myocardial infarct finding still present Electronically Signed On 01-27-2022 19:03:07 CLIENT COORDINATOR by Adithya Bernal M.D. [id number]
--- NOTE | 2022-01-27 16:12 | PC.NURSE ---
pt dates if his daughter calls, its okay to give her information
[2022-01-27 16:29] LABS: Blood Gas Sample Type Arterial; Oxygen Device NC
[2022-01-27 16:35] LABS: Basophils % 0.4 %; Eosinophils # 0.1 10^3/uL (0.0-0.8); Eosinophils % 1.7 %; Hematocrit 36.2 % (42.0-52.0); Hemoglobin 11.8 g/dL (11.7-16.6); Lymphocytes # 1.1 10^3/uL (0.8-4.8); Lymphocytes % 15.8 %; Mean Corpuscular HGB Conc 32.6 g/dL (30.0-36.0); Mean Corpuscular Hemoglobin 33.8 pg (28.0-34.0); Mean Corpuscular Volume 103.7 fl (80-94); Monocytes # 0.7 10^3/uL (0.2-0.9); Monocytes % 10.1 %; Neutrophils # 5.14 10^3/uL (1.8-7.7); Neutrophils % 71.4 %; Nucleated Red Blood Cells % 0 %; Platelet Count 168 10^3/cmm (130-400); Red Blood Count 3.49 10^6/uL (4.1-5.3); Red Cell Distribution Width 13.4 % (12.1-15.1); White Blood Count 7.2 10^3/uL (4.0-10.0)
[2022-01-27 16:39] LABS: ABG PCO2 43.1 mmHg (35-45); ABG PH Result 7.41 (7.35-7.45); Arterial Blood Gas Hematocrit 36.2 % (42-52); Base Excess ABG 2.3 mmol/L (-2.0-2.0); Blood Gas Operator Identificat GD; Blood Gas Sample Site Brachial, right; Carboxyhemoglobin 1.3 %THgb (0.4-20.1); HCO3 ABG 27.3 mmol/L (22-26); HGB O2 Sat 95.8 % (95-100); Methemoglobin 0.9 % (0.4-1.5); PO2 ABG 81.4 mmHg (80.0-100.0); Total Hemoglobin 11.8 g/dL (14-18)
[2022-01-27 16:58] LABS: Lactic Sepsis W/Reflex 2.1 mmol/L (0.5-2.2)
[2022-01-27 17:17] LABS: Troponin(5th) Baseline 35 ng/L (0-15)
[2022-01-27 17:25] LABS: NT Pro B Type Natriuretic Pept 121 pg/mL (0-450)
--- NOTE | 2022-01-27 17:27 | PC.PHAR ---
PT [facility] BLOOD PRESSURE MEDICATION A COUPLE OF WEEKS AGO. [facility] UNABLE TO CALL AND VERIFY WITH CLINIC. [facility] L[facility] STILL SH[facility] LISINOPRIL 20 MG DAILY
[2022-01-27 17:37] LABS: Alanine Aminotransferase 26 U/L (0-41); Albumin Level 3.8 g/dL (3.5-5.2); Alkaline Phosphatase 84 U/L (40-130); Anion Gap 15.3 (5-19); Aspartate Amino Transferase 33 U/L (0-40); Blood Urea Nitrogen 17 mg/dL (8-23); Calcium 8.9 mg/dL (8.5-10.5); Carbon Dioxide 24 mmol/L (22-29); Chloride 100 mmol/L (98-107); Globulin 2.9 g/dL (1.3-4.6); Glucose 134 mg/dL (65-115); Osmolality Calculated 284 mOsm/kg (285-295); Potassium 4.3 mmol/L (3.5-5.1); Sodium 135 mmol/L (136-145); Total Bilirubin 0.5 mg/dL (0.15-1.2); Total Protein 6.7 g/dL (6.6-8.7)
[2022-01-27] MEDS: ipratropium-albuterol 3 mL Neb INHALATION (17:37)
--- NOTE | 2022-01-27 18:03 | ECG_ITS ---
[facility] Test Date: 2022-01-27 Pat Name: Arabella Lutz Department: Room: 269 Gender: Male Video Network Engineer: : 1945 Requested By: Elvin Lewis Order Number: [id number] Jameson MD: Liliana Tang M.D. Measurements Intervals [place] Rate: 77 P: 19 IA: 176 QRS: -74 QRSD: 94 T: 28 QT: 379 QTc: 431 Interpretive Statements SINUS RHYTHM WITH OCCASIONAL SUPRAVENTRICULAR PREMATURE COMPLEXES LEFT AXIS DEVIATION LOW QRS VOLTAGE IN PRECORDIAL LEADS [QRS DEFLECTION < 1.0 mV IN CHEST LEADS] POSSIBLE ANTERIOR MYOCARDIAL INFARCTION , PROBABLY OLD Compared to ECG 01/27/2022 16:34:14 Sinus tachycardia no longer present Myocardial infarct finding still present Electronically Signed On 01-28-2022 13:01:16 HYDROLOGY TECHNICIAN by Liliana Tang M.D. [id number]
[2022-01-27 18:20] LABS: Reflex Lactate Order REFLEX LACTIC ORDERD
--- NOTE | 2022-01-27 19:08 | CTR_ITS ---
PROCEDURE INFORMATION: Exam: CTA Chest With Contrast Exam date and time: 01/27/2022 7:49 PM Age: 76 years old Clinical indication: Shortness of breath; Prior surgery; Surgery type: Gb; Patient HX: C/O SOB. Hypoxic on monitor. Flu a positive. History of copd. ; Additional info: SOB, hypoxia TECHNIQUE: Imaging protocol: Computed tomographic angiography of the chest with contrast. 3D rendering (Not supervised by radiologist): MIP and/or 3D reconstructed images were created by the technologist. Radiation optimization: All CT scans at this facility use at least one of these dose optimization techniques: automated exposure control; mA and/or kV adjustment per patient size (includes targeted exams where dose is matched to clinical indication); or iterative reconstruction. Contrast material: OMNI 350; Contrast volume: 100 ml; Contrast route: INTRAVENOUS (IV); COMPARISON: CT angio chest PE prot [id number] 07/09/2020 10:56 AM RADIATION DOSE METRICS: Total DLP (mGy-cm): 587.52 FINDINGS: Pulmonary arteries: Normal. No pulmonary emboli. Aorta: No aortic aneurysm. No aortic dissection. Lungs: No consolidation. No masses. Pleural spaces: No pneumothorax. No pleural effusion. Heart: Coronary artery calcifications noted. No cardiomegaly. Prominent pericardial fat pad. No pericardial effusion. Lymph nodes: Some mildly prominent paratracheal lymph nodes noted which are morphologically normal and are most likely reactive. Bones/joints: No acute fracture. Soft tissues: Unremarkable. CT/CT angio chest PE protcl [id number] IMPRESSION: No acute findings. Negative for pulmonary embolism.
[2022-01-27 19:25] LABS: Troponin 5 2HR 29.69 ng/L (0-15)
[2022-01-27 19:28] LABS: Lactic Acid level (Lactate) 2.4 mmol/L (0.5-2.2); Troponin 5 2HR Delta -5.31 ABS# (0-10)
[2022-01-27] MEDS: cefTRIAXone 1,000 MG in sodium chloride 0.9% (plus) 50 ML 100 MG IV (19:28)
[2022-01-27] MEDS: doxycycline 100 MG in sodium chloride 0.9% (plus) 100 ML IV (19:28)
[2022-01-27 19:30] LABS: Adenovirus Not Detected (NOT DETECT); Chlamydia Pneumoniae Not Detected (NOT DETECT); Coronavirus 229E,HKU1,NL63,OC4 Not Detected (NOT DETECT); Human Metapneumovirus Not Detected (NOT DETECT); Human Rhinovirus/Enterovirus Not Detected (NOT DETECT); Influenza A Detected (NOT DETECT); Influenza A H1 Not Detected (NOT DETECT); Influenza A H1-2009 Detected (NOT DETECT); Influenza A H3 Not Detected (NOT DETECT); Influenza B Not Detected (NOT DETECT); Mycoplasma Pneumoniae Not Detected (NOT DETECT); Parainfluenza Virus Type 1 Not Detected (NOT DETECT); Parainfluenza Virus Type 2 Not Detected (NOT DETECT); Parainfluenza Virus Type 3 Not Detected (NOT DETECT); Parainfluenza Virus Type 4 Not Detected (NOT DETECT); Respiratory Syncytial Virus A Not Detected (NOT DETECT); Respiratory Syncytial Virus B Not Detected (NOT DETECT); SARS-COV-2 Not Detected (NOT DETECT)
[2022-01-27] MEDS: iohexol 350 mg/mL 500 mL Btl (per mL) IV (19:57)
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
[2022-01-27] MEDS: enoxaparin 40 mg/0.4 mL Syringe SUBCUT (21:31)
[2022-01-27 22:27] LABS: Procalcitonin 0.16 ng/mL (0-0.5)
[2022-01-27] MEDS: bumetanide 0.25 mg/mL SDV 10 mL 2 MG IVP (23:01)
[2022-01-27 23:05] LABS: NT Pro B Type Natriuretic Pept 144 pg/mL (0-450)
[2022-01-28] VITALS (12 sets, daily range): BP systolic 144–156; BP diastolic 75–80; PULSE 67–100; RESP 13–30; TEMP 36.4–36.6; O2SAT 93–100
[2022-01-28 02:11] LABS: Basophils % 0.2 %; Hematocrit 36.2 % (42.0-52.0); Hemoglobin 11.6 g/dL (11.7-16.6); Lymphocytes # 0.4 10^3/uL (0.8-4.8); Lymphocytes % 6.3 %; Mean Corpuscular Hemoglobin 34.1 pg (28.0-34.0); Mean Corpuscular Volume 106.5 fl (80-94); Mean Platelet Volume 9.3 fL (7.4-10.4); Monocytes # 0.1 10^3/uL (0.2-0.9); Neutrophils # 5.52 10^3/uL (1.8-7.7); Neutrophils % 91.8 %; Nucleated Red Blood Cells % 0 %; Platelet Count 162 10^3/cmm (130-400); Red Cell Distribution Width 13.2 % (12.1-15.1)
[2022-01-28 02:32] LABS: Anion Gap 16.7 (5-19); Blood Urea Nitrogen 21 mg/dL (8-23); C Reactive Protein 43.6 mg/L (0.0-4.9); Calcium 8.8 mg/dL (8.5-10.5); Carbon Dioxide 24 mmol/L (22-29); Chloride 97 mmol/L (98-107); Glucose 352 mg/dL (65-115); Magnesium 1.9 mg/dL (1.7-2.3); Osmolality Calculated 293 mOsm/kg (285-295); Phosphorus 2.6 mg/dL (2.5-4.5); Potassium 4.7 mmol/L (3.5-5.1); Sodium 133 mmol/L (136-145)
[2022-01-28 03:15] LABS: Lactate (Lactic Acid level) 4.2 mmol/L (0.5-2.2)
[2022-01-28] MEDS: budesonide 0.5 mg/2 mL Neb INHALATION ×2 (09:27→22:31)
[2022-01-28] MEDS: ipratropium-albuterol 3 mL Neb INHALATION ×2 (09:28→22:31)
--- NOTE | 2022-01-28 09:29 | PC.RESP ---
Pt wears 6lpm O2 at night at home and has for 4-6 years.
[2022-01-28] MEDS: allopurinol 100 mg Tablet PO (09:38)
[2022-01-28] MEDS: thiamine 100 mg Tablet PO (09:38)
[2022-01-28] MEDS: potassium chloride ER 20 mEq Tablet PO (09:38)
[2022-01-28] MEDS: pantoprazole DR 40 mg Tablet PO (09:38)
[2022-01-28] MEDS: oseltamivir phosphate 75 mg Capsule PO ×2 (09:38→18:23)
[2022-01-28] MEDS: magnesium oxide 400 mg tablet PO (09:38)
--- NOTE | 2022-01-28 10:10 | PC.CHAP ---
Pastoral Care Encounter/Spiritual Assessment Type of Contact [] Declined unstacker visit [] Patient/Family/Request visit [] Outpatient visit [] Follow-up visit [] Physician referral [] Code/Alert [x] Routine visit [] Staff referral [] Actively dying [x] Patient sleeping [] Family support [] [] Out of room [] Palliative care [] [] Receiving care in room [] Pre-surgical visit [] Trauma [] Long length of stay [] ICU visit [] Other: Relational/Emotional Strength [] Patient feels connected with others/family/visitors/staff [] Distress [] Loneliness/isolation [] Abandonment Spirituality of Patient [] Person of Arabella [] Attends Jainism of their Arabella [] Believes in Prayer [] Reads Bible or Latter Day materials [] There are Spiritual issues to be addressed Display Screen Fabricator Interventions [] Prayer [] Active listening [] Non-anxious presence [] Spiritual/emotional support [] Crisis/trauma care [] Spiritual counseling [] Bereavement support [] Provided bereavement packet [] Provided Bible/devotional materials [] Provided toy/stuffed animal, coloring book to patient or family member [] Provided Communion [] Anointing/[place] [] Salvation [] Completed spiritual assessment [] Other: Impact on Illness or Injury [] Angry [] Fearful [] Anxious [] Often cries [] Exhaustion [] Unable to work [] Unable to attend episcopal [] Unable to walk/stand [] Unable to read [] Unable to drive [] Unable to eat/drink [] Unable to sleep [] Unable to be with family [] Patient intubated [] Other: Summary Time spent with patient
--- NOTE | 2022-01-28 14:06 | PM.PN ---
Subjective Subjective: Patient was seen and examined this morning currently saturating well on 4liters oxygen per nasal cannula, Uses oxygen at home only during nighttime, has denied any significant shortness of breath, has been afebrile. Medications: Medication Review Details: Generic Name Dose Route Start Last Admin Trade Name Elianq PRN Reason Stop Dose Admin Albuterol/Ipratrop ium 3 ml 01/27/22 20:41 01/28/22 09:28 Ipratropium-Albu terol 3 Ml Neb INHALATION 3 ml Q6H PRN Administration SHORTNESS OF BRIAN TH Allopurinol 100 mg 01/28/22 09:00 01/28/22 09:38 Allopurinol 100 Mg Tablet PO 100 mg DAILY LENARD Administration Budesonide 0.5 mg 01/28/22 08:00 01/28/22 09:27 Budesonide 0.5 M g/2 Ml Neb INHALATION 0.5 mg BID.RESPIRATORY S CH Administration Bumetanide 2 mg 01/27/22 22:30 01/27/22 23:01 Bumetanide 0.25 Mg/Ml Sdv 10 Ml IVP 2 mg Q24H LENARD Administration Enoxaparin Sodium 40 mg 01/27/22 20:45 01/27/22 21:31 Enoxaparin 40 Mg /0.4 Ml Syringe SUBCUT 40 mg Q24H LENARD Administration Magnesium Oxide 400 mg 01/28/22 09:00 01/28/22 09:38 Magnesium Oxide 400 Mg Tablet PO 400 mg DAILY LENARD Administration Oseltamivir Phosph ate 75 mg 01/28/22 09:00 01/28/22 09:38 Oseltamivir Phos phate 75 Mg Capsul e PO 75 mg BID LENARD Administration Pantoprazole Sodiu m 40 mg 01/28/22 09:00 01/28/22 09:[address] 40 Mg Tablet PO 40 mg DAILY LENARD Administration Potassium Chloride 20 meq 01/28/22 09:00 01/28/22 09:38 Potassium Chlori de Er 20 Meq Table t PO 20 meq DAILY LENARD Administration Thiamine Mononitra te 100 mg 01/28/22 09:00 01/28/22 09:38 Thiamine 100 Mg Tablet PO 100 mg DAILY LENARD Administration Vitals/I&O/Wt Last Vital Signs Temp 97.9 F 01/28/22 11:49 Pulse 100 01/28/22 11:49 Resp 19 H 01/28/22 11:49 BP 156/80 01/28/22 11:49 Pulse Ox 96 01/28/22 11:49 O2 Del Method 01/28/22 09:34 O2 Flow Rate 4 01/28/22 09:34 FiO2 45 01/28/22 04:17 01/27/22 01/28/22 01/28/22 22:59 06:59 14:59 Intake Total 150 / 150 480 / 480 Output Total 500 / 500 Balance 150 / 150 -500 / -350 480 / 480 Weight last 48 hrs Weight 131.542 kg Physical Exam Const: COMMON NORMALS: patient oriented x3 Resp: OTHER: Minimal expiratory wheezing Cardio: COMMON NORMALS: regular rate, regular rhythm, S1 normal heart sound present, S2 normal heart sound present, No gallops present (Cardio), No murmurs present (Cardio), No rub (Cardio) and Peripheral pulses 2+ throughout RATE: regular rate RHYTHM: regular rhythm HEART SOUNDS: S1 normal heart sound present and S2 normal heart sound present PERIPHERAL PULSES: Peripheral pulses 2+ throughout GI: COMMON NORMALS: Normal to inspection, nondistended, normoactive bowel sounds present, Soft to palpation, non-tender, No hepatosplenomegaly present and no masses AUSCULTATION: Yes normoactive bowel sounds PALPATION: Yes Soft to palpation and Yes No hepatosplenomegaly present RECTAL EXAM: Yes deferred Extremity: NARRATIVE EXTREMITY EXAM: Trace bilateral lower extremity pitting edema Neuro: COMMON NORMALS: patient oriented x3 Data 01/28/22 01:58 01/28/22 01:58 Micro: Microbiology 01/27/22 23:08 Gram Stain - Final Sputum - Expectorated Sputum 01/27/22 16:28 Blood Culture - Preliminary Blood SPECIMEN COLLECTED 01/27/22 16:20 Blood Culture - Preliminary Blood SPECIMEN COLLECTED A&P Assessment and plan (1) Influenza: (2) Acute exacerbation of chronic obstructive airways disease: (3) Acute respiratory failure with hypoxia: (4) BMI 39.0-39.9,adult: (5) Acute exacerbation of CHF (congestive heart failure): Plan Acute on chronic hypoxia Related to influenza A Sepsis criteria met with fever, tachypnea, high lactic acid Septic bolus could not be given patient clinically does have fluid overloaded state I will be reluctant to give him IV fluids he needs Lasix along potassium supplement for now, Acute preserved ejection fraction heart failure exacerbation due to flu Request blood cultures Will start desonide, DuoNeb Tamiflu, he has received antibiotics in the ER I would not resume antibiotics Respiratory to assess and treat I would not add any antibiotics Check MRSA PCR Requested sputum culture No sign of sepsis or pneumonia No signs of PE Anticipating discharge within 48 hours Cardiac diet DVT prophylaxis on board Full code Attestations Medical Necessity Statement*: Patient is still in hospital for management of influenza. 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
[2022-01-28] MEDS: enoxaparin 40 mg/0.4 mL Syringe SUBCUT (20:06)
[2022-01-28] MEDS: benzonatate 100 mg Capsule 200 MG PO (20:12)
[2022-01-28] MEDS: bumetanide 0.25 mg/mL SDV 10 mL 2 MG IVP (21:41)
[2022-01-28] MEDS: trazodone 100 mg Tablet PO (21:42)
[2022-01-29] VITALS (14 sets, daily range): BP systolic 126–157; BP diastolic 66–89; PULSE 65–107; RESP 13–22; TEMP 36.4–36.8; O2SAT 92–100
--- NOTE | 2022-01-29 05:59 | PC.NURSE ---
Patient voided in toilet. Patient educated to void in urinal in order for accurate urine output measurement.
[2022-01-29] MEDS: budesonide 0.5 mg/2 mL Neb INHALATION ×2 (08:39→21:10)
[2022-01-29] MEDS: ipratropium-albuterol 3 mL Neb INHALATION ×4 (08:39→21:10)
[2022-01-29] MEDS: oseltamivir phosphate 75 mg Capsule PO ×2 (08:41→17:03)
[2022-01-29] MEDS: potassium chloride ER 20 mEq Tablet PO (08:41)
[2022-01-29] MEDS: magnesium oxide 400 mg tablet PO (08:41)
[2022-01-29] MEDS: thiamine 100 mg Tablet PO (08:41)
[2022-01-29] MEDS: pantoprazole DR 40 mg Tablet PO (08:41)
[2022-01-29] MEDS: allopurinol 100 mg Tablet PO (08:41)
[2022-01-29] MEDS: guaiFENesin 600 mg Tablet PO ×2 (10:00→17:03)
[2022-01-29] MEDS: azithromycin 500 MG in sodium chloride 0.9% 250 ML 250 MG IV (10:00)
[2022-01-29 10:16] LABS: Basophils % 0.3 %; Eosinophils % 0.5 %; Hematocrit 37.9 % (42.0-52.0); Hemoglobin 11.9 g/dL (11.7-16.6); Lymphocytes # 1.2 10^3/uL (0.8-4.8); Mean Corpuscular HGB Conc 31.4 g/dL (30.0-36.0); Mean Corpuscular Hemoglobin 34.3 pg (28.0-34.0); Mean Corpuscular Volume 109.2 fl (80-94); Mean Platelet Volume 9.1 fL (7.4-10.4); Monocytes # 0.6 10^3/uL (0.2-0.9); Neutrophils # 5.89 10^3/uL (1.8-7.7); Neutrophils % 75.7 %; Nucleated Red Blood Cells % 0 %; Platelet Count 179 10^3/cmm (130-400); Red Blood Count 3.47 10^6/uL (4.1-5.3); Red Cell Distribution Width 13.5 % (12.1-15.1); White Blood Count 7.8 10^3/uL (4.0-10.0)
[2022-01-29 10:33] LABS: Anion Gap 16.5 (5-19); Blood Urea Nitrogen 36 mg/dL (8-23); Calcium 9.3 mg/dL (8.5-10.5); Carbon Dioxide 26 mmol/L (22-29); Chloride 100 mmol/L (98-107); Glucose 255 mg/dL (65-115); Osmolality Calculated 303 mOsm/kg (285-295); Potassium 4.5 mmol/L (3.5-5.1); Sodium 138 mmol/L (136-145)
--- NOTE | 2022-01-29 15:21 | P.PN_ITS ---
Subjective Subjective: Patient was seen and examined this morning, he has developed extensive expiratory wheezing, still pretty short of breath, we will start him on azithromycin as well as IV steroids. Will repeat a.m. chest x-ray, continue to monitor him for possible postviral bacterial superinfection. Blood culture final report is still pending. Medications: Medication Review Details: Generic Name Dose Route Start Last Admin Trade Name Freq PRN Reason Stop Dose Admin Allopurinol 100 mg 01/28/22 09:00 01/29/22 08:41 Allopurinol 100 Mg Tablet PO 100 mg DAILY LENARD Administration Benzonatate 200 mg 01/27/22 21:57 01/28/22 20:12 Benzonatate 100 Mg Capsule PO 200 mg Q6H PRN Administration COUGH Budesonide 0.5 mg 01/28/22 08:00 01/29/22 08:39 Budesonide 0.5 M g/2 Ml Neb INHALATION 0.5 mg BID.RESPIRATORY S CH Administration Bumetanide 2 mg 01/27/22 22:30 01/28/22 21:41 Bumetanide 0.25 Mg/Ml Sdv 10 Ml IVP 2 mg Q24H LENARD Administration Enoxaparin Sodium 40 mg 01/27/22 20:45 01/28/22 20:06 Enoxaparin 40 Mg /0.4 Ml Syringe SUBCUT 40 mg Q24H LENARD Administration Guaifenesin 600 mg 01/29/22 09:20 01/29/22 10:00 Guaifenesin 600 Mg Tablet PO 600 mg BID LENARD Administration Azithromycin 500 m g/ Sodium 250 mls @ 250 mls /hr 01/29/22 09:30 01/29/22 11:00 Chloride IV Infused Q24H LENARD Infusion Protocol Magnesium Oxide 400 mg 01/28/22 09:00 01/29/22 08:41 Magnesium Oxide 400 Mg Tablet PO 400 mg DAILY LENARD Administration Methylprednisolone Sodium Succinate 60 mg 01/29/22 09:30 01/29/22 13:54 Methylprednisolo ne Sod Succ 125 Mg /2 Ml Inj IVP 60 mg Q4H LENARD Administration Oseltamivir Phosph ate 75 mg 01/28/22 09:00 01/29/22 08:41 Oseltamivir Phos phate 75 Mg Capsul e PO 75 mg BID LENARD Administration Pantoprazole Sodiu m 40 mg 01/28/22 09:00 01/29/22 08:[address] 40 Mg Tablet PO 40 mg DAILY LENARD Administration Potassium Chloride 20 meq 01/28/22 09:00 01/29/22 08:41 Potassium Chlori de Er 20 Meq Table t PO 20 meq DAILY LENARD Administration Thiamine Mononitra te 100 mg 01/28/22 09:00 01/29/22 08:41 Thiamine 100 Mg Tablet PO 100 mg DAILY LENARD Administration Trazodone HCl 100 mg 01/28/22 21:00 01/28/22 21:42 Trazodone 100 Mg Tablet PO 100 mg BEDTIME LENARD Administration Vitals/I&O/Wt Last Vital Signs Temp 98.0 F 01/29/22 12:00 Pulse 96 01/29/22 12:00 Resp 18 01/29/22 12:00 BP 126/70 01/29/22 12:00 Pulse Ox 100 01/29/22 12:00 O2 Del Method 01/29/22 12:00 O2 Flow Rate 3 01/29/22 11:54 FiO2 45 01/29/22 03:22 01/29/22 01/29/22 01/29/22 06:59 14:59 22:59 Intake Total 200 / 1000 490 / 490 Output Total 500 / 500 Balance 200 / 1000 -10 / -10 Weight last 48 hrs Weight 131.542 kg Physical Exam Const: COMMON NORMALS: patient oriented x3 Resp: OTHER: Extensive bilateral expiratory wheezing Cardio: COMMON NORMALS: regular rate, regular rhythm, S1 normal heart sound present, S2 normal heart sound present, No gallops present (Cardio), No murmurs present (Cardio), No rub (Cardio) and Peripheral pulses 2+ throughout RATE: regular rate RHYTHM: regular rhythm HEART SOUNDS: S1 normal heart sound present and S2 normal heart sound present PERIPHERAL PULSES: Peripheral pulses 2+ throughout GI: COMMON NORMALS: Normal to inspection, nondistended, normoactive bowel sounds present, Soft to palpation, non-tender, No hepatosplenomegaly present and no masses AUSCULTATION: Yes normoactive bowel sounds PALPATION: Yes Soft to palpation and Yes No hepatosplenomegaly present RECTAL EXAM: Yes deferred Extremity: NARRATIVE EXTREMITY EXAM: Trace bilateral lower extremity pitting edema Neuro: COMMON NORMALS: patient oriented x3 Data 01/29/22 10:04 01/29/22 10:04 Micro: Microbiology 01/27/22 23:08 Gram Stain - Final Sputum - Expectorated Sputum Sputum Culture - Preliminary 01/27/22 16:28 Blood Culture - Preliminary Blood NEGATIVE TO DATE 01/27/22 16:20 Blood Culture - Preliminary Blood NEGATIVE TO DATE 01/27/22 23:08 MRSA Culture - Final Nose A&P Assessment and plan (1) Influenza: (2) Acute exacerbation of chronic obstructive airways disease: (3) Acute respiratory failure with hypoxia: (4) BMI 39.0-39.9,adult: (5) Acute exacerbation of CHF (congestive heart failure): Plan Acute on chronic hypoxia Related to influenza A Sepsis criteria met with fever, tachypnea, high lactic acid Septic bolus could not be given patient clinically does have fluid overloaded state I will be reluctant to give him IV fluids he needs Lasix along potassium supplement for now, Acute preserved ejection fraction heart failure exacerbation due to flu Request blood cultures Will start desonide, DuoNeb Tamiflu, he has received antibiotics in the ER I would not resume antibiotics Respiratory to assess and treat I would not add any antibiotics Check MRSA PCR Requested sputum culture No sign of sepsis or pneumonia No signs of PE Anticipating discharge within 48 hours Cardiac diet DVT prophylaxis on board Full code Attestations Medical Necessity Statement*: Patient is to be in hospital management of influenza. 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
[2022-01-29] MEDS: enoxaparin 40 mg/0.4 mL Syringe SUBCUT (19:59)
[2022-01-29] MEDS: trazodone 100 mg Tablet PO (19:59)
[2022-01-29] MEDS: benzonatate 100 mg Capsule 200 MG PO (20:09)
[2022-01-29] MEDS: acetaminophen 500 mg Tablet PO (20:09)
[2022-01-30] VITALS (13 sets, daily range): BP systolic 121–150; BP diastolic 53–73; PULSE 94–109; RESP 12–20; TEMP 36.5–36.7; O2SAT 87–98
[2022-01-30] MEDS: morphine IR 15 mg Tablet PO (00:09)
[2022-01-30] MEDS: ipratropium-albuterol 3 mL Neb INHALATION ×3 (01:01→08:41)
[2022-01-30 02:14] LABS: Hematocrit 34.1 % (42.0-52.0); Hemoglobin 10.6 g/dL (11.7-16.6); Lymphocytes # 0.2 10^3/uL (0.8-4.8); Lymphocytes % 2.5 %; Mean Corpuscular HGB Conc 31.1 g/dL (30.0-36.0); Mean Corpuscular Hemoglobin 33.5 pg (28.0-34.0); Mean Corpuscular Volume 107.9 fl (80-94); Mean Platelet Volume 9.3 fL (7.4-10.4); Monocytes # 0.1 10^3/uL (0.2-0.9); Monocytes % 1.9 %; Neutrophils # 5.96 10^3/uL (1.8-7.7); Neutrophils % 94.5 %; Nucleated Red Blood Cells % 0 %; Platelet Count 173 10^3/cmm (130-400); Red Blood Count 3.16 10^6/uL (4.1-5.3); Red Cell Distribution Width 13.3 % (12.1-15.1); White Blood Count 6.3 10^3/uL (4.0-10.0)
[2022-01-30 04:56] LABS: Blood Urea Nitrogen 50 mg/dL (8-23); Calcium 9.2 mg/dL (8.5-10.5); Carbon Dioxide 23 mmol/L (22-29); Chloride 100 mmol/L (98-107); Glucose 372 mg/dL (65-115); Osmolality Calculated 309 mOsm/kg (285-295); Sodium 135 mmol/L (136-145)
--- NOTE | 2022-01-30 05:00 | XR_ITS ---
WS: [id number] EXAMINATION: XR chest 1V portable [id number] REASON FOR EXAM: SOB COMPARISON: 01/27/2022. ORDER DATE: 01/30/2022 5:00 AM TECHNIQUE: A single, portable frontal chest x-ray was obtained. X-RAY FINDINGS: There is new developing infiltrate in the left lower lobe. Possible early small left pleural effusion . No Pneumothorax. Cardiomediastinal silhouette is unremarkable except for atherosclerotic aortic change.. No evidence f or pulmonary edema. Soft tissue and osseous structures are unremarkable. No tubes or lines are present. XR/XR chest 1V portable [id number] IMPRESSION: New infiltrate in the left lower lobe with possible small pleural effusion
[2022-01-30 05:08] LABS: Anion Gap 17.4 (5-19); Potassium 5.4 mmol/L (3.5-5.1)
[2022-01-30] MEDS: azithromycin 500 MG in sodium chloride 0.9% 250 ML 250 MG IV (07:57)
[2022-01-30] MEDS: magnesium oxide 400 mg tablet PO (07:57)
[2022-01-30] MEDS: guaiFENesin 600 mg Tablet PO (07:58)
[2022-01-30] MEDS: allopurinol 100 mg Tablet PO (07:58)
[2022-01-30] MEDS: thiamine 100 mg Tablet PO (07:58)
[2022-01-30] MEDS: pantoprazole DR 40 mg Tablet PO (07:58)
[2022-01-30] MEDS: oseltamivir phosphate 75 mg Capsule PO (07:58)
[2022-01-30] MEDS: budesonide 0.5 mg/2 mL Neb INHALATION (08:41)
--- NOTE | 2022-01-30 10:14 | PC.SOCIAL ---
Pg 2 IMM Explained to pt Pg 2 IMM. No questions voiced. Provided pt a copy. Initialed, dated, & timed a copy & placed in chart.
--- NOTE | 2022-01-30 11:05 | PM.DCS ---
Discharge Providers Date of Admission: 01/27/22 21:28 Date of Discharge: January 30, 2022 Attending Provider at Admission: Dee Mendez MD Attending Provider at Discharge: Zackary Cheng MD Primary Care Provider: Alvina Morton MD Diagnoses at Discharge Discharge Diagnosis (1) Influenza: Status: Acute (2) Acute exacerbation of chronic obstructive airways disease: Status: Acute (3) Acute respiratory failure with hypoxia: Status: Acute (4) BMI 39.0-39.9,adult: Status: Chronic (5) Acute exacerbation of CHF (congestive heart failure): Status: Acute Reason for Visit Reason for Visit: SOB/ COPD Hospital Course Hospital Course 76-year-old male with past medical history of heart failure with preserved ejection fraction COPD, on 2 to 3 L home oxygen usually uses oxygen at night, on AVAPS at night came in with chief complaint of worsening shortness of breath as well as productive cough, going on for the last few days.He was admitted for the management of sepsis possibly secondary to influenza, possible pneumonia ,acute COPD exacerbation. During the hospital stay patient was kept on steroids, duo nebs, Tamiflu, supplemental oxygen as needed, Initially was kept on Bumex IV 1 mg daily, but had to be discontinued because of worsening kidney function, Blood cultures were negative, MRSA PCR was negative, gram stain and cultures grew, few gram-positive cocci in pairs few gram-negative rods, CTA chest: No acute findings. Negative for pulmonary embolism. Subsequent x-ray chest: Had shown possibility of developing left lower lobe infiltrate, given the fact that the patient Wanted to go home, and stated that he has improved a lot, he was advised to stay for IV antibiotics, but he wanted to go home, he was discharged home on p.o. levofloxacin as well as doxycycline, along with Tamiflu and oral prednisone. Overall so far patient responded well to above medical management, he has been asked to follow his primary care physician in a week, with repeat BMP, Lasix has been kept on hold on discharge. Physical Exam Const: COMMON NORMALS: patient oriented x3 Resp: OTHER: bilateral expiratory wheezing Cardio: COMMON NORMALS: regular rate, regular rhythm, S1 normal heart sound present, S2 normal heart sound present, No gallops present (Cardio), No murmurs present (Cardio), No rub (Cardio) and Peripheral pulses 2+ throughout RATE: regular rate RHYTHM: regular rhythm HEART SOUNDS: S1 normal heart sound present and S2 normal heart sound present PERIPHERAL PULSES: Peripheral pulses 2+ throughout GI: COMMON NORMALS: Normal to inspection, nondistended, normoactive bowel sounds present, Soft to palpation, non-tender, No hepatosplenomegaly present and no masses AUSCULTATION: Yes normoactive bowel sounds PALPATION: Yes Soft to palpation and Yes No hepatosplenomegaly present RECTAL EXAM: Yes deferred Extremity: NARRATIVE EXTREMITY EXAM: Trace bilateral lower extremity pitting edema Neuro: COMMON NORMALS: patient oriented x3 Discharge Data Studies Completed and Pending Completed Studies During Hospitalization Category Date Time Status CTA chest [CT angio chest PE protcl [id number]] Stat Cat Scan 01/27/22 19:08 Completed XR chest 1V portable [id number] Routine Exams 01/30/22 05:00 Completed XR chest 1V portable [id number] Stat Exams 01/27/22 16:03 Completed Pending at discharge Category Date Time Status BMP [Basic Metabolic Panel] AM LABS Lab 01/31/22 04:00 Ordered Blood Culture Stat Lab 01/27/22 16:28 Results CBC Auto Diff [Complete Blood Count w/Auto] AM LABS Lab 01/31/22 04:00 Ordered Sputum Culture and Gram Stain Routine Lab 01/27/22 23:08 Results Radiology Impressions Chest CTA 01/27/22 19:08 IMPRESSION: No acute findings. Negative for pulmonary embolism. Chest X-Ray 01/30/22 05:00 IMPRESSION: New infiltrate in the left lower lobe with possible small pleural effusion Laboratory Results WBC 6.3 10^3/uL (4.0-10.0) 01/30/22 02:00 RBC 3.16 10^6/uL (4.1-5.3) L 01/30/22 02:00 Hgb 10.6 g/dL (11.7-16.6) L 01/30/22 02:00 Hct 34.1 % (42.0-52.0) L 01/30/22 02:00 MCV 107.9 fl (80-94) H 01/30/22 02:00 MCH 33.5 pg (28.0-34.0) 01/30/22 02:00 MCHC 31.1 g/dL (30.0-36.0) 01/30/22 02:00 RDW 13.3 % (12.1-15.1) 01/30/22 02:00 Plt Count 173 10^3/cmm (130-400) 01/30/22 02:00 MPV 9.3 fL (7.4-10.4) 01/30/22 02:00 Neut % (Auto) 94.5 % 01/30/22 02:00 Lymph % (Auto) 2.5 % 01/30/22 02:00 [place] % (Auto) 1.9 % 01/30/22 02:00 Eos % (Auto) 0.0 % 01/30/22 02:00 Baso % (Auto) 0.0 % 01/30/22 02:00 Neut # (Auto) 5.96 10^3/uL (1.8-7.7) 01/30/22 02:00 Lymph # (Auto) 0.2 10^3/uL (0.8-4.8) L 01/30/22 02:00 [place] # (Auto) 0.1 10^3/uL (0.2-0.9) L 01/30/22 02:00 Eos # (Auto) 0.0 10^3/uL (0.0-0.8) 01/30/22 02:00 Baso # (Auto) 0.0 10^3/uL (0.0-0.1) 01/30/22 02:00 Nucleated RBC % (auto) 0 % 01/30/22 02:00 Nucleated RBCs # 0.0 /100WBC 01/30/22 02:00 Specimen Type Arterial 01/27/22 16:15 Sample Site Brachial, right 01/27/22 16:15 ABG pH 7.41 (7.35-7.45) 01/27/22 16:15 ABG pCO2 43.1 mmHg (35-45) 01/27/22 16:15 ABG pO2 81.4 mmHg (80.0-100.0) 01/27/22 16:15 ABG HCO3 27.3 mmol/L (22-26) H 01/27/22 16:15 ABG Base Excess 2.3 mmol/L (-2.0-2.0) H 01/27/22 16:15 Gentry Test N/a 01/27/22 16:15 Hematocrit 36.2 % (42-52) L 01/27/22 16:15 Hgb O2 Saturation 95.8 % (95-100) 01/27/22 16:15 Carboxyhemoglobin 1.3 %THgb (0.4-20.1) 01/27/22 16:15 Methemoglobin 0.9 % (0.4-1.5) 01/27/22 16:15 Total Hemoglobin 11.8 g/dL (14-18) L 01/27/22 16:15 O2 Delivery Device Nc 01/27/22 16:15 O2 Liters/Min 5.0 % 01/27/22 16:15 FiO2 40.0 % 01/27/22 16:15 Celebrity Manager ID Gd 01/27/22 16:15 Sodium 135 mmol/L (136-145) L 01/30/22 04:26 Potassium 5.4 mmol/L (3.5-5.1) H 01/30/22 04:26 Chloride 100 mmol/L (98-107) 01/30/22 04:26 Carbon Dioxide 23 mmol/L (22-29) 01/30/22 04:26 Anion Gap 17.4 (5-19) 01/30/22 04:26 BUN 50 mg/dL (8-23) H 01/30/22 04:26 Creatinine 1.8 mg/dL (0.7-1.2) H 01/30/22 04:26 GFR Calculation Not Reportable 01/30/22 04:26 Glucose 372 mg/dL (65-115) H 01/30/22 04:26 Calculated Osmolality 309 mOsm/kg (285-295) H 01/30/22 04:26 Lactic Acid 2.1 mmol/L (0.5-2.2) 01/27/22 16:20 Lactic Acid (Sepsis) 2.4 mmol/L (0.5-2.2) H 01/27/22 18:45 Lactate 4.2 mmol/L (0.5-2.2) H* 01/28/22 01:58 Calcium 9.2 mg/dL (8.5-10.5) 01/30/22 04:26 Phosphorus 2.6 mg/dL (2.5-4.5) 01/28/22 01:58 Magnesium 1.9 mg/dL (1.7-2.3) 01/28/22 01:58 Total Bilirubin 0.5 mg/dL (0.15-1.2) 01/27/22 16:20 AST 33 U/L (0-40) 01/27/22 16:20 ALT 26 U/L (0-41) 01/27/22 16:20 Alkaline Phosphatase 84 U/L (40-130) 01/27/22 16:20 Troponin T Baseline 35 ng/L (0-15) H 01/27/22 16:20 Troponin T 120 Minute 29.69 ng/L (0-15) H 01/27/22 18:45 Delta Troponin T -5.31 ABS# (0-10) L 01/27/22 18:45 Troponin T Hi Sens 6Hr 25.50 ng/L (0-15) H 01/27/22 21:30 Troponin T Hi Sens 6Hr Delta -9.50 ng/L (0-12) L 01/27/22 21:30 C-Reactive Protein 43.6 mg/L (0.0-4.9) H 01/28/22 01:58 NT-Pro-B Natriuret Pep 144 pg/mL (0-450) 01/27/22 21:30 Total Protein 6.7 g/dL (6.6-8.7) 01/27/22 16:20 Albumin 3.8 g/dL (3.5-5.2) 01/27/22 16:20 Globulin 2.9 g/dL (1.3-4.6) 01/27/22 16:20 Procalcitonin 0.16 ng/mL (0-0.5) 01/27/22 21:30 Nasal Influ A H1 2008 PCR Detected (NOT DETECT) A 01/27/22 16:55 Adenovirus (PCR) Not detected (NOT DETECT) 01/27/22 16:55 C. pneumoniae DNA (PCR) Not detected (NOT DETECT) 01/27/22 16:55 Coronavirus 229E (PCR) Not detected (NOT DETECT) 01/27/22 16:55 Human Metapneumovir PCR Not detected (NOT DETECT) 01/27/22 16:55 Influenza A (H1) PCR Not detected (NOT DETECT) 01/27/22 16:55 Influenza A (H3) PCR Not detected (NOT DETECT) 01/27/22 16:55 Influenza Type A (PCR) Detected (NOT DETECT) A 01/27/22 16:55 Influenza Type B (PCR) Not detected (NOT DETECT) 01/27/22 16:55 M. pneumoniae (PCR) Not detected (NOT DETECT) 01/27/22 16:55 Parainfluenza 1 (PCR) Not detected (NOT DETECT) 01/27/22 16:55 Parainfluenza 2 (PCR) Not detected (NOT DETECT) 01/27/22 16:55 Parainfluenza 3 (PCR) Not detected (NOT DETECT) 01/27/22 16:55 Parainfluenza 4 (PCR) Not detected (NOT DETECT) 01/27/22 16:55 RSV Type A (PCR) Not detected (NOT DETECT) 01/27/22 16:55 RSV Type B (PCR) Not detected (NOT DETECT) 01/27/22 16:55 Entero/Rhino (PCR) Not detected (NOT DETECT) 01/27/22 16:55 SARS-CoV-2 (PCR) Not detected (NOT DETECT) 01/27/22 16:55 Vitals Last Vital Signs Temp 97.8 F 01/30/22 08:00 Pulse 109 H 01/30/22 08:49 Resp 18 01/30/22 08:49 BP 140/66 01/30/22 08:00 Pulse Ox 90 01/30/22 10:38 O2 Del Method 01/30/22 08:49 O2 Flow Rate 3 01/30/22 10:38 FiO2 45 01/30/22 04:28 Discharge Plan Discharge Patient Disposition: Home Condition: Stable Prescriptions: New benzonatate 100 mg Capsule 200 mg PO Q6H PRN (Reason: Cough) 7 Days Qty: 20 0RF oseltamivir 75 mg Capsule 75 mg PO BID 3 Days Qty: 6 0RF Mucinex 600 mg Tablet Extended Release 12hr 600 mg PO BID 7 Days Qty: 14 0RF prednisone 50 mg tablet 50 mg PO DAILY 5 Days Qty: 5 0RF levofloxacin 750 mg tablet 750 mg PO Q48H 10 Days Qty: 5 0RF doxycycline monohydrate 100 mg capsule 100 mg PO BID 7 Days Qty: 14 0RF Continued ketoconazole 2 % cream 1 applic topical BID Qty: 30 6RF Rx Instructions: Apply to red, scaly areas on face 1-2 times daily ketoconazole 2 % shampoo 1 applic topical .2x weekly Qty: 120 6RF Rx Instructions: Lather into scalp 2-3 times weekly. Allow to sit on scalp for 5 minutes before rinsing. tramadol 50 mg tablet 50 mg PO Q6H PRN (Reason: Pain) omeprazole 20 mg Capsule,Delayed Release(Dr/Ec) 20 mg PO DAILY trazodone 100 mg Tablet 100 mg PO QPM allopurinol 100 mg Tablet 100 mg PO DAILY Qty: 30 0RF thiamine mononitrate (vit B1) [Vitamin B-1 (mononitrate)] 100 mg Tablet 100 mg PO DAILY Qty: 30 0RF Spiriva with HandiHaler 18 mcg capsule, w/inhalation device 1 cap inhalation DAILY Qty: 20 0RF Rx Instructions: puncture 1 cap using device; one dose = 2 inhalations simvastatin 20 mg Tablet 10 mg PO BEDTIME meloxicam 15 mg tablet 15 mg PO DAILY cyanocobalamin (vitamin B-12) [Vitamin B-12] 1,000 mcg Tablet 1,000 mcg PO DAILY cholecalciferol (vitamin D3) [Vitamin D3] 50 mcg (2,000 unit) Capsule 50 mcg PO DAILY magnesium oxide 400 mg magnesium Capsule 400 mg PO DAILY Wixela Inhub 250-50 mcg/dose Blister With Device 1 inh INHALATION BID albuterol sulfate 90 mcg/actuation Hfa Aerosol Inhaler 2 puff INHALATION Q4H PRN (Reason: Shortness Of Breath Or Wheezing) Held potassium chloride 20 mEq Tablet Extended Release 20 meq PO DAILY Hold Instructions: Resume on 02/02/22. furosemide 40 mg Tablet 40 mg PO BID Hold Instructions: Resume on 02/02/22. Discharge Orders: Discharge Order (Routine); Ordered 01/30/22 Ordered By: Zackary Cheng Other Ambulatory Orders: Basic Metabolic Panel (Routine) Timeframe: 1 Week Facility: [facility] - Location: Lab - Main Lab Ordered By: Zackary Cheng DME: Oxygen (Order) Location: None Selected Ordered By: Zackary Cheng Referrals: Alvina Morton MD [Primary Care Provider] - 02/05/22 2:00 pm (Please keep previous appointment. ) Patient Instructions: Doxycycline (By mouth), Prednisone (By mouth), Levofloxacin (By mouth), Oseltamivir (By mouth), Heart Failure (GEN), Influenza (GEN), Using Oxygen at Home (GEN), Hypoxia (GEN), Opioid Safety Discharge Attestations Time Spent in Discharge Care*: less than 30 min Quality Metrics Clinical Quality Measures [ No reported AMI, CVA or VTE this stay] Coding Level of Care Code Acute Chg FW DC note Diagnoses Influenza J11.1 Acute exacerbation of chronic obstructive airways disease J44.1 Acute respiratory failure with hypoxia J96.01 BMI 39.0-39.9,adult Z68.39 Acute exacerbation of CHF (congestive heart failure) I50.9
--- NOTE | 2022-01-30 14:18 | PC.RESP ---
Case Management nurse called to get patient's settings for his home bipap machine. AVAPS-AB epap 15-25 cmH2O ps 2-15 cmH2O max press 30 VT 570 rate 6 itime 1.2 with 6 lpm bled in
== END 2022-01-30 13:39 | disposition home or self-care (01) | DRG 291 ==
LOC: ER 20:39 → MEDSURG 21:28
PROVIDERS: Admitting Provider Internal Medicine; Emergency Provider Emergency Medicine; PCP Family Medicine; Visit Provider Internal Medicine
DX: I50.33 Acute on chronic diastolic (congestive) heart failure (principal); J96.21 Acute and chronic respiratory failure with hypoxia; J44.1 Chronic obstructive pulmonary disease with (acute) exacerbation; Z68.41 Body mass index [BMI] 40.0-44.9, adult; J10.1 Influenza due to other identified influenza virus with other respiratory manifestations; I11.0 Hypertensive heart disease with heart failure; G47.30 Sleep apnea, unspecified; Z87.891 Personal history of nicotine dependence; Z99.81 Dependence on supplemental oxygen
CPT/HCPCS: 36415; 36600; 71045; 71275; 80048; 80053; 82805; 83605; 83735; 83880; 84100; 84145; 84484; 85025; 86140; 87040; 87070; 87205; 87486; 87581; 87633; 87641; 93005; 94640; 94660; 94664; 94760; 96365; 96367; 96372; 96375; 99285; J0456; J0696; J1650; J2930; J3490; J7050; J7626; Q9967

== ENCOUNTER → 2022-02-04 09:08 | Outpatient (BNVA) | payer OTHER, SELFPAY | PROVIDERS: PCP Family Medicine; Visit Provider Podiatrist Foot & Ankle Surgery | DX: I73.9 Peripheral vascular disease, unspecified (principal); L60.8 Other nail disorders; L60.3 Nail dystrophy | CPT/HCPCS: 11721 ==

== ENCOUNTER → 2022-04-28 14:43 | Outpatient (BNVA) | payer OTHER, SELFPAY | PROVIDERS: PCP Family Medicine; Visit Provider Internal Medicine Pulmonary Disease | DX: J44.9 Chronic obstructive pulmonary disease, unspecified (principal); Z87.891 Personal history of nicotine dependence; Z99.81 Dependence on supplemental oxygen; I50.9 Heart failure, unspecified | CPT/HCPCS: 99204 ==

== ENCOUNTER 2022-05-21 15:52 | Emergency (ER) | payer OTHER, SELFPAY ==
[2022-05-21 15:59] VITALS: BP 151/84; PULSE 83; RESP 22; TEMP 37.2; O2SAT 96; BMI 44.1
--- NOTE | 2022-05-21 16:03 | ECG_ITS ---
[facility] Test Date: 2022-05-21 Pat Name: Arabella Lutz Department: Room: Gender: Male Beta Tester: : 1945 Requested By: Immanuel Donnelly Order Number: [id number] Jameson MD: Loan Hooks M.D. Measurements Intervals [place] Rate: 94 P: 83 DC: 205 QRS: -66 QRSD: 103 T: 51 QT: 352 QTc: 441 Interpretive Statements SINUS RHYTHM LEFT AXIS DEVIATION [QRS AXIS < -30] LOW QRS VOLTAGE IN PRECORDIAL LEADS [QRS DEFLECTION < 1.0 mV IN CHEST LEADS] POSSIBLE ANTERIOR MYOCARDIAL INFARCTION , PROBABLY OLD [30 ms Q WAVE IN V3/V4, OR R < 0.2 mV IN V4] Compared to ECG 01/27/2022 22:17:00 No significant changes Electronically Signed On 05-21-2022 23:54:47 CDT by Loan Hooks M.D. [email or web address]
[2022-05-21 17:47] LABS: Basophils % 0.5 %; Eosinophils # 0.3 10^3/uL (0.0-0.8); Eosinophils % 3.7 %; Hematocrit 40.6 % (42.0-52.0); Hemoglobin 13.3 g/dL (11.7-16.6); Lymphocytes # 1.5 10^3/uL (0.8-4.8); Lymphocytes % 18.5 %; Mean Corpuscular HGB Conc 32.8 g/dL (30.0-36.0); Mean Corpuscular Hemoglobin 33.1 pg (28.0-34.0); Mean Platelet Volume 9.6 fL (7.4-10.4); Monocytes # 0.8 10^3/uL (0.2-0.9); Monocytes % 9.8 %; Neutrophils # 5.21 10^3/uL (1.8-7.7); Neutrophils % 66.4 %; Nucleated Red Blood Cells % 0 %; Platelet Count 217 10^3/cmm (130-400); Red Blood Count 4.02 10^6/uL (4.1-5.3); Red Cell Distribution Width 12.6 % (12.1-15.1); White Blood Count 7.9 10^3/uL (4.0-10.0)
[2022-05-21 18:07] LABS: Alanine Aminotransferase 28 U/L (0-41); Alkaline Phosphatase 69 U/L (40-130); Anion Gap 18.3 (5-19); Aspartate Amino Transferase 33 U/L (0-40); Blood Urea Nitrogen 18 mg/dL (8-23); Carbon Dioxide 26 mmol/L (22-29); Chloride 91 mmol/L (98-107); Globulin 2.8 g/dL (1.3-4.6); Glucose 310 mg/dL (65-115); Lipase 57 U/L (13-60); Osmolality Calculated 286 mOsm/kg (285-295); Potassium 4.3 mmol/L (3.5-5.1); Sodium 131 mmol/L (136-145); Total Bilirubin 0.4 mg/dL (0.15-1.2); Total Protein 6.8 g/dL (6.6-8.7)
[2022-05-21 20:43] VITALS: BP 157/97; PULSE 88; RESP 18; O2SAT 94
--- NOTE | 2022-05-21 20:43 | XRR_ITS ---
PROCEDURE INFORMATION: Exam: XR Abdomen Exam date and time: 05/21/2022 8:54 PM Age: 77 years old Clinical indication: Bloating; Additional info: Abd bloating TECHNIQUE: Imaging protocol: Radiologic exam of the abdomen. Views: 2 Views. Upright and supine views. COMPARISON: CR (CHEST, ) 01/27/2022 5:05 PM FINDINGS: Lungs: The lungs are clear. Gastrointestinal tract: Scattered gas and stool within bowel. No generalized obstruction or ileus. Intraperitoneal space: No free air. Several surgical clips in the right upper quadrant. Bones/joints: Incidental thoracic and lumbar osteophytes. XR/XR acute abdomen series [id number] IMPRESSION: 1. No bowel obstruction or ileus. 2. Lungs clear.
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
[2022-05-21 21:24] LABS: Add Urine Microscopic? NO; Charge for UA Resulting for Rev
[2022-05-21 21:27] LABS: Urine Appearance Clear (CLEAR); Urine Color Yellow (Yellow)
[2022-05-21 21:28] LABS: Bilirubin Urine Neg (Negative); Blood Urine Neg (Negative); Glucose Urine UA 4+ (Normal); Ketones Urine Negative (Negative); Leukocyte Esterase Urine Negative (Negative); Nitrate Urine Negative (Negative); Protein Urine Neg (Negative); Specific Gravity, Urine 1.015 (1.005-1.030); Sulfosalicylic Acid Urine Negative (Negative); Urobilinogen Urine Neg (Negative); pH Urine 8 (5-7)
[2022-05-21] MEDS: metroNIDAZOLE 500 MG Tablet PO (21:43)
[2022-05-21] MEDS: ciprofloxacin 500 mg Tablet PO (21:43)
[2022-05-21 21:54] VITALS: BP 145/78; PULSE 84; RESP 18; O2SAT 95
== END 2022-05-21 21:54 | disposition home or self-care (01) ==
PROVIDERS: Emergency Provider Nurse Practitioner Family; PCP Family Medicine
DX: K52.9 Noninfective gastroenteritis and colitis, unspecified (principal); I11.0 Hypertensive heart disease with heart failure; I50.9 Heart failure, unspecified; J44.9 Chronic obstructive pulmonary disease, unspecified; E78.5 Hyperlipidemia, unspecified; Z87.891 Personal history of nicotine dependence
CPT/HCPCS: 36415; 74022; 80053; 81003; 83690; 85025; 93005; 99285

== ENCOUNTER → 2022-06-17 11:18 | Outpatient (BNVA) | payer OTHER, SELFPAY | PROVIDERS: PCP Family Medicine; Visit Provider Podiatrist Foot & Ankle Surgery | DX: E11.8 Type 2 diabetes mellitus with unspecified complications (principal); L60.3 Nail dystrophy; L60.8 Other nail disorders; I73.9 Peripheral vascular disease, unspecified | CPT/HCPCS: 11721 ==

== ENCOUNTER → 2022-08-19 11:16 | Outpatient (BNVA) | payer OTHER, SELFPAY | PROVIDERS: PCP Family Medicine; Visit Provider Podiatrist Foot & Ankle Surgery | DX: I73.9 Peripheral vascular disease, unspecified (principal); L60.8 Other nail disorders; L60.3 Nail dystrophy; L84 Corns and callosities; E11.42 Type 2 diabetes mellitus with diabetic polyneuropathy | CPT/HCPCS: 11055; 11721 ==

== ENCOUNTER → 2022-12-10 12:48 | Outpatient (BNVA) | payer OTHER, SELFPAY | PROVIDERS: PCP Family Medicine; Visit Provider Podiatrist Foot & Ankle Surgery | DX: E11.42 Type 2 diabetes mellitus with diabetic polyneuropathy (principal); L60.3 Nail dystrophy; L60.8 Other nail disorders; I73.9 Peripheral vascular disease, unspecified | CPT/HCPCS: 99213 ==

== ENCOUNTER 2024-05-14 10:30 | Emergency (ER) | payer OTHER, MEDICARE, SELFPAY ==
[2024-05-14 10:37] VITALS: BP 148/69; PULSE 64; RESP 17; TEMP 36.4; O2SAT 97; BMI 38.0
--- NOTE | 2024-05-14 10:52 | XRR_ITS ---
PROCEDURE INFORMATION: Exam: XR Right Foot Exam date and time: 05/14/2024 11:13 AM Age: 79 years old Clinical indication: Other: Infected third right toe pressure sore; Patient has a home nurse that was trimming his toes yesterday. They had not been trimmed since October. His home health nurse found puss pocket on his 2nd digit on his right foot. Patient wanted to wait until he could get to [place] to the [place] next Thursday, but his daughter made him call and they told him to get it seen immediately. Patient states he is not in pain, and that he is a diabetic. TECHNIQUE: Imaging protocol: Radiologic exam of the right foot. Views: 1 or 2 views. COMPARISON: No relevant prior studies available. FINDINGS: Bones/joints: Calcaneal bony spurring. Degenerative changes are seen in the midfoot. There is no fracture or joint dislocation. Soft tissues: Normal. Vasculature: Diffuse atherosclerotic changes are seen. XR/XR foot RT 2V [id number] IMPRESSION: 1. No acute osseous abnormality 2. Calcaneal bony spurring. 3. Additional findings as described.
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
--- NOTE | 2024-05-14 11:18 | PC.PHAR ---
[facility] is [facility], [facility] however they never are there on the weekends. patient had list with him, took a copy and updated it off that
--- NOTE | 2024-05-14 14:09 | PC.NURSE ---
The patient put his call light on at approximately 1320. public health technician went in to see what he could help the patient with. Patient told the public health technician he was leaving and that he was done waiting and he wanted out of here. The public health technician came and found me and told me what the patient said and I went to ER 6. I asked the patient what was going on and he stated I have been her since 1030 and I should have already been given antibiotics and had some ointment put on my toe and sent out of here. I am leaving and going to [place]. I told the patient that if he would give me one minute so that I could go talk to the doctor, I would be right back. I spoke with Dr. Brand, he told me that he literally had just printed the discharge instructions (they were timed 1313 on 05/14/24) and he stated that he would go talk to the patient and that I could get his pill of Bactrim to give him and we could discharge him. [facility] then [facility], pulled the pill of Bactrim and got some water. I walked up behind Dr. Brand in the room and the patient was telling the doctor to shut up , he also stated I'm leaving, I don't care what you say . Patient was speaking very rudely to Dr. Brand telling him he was not a good doctor and that he was taking his sweet time in getting him medicine. Dr. Brand was very patiently and politely trying to explain to the patient that the ER was full and that his discharge was printed and we were doing the best we could. The patient told Dr. Brand shut up I don't want to hear it, I'm leaving . Dr. Brand then took the patient's discharge instructions and instructed the patient that he would be leaving [place] and he would not be getting any antibiotics due to his poor behavior. Dr. Brand did tell the patient that he was welcome to return to the ER if he still needed help but that he might come with a better attitude.
== END 2024-05-14 14:44 | disposition home or self-care (01) ==
PROVIDERS: Emergency Provider Emergency Medicine; PCP Family Medicine
DX: S90.424A Blister (nonthermal), right lesser toe(s), initial encounter (principal); L03.031 Cellulitis of right toe; Z87.891 Personal history of nicotine dependence; J44.9 Chronic obstructive pulmonary disease, unspecified; E78.5 Hyperlipidemia, unspecified; I10 Essential (primary) hypertension; X58.XXXA Exposure to other specified factors, initial encounter
CPT/HCPCS: 73620; 99283

== ENCOUNTER → 2024-06-21 13:09 | Outpatient (BNVA) | payer OTHER, SELFPAY | PROVIDERS: PCP Family Medicine; Visit Provider Podiatrist Foot & Ankle Surgery | DX: E11.8 Type 2 diabetes mellitus with unspecified complications (principal); E11.42 Type 2 diabetes mellitus with diabetic polyneuropathy; L60.3 Nail dystrophy; L60.8 Other nail disorders; I73.9 Peripheral vascular disease, unspecified; L84 Corns and callosities | CPT/HCPCS: 11055; 11721 ==

== ENCOUNTER 2024-07-02 21:47 | Inpatient (IN) | payer OTHER, SELFPAY ==
[2024-07-02 21:57] VITALS: BP 99/62; PULSE 95; RESP 18; TEMP 36.6; O2SAT 97; BMI 38.0
[2024-07-02 22:47] LABS: Basophils % 0.4 %; Eosinophils # 0.1 10^3/uL (0.0-0.8); Eosinophils % 1.2 %; Hematocrit 36.8 % (37-53); Lymphocytes % 10.8 %; Mean Corpuscular HGB Conc 31.5 g/dL (30-55); Mean Corpuscular Hemoglobin 28.2 pg (27-33); Mean Corpuscular Volume 89.3 fl (82-101); Monocytes # 0.7 10^3/uL (0.2-0.9); Monocytes % 7.7 %; Neutrophils # 7.38 10^3/uL (1.8-7.7); Neutrophils % 78.4 %; Nucleated Red Blood Cells % 0 %; Platelet Count 290 10^3/cmm (157-399); Red Blood Count 4.12 10^6/uL (3.85-5.65); Red Cell Distribution Width 13.6 % (12.1-15.1); White Blood Count 9.41 10^3/uL (3.29-11.43)
[2024-07-02 22:51] LABS: Anion Gap 15.6 (5-19); Blood Urea Nitrogen 38 mg/dL (8-23); Calcium 11.6 mg/dL (8.5-10.5); Carbon Dioxide 28 mmol/L (22-29); Chloride 92 mmol/L (98-107); Creatinine Clr Calc Pharmacy 48.7995; Glucose 94 mg/dL (65-115); Lipase 44 U/L (13-60); Osmolality Calculated 281 mOsm/kg (285-295); Potassium 4.6 mmol/L (3.5-5.1); Sodium 131 mmol/L (136-145)
--- NOTE | 2024-07-02 23:18 | CTR_ITS ---
PROCEDURE INFORMATION: Exam: CT Chest With Contrast; Diagnostic Exam date and time: 07/02/2024 11:56 PM Age: 79 years old Clinical indication: Abdominal pain; Shortness of breath; Other: N/a; Prior surgery; Surgery date: 6+ months; Surgery type: Gb; C/O general weakness with SOB and epigastric pain. Currently under treatment for hepatic cancer. History of copd. ; Additional info: HX cancer, abd and chest pain TECHNIQUE: Imaging protocol: Diagnostic computed tomography of the chest with contrast. Radiation optimization: All CT scans at this facility use at least one of these dose optimization techniques: automated exposure control; mA and/or kV adjustment per patient size (includes targeted exams where dose is matched to clinical indication); or iterative reconstruction. Contrast material: OMNI 350; Contrast volume: 60 ml; Contrast route: INTRAVENOUS (IV); COMPARISON: CT angio chest PE protcl [id number] 01/27/2022 7:49 PM RADIATION DOSE METRICS: Total DLP (mGy-cm): 1523.71 FINDINGS: Lungs: Unremarkable. No consolidation. No masses. Pleural spaces: Unremarkable. No pneumothorax. No pleural effusion. Heart: Unremarkable. No cardiomegaly. No pericardial effusion. Lymph nodes: Unremarkable. No enlarged lymph nodes. Vasculature: Unremarkable. No aortic aneurysm. Bones/joints: Unremarkable. No acute fracture. Soft tissues: Unremarkable. PROCEDURE INFORMATION: Exam: CT Abdomen And Pelvis With Contrast Exam date and time: 07/02/2024 11:56 PM Age: 79 years old Clinical indication: Abdominal pain; Shortness of breath; Other: N/a; Prior surgery; Surgery date: 6+ months; Surgery type: Gb; C/O general weakness with SOB and epigastric pain. Currently under treatment for hepatic cancer. History of copd. ; Additional info: HX cancer, abd and chest pain TECHNIQUE: Imaging protocol: Computed tomography of the abdomen and pelvis with contrast. Radiation optimization: All CT scans at this facility use at least one of these dose optimization techniques: automated exposure control; mA and/or kV adjustment per patient size (includes targeted exams where dose is matched to clinical indication); or iterative reconstruction. Contrast material: OMNI 350; Contrast volume: 60 ml; Contrast route: INTRAVENOUS (IV); COMPARISON: CR XR acute abdomen series [id number] 05/21/2022 8:54 PM RADIATION DOSE METRICS: Total DLP (mGy-cm): 1523.71 FINDINGS: Liver: Extensive presumed metastatic disease with innumerable low-density rim enhancing lesions, not present on prior study of 01/27/2022. Gallbladder and biliary ducts: Normal. No calcified stones. No ductal dilation. Pancreas: Normal. No ductal dilation. Spleen: Normal. No splenomegaly. Adrenal glands: Normal. No mass. Kidneys and ureters: Benign-appearing renal cysts.. No hydronephrosis. Stomach and bowel: Unremarkable. No obstruction. No mucosal thickening. Appendix: No evidence of appendicitis. Vasculature: 4.6 x 4.1 cm infrarenal abdominal aortic aneurysm. Lymph nodes: Very bulky retroperitoneal adenopathy. Urinary bladder: Unremarkable as visualized. Reproductive: Unremarkable as visualized. Bones/joints: Diffuse degenerative change spine. No acute fracture. CT/CT chest abdpel w/*[id number] IMPRESSION: No acute findings. IMPRESSION: Interval development of widespread hepatic metastatic disease and bulky retroperitoneal adenopathy. Given the distribution and appearance, a colonic primary is felt most likely. Other GI source would be high in the differential. Infrarenal abdominal aortic aneurysm.
--- NOTE | 2024-07-02 23:18 | CTR_ITS ---
PROCEDURE INFORMATION: Exam: CT Neck With Contrast Exam date and time: 07/03/2024 12:01 AM Age: 79 years old Clinical indication: Dysphagia / difficulty swallowing; C/O throat pain with dysphagia; Additional info: Pain in throat, trouble swallowing. CA HX TECHNIQUE: Imaging protocol: Computed tomography of the neck with contrast. Radiation optimization: All CT scans at this facility use at least one of these dose optimization techniques: automated exposure control; mA and/or kV adjustment per patient size (includes targeted exams where dose is matched to clinical indication); or iterative reconstruction. Contrast material: OMNI 350; Contrast volume: 40 ml; Contrast route: INTRAVENOUS (IV); COMPARISON: CT chest abdpel w/*[id number] 07/02/2024 11:56 PM RADIATION DOSE METRICS: Total DLP (mGy-cm): 261.73 FINDINGS: Salivary glands: Normal. Glands are normal in size. Pharynx: See Bones/joints finding. Larynx: Unremarkable. Epiglottis is normal. Thyroid: Normal. No enlarged or calcified nodules. Trachea: Visualized trachea is unremarkable. Lungs: Unremarkable as visualized. Lymph nodes: Right upper thoracic inlet 10 mm nonspecific prominent lymph node, similar to prior exam dating back to 01/27/2022. Bones/joints: Multilevel bridging productive degenerative bridging degenerative changes throughout the spine which somewhat diffusely impinge on the posterior aspect of the pharynx and esophagus, barium esophagram could further characterize this. Soft tissues: Unremarkable. No significant soft tissue swelling. CT/CT neck w con* [id number] IMPRESSION: 1. Negative for soft tissue mass or fluid collection. 2. Multilevel bridging productive degenerative bridging degenerative changes throughout the spine which somewhat diffusely impinge on the posterior aspect of the pharynx and esophagus, barium esophagram could further characterize this. 3. Right upper thoracic inlet 10 mm nonspecific prominent lymph node, similar to prior exam dating back to 01/27/2022.
[2024-07-02 23:22] LABS: Alanine Aminotransferase 15 U/L (0-41); Albumin Level 3.4 g/dL (3.5-5.2); Alkaline Phosphatase 260 U/L (40-130); Aspartate Amino Transferase 48 U/L (0-40); C Reactive Protein 165.4 mg/L (0.0-4.9); Globulin 3.9 g/dL (1.3-4.6); Total Bilirubin 0.7 mg/dL (0.15-1.2); Total Protein 7.3 g/dL (6.6-8.7)
[2024-07-02 23:39] LABS: INR 1.07 (0.8-1.2)
[2024-07-03] VITALS (59 sets, daily range): BP systolic 92–144; BP diastolic 50–85; PULSE 82–157; RESP 10–33; TEMP 36.6; O2SAT 90–98; BMI 37.8
[2024-07-03] MEDS: iohexol 350 mg/mL 500 mL Btl (per mL) IV (00:01)
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
[2024-07-03] MEDS: sodium chloride 0.9% 1,000 ML 999 ML IV (01:18)
[2024-07-03] MEDS: oxyCODONE-APAP 5-325 mg Tablet 2 TAB PO (01:50)
--- NOTE | 2024-07-03 02:17 | PC.NURSE ---
pt ambulated down hallway and back with walker without difficulty. notified
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
--- NOTE | 2024-07-03 04:35 | PC.NURSE ---
pt declined gown. pt provided hospital bed. rt consulted about sleeping machine. pt to contact daughter about parts for sleeping machine.
[2024-07-03] MEDS: pantoprazole 40 mg SDV IVP ×2 (04:57→17:18)
[2024-07-03] MEDS: dextrose 5%-sod chloride 0.9% 1,000 ML 125 ML IV (04:57)
[2024-07-03] MEDS: heparin 5,000 unit/mL INJ 1 mL 5000 UNIT SUBCUT ×2 (04:57→17:17)
[2024-07-03 07:22] LABS: Glucose Point of Care 119 mg/dL (70-110)
[2024-07-03 08:08] LABS: Bilirubin Urine Negative (Negative); Blood Urine Negative (Negative); Glucose Urine UA 2+ (Normal); Ketones Urine Negative (Negative); Leukocyte Esterase Urine Negative (Negative); Nitrate Urine Negative (Negative); Protein Urine Negative (Negative); Specific Gravity, Urine 1.029 (1.005-1.030); Urine Appearance Clear (CLEAR); Urine Color Yellow (Yellow); pH Urine 5.5 (5-7)
[2024-07-03 08:13] LABS: Add Urine Microscopic? YES; Bacteria Urine None Seen /hpf; Hyaline Casts Urine 2.46 /lpf; RBC Urine 0-2 /hpf (0-2); Squamous Epithelial Cell Urine 0-5 /hpf (0-5); WBC Urine 0-5 /hpf (0-5)
[2024-07-03 08:28] LABS: Carcinoembryonic Antigen 2.3 ng/mL (0.0-4.7)
[2024-07-03 08:39] LABS: Lactate Dehydrogenase 636 U/L (135-225)
--- NOTE | 2024-07-03 09:36 | P.PN_ITS ---
Subjective 2 Subjective: Patient was seen this morning, currently alert oriented x 3, following all commands, he denies any nausea, no vomiting, does report at times intermittent dysphagia, he tells me that it at times can become so severe that he has to cough up the food that he is eating, but he tells me that is intermittent it really does not happen with liquids it typically occurs with solids, denies any odynophagia, denies any globus sensation, denies any history of muscle spasms, Vitals/I&O/Wt Last Vital Signs Temp 97.8 F 07/02/24 21:57 Pulse 82 07/03/24 09:17 Resp 16 07/03/24 06:46 BP 101/53 07/03/24 09:17 Pulse Ox 95 07/03/24 09:17 O2 Del Method Room Air 07/03/24 09:17 O2 Flow Rate 2 07/03/24 07:13 07/02/24 07/03/24 07/03/24 22:59 06:59 14:59 Intake Total 1000 / 1000 Output Total 450 / 450 Balance 550 / 550 Weight last 48 hrs Weight 113.398 kg Physical Exam 2 Const: COMMON NORMALS: no acute distress and patient oriented x3 Resp: COMMON NORMALS: normal respiratory effort, No retractions, No use of accessory muscles and clear to auscultation bilaterally AUSCULTATION: clear to auscultation bilaterally Cardio: COMMON NORMALS: regular rate, regular rhythm, S1 normal heart sound present and S2 normal heart sound present RATE: regular rate RHYTHM: r egular rhythm HEART SOUNDS: S1 normal heart sound present and S2 normal heart sound present GI: COMMON NORMALS: Normal to inspection, nondistended, normoactive bowel sounds present and non-tender Extremity: COMMON NORMALS: no pedal edema Neuro: COMMON NORMALS: patient oriented x3 Psych: COMMON NORMALS: mental status grossly normal Data 07/02/24 22:43 07/02/24 22:27 Micro: Microbiology 07/03/24 07:35 Blood Culture - Preliminary Blood SPECIMEN COLLECTED 07/03/24 07:47 Blood Culture - Preliminary Blood SPECIMEN COLLECTED A&P Assessment and plan (1) Dysphagia: (2) Metastatic disease: (3) Liver lesion: (4) Retroperitoneal lymphadenopathy: (5) COPD (chronic obstructive pulmonary disease): (6) On supplemental oxygen therapy: (7) CKD (chronic kidney disease): (8) Hyponatremia: (9) Azotemia: (10) Dehydration: (11) Transaminitis: (12) Diabetic peripheral neuropathy associated with type 2 diabetes mellitus: Plan Dysphagia Neck CT - CT/CT neck w con* [id number] IMPRESSION: 1. Negative for soft tissue mass or fluid collection. 2. Multilevel bridging productive degenerative bridging degenerative changes throughout the spine which somewhat diffusely impinge on the posterior aspect of the pharynx and esophagus, barium esophagram could further characterize this. 3. Right upper thoracic inlet 10 mm nonspecific prominent lymph node, similar to prior exam dating back to 01/27/2022. - Will keep on clear liquids -Modified barium swallow ordered - IV hydration - Aspiration precautions Aspiration pneumonia? - With dysphagia, elevated CRP - Start Rocephin Hypercalcemia -No overt signs of hypercalcemia, but will monitor - Calcium 12.0, corrected - With elevated LDH, CT scan findings of retroperitoneal lymphadenopathy - Possibly hypercalcemia of malignancy? Possible lymphoma as etiology? - Will continue IV fluids - Monitor serum calcium - Started on calcitonin - Will hold off on bisphosphonate for now, monitor clinical progress - Will consider Decadron 4.6 x 4.1 cm infrarenal abdominal aortic aneurysm will need to be monitored as outpatient Dehydration Underlying chronic kidney disease Azotemia - Continue IV fluids Debility and physical deconditioning PT OT Transaminitis / elevated liver enzymes Evidence of metastatic disease, with bulky retroperitoneal adenopathy Interval development of widespread hepatic metastatic disease and bulky retroperitoneal adenopathy. Given the distribution and appearance, a colonic primary is felt most likely. Other GI source would be high in the differential. -Patient has a pet scan scheduled for this Thursday -CEA within normal limits - LDH is over 600, with hypercalcemia - Possible lymphoma as an etiology? Type 2 diabetes mellitus - Low-dose sliding scale COPD Chronic hypoxic respiratory failure - Supplemental oxygen support, SPO2 goal 88-92 - RT consult - Patient will bring in his home ventilator DVT ppx: Heparin PDMP PDMP Reviewed: Not Reviewed Attestations 2 Medical Necessity Statement*: Patient requires hospitalization for dysphagia, aspiration ammonia, hypercalcemia, evidence of metastatic disease,, deconditioning Diagnoses Dysphagia R13.10 Metastatic disease C79.9 Liver lesion K76.9 Retroperitoneal lymphadenopathy R59.0 COPD (chronic obstructive pulmonary disease) J44.9 On supplemental oxygen therapy Z99.81 CKD (chronic kidney disease) N18.9 Hyponatremia E87.1 Azotemia R79.89 Dehydration E86.0 Transaminitis R74.01 Diabetic peripheral neuropathy associated with type 2 diabetes mellitus E11.42
[2024-07-03 09:59] LABS: Ionized Calcium 1.4 mmol/L (1.1-1.4)
[2024-07-03] MEDS: cefTRIAXone 1,000 mg SDV 1000 MG IVP (10:05)
[2024-07-03] MEDS: calcitonin,salmon 200 unit/mL SDV 2mL 100 UNIT SUBCUT (10:07)
[2024-07-03 10:23] LABS: Calcium 10.3 mg/dL (8.5-10.5)
[2024-07-03 10:30] LABS: Parathyroid Hormone 7.5 pg/mL (15-65)
[2024-07-03 10:36] LABS: 25 Hydroxy Vitamin D 49 ng/mL (30-100)
[2024-07-03 11:15] LABS: Glucose Point of Care 179 mg/dL (70-110)
[2024-07-03] MEDS: insulin lispro 100 unit/1 mL SUBCUT (12:07)
[2024-07-03] MEDS: oxyCODONE-APAP 5-325 mg Tablet 1 TAB PO ×2 (12:07→22:24)
[2024-07-03] MEDS: sodium chloride 0.9% 1,000 ML 75 ML IV (12:58)
[2024-07-03 17:17] LABS: Glucose Point of Care 110 mg/dL (70-110)
[2024-07-03] MEDS: atorvastatin 40 mg Tablet 20 MG PO (17:18)
[2024-07-03] MEDS: trazodone 100 mg Tablet PO (17:18)
[2024-07-03 21:22] LABS: Glucose Point of Care 105 mg/dL (70-110)
[2024-07-04] VITALS (145 sets, daily range): BP systolic 100–162; BP diastolic 56–84; PULSE 73–154; RESP 8–36; TEMP 35.8–36.8; O2SAT 88–99; BMI 37.8
[2024-07-04] MEDS: oxyCODONE-APAP 5-325 mg Tablet 1 TAB PO ×4 (02:30→20:52)
[2024-07-04] MEDS: sodium chloride 0.9% 1,000 ML 75 ML IV (04:19)
--- NOTE | 2024-07-04 04:32 | ECG_ITS ---
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 Measurements Intervals [place] Rate: 100 P: 0 DE: 0 QRS: -69 QRSD: 109 T: 63 QT: 349 QTc: 450 Interpretive Statements Sinus TACHYCARDIA LOW QRS VOLTAGE IN PRECORDIAL LEADS [QRS DEFLECTION < 1.0 mV IN CHEST LEADS] LEFT ANTERIOR FASCICULAR BLOCK [QRS AXIS <= -45, QR IN I, RS IN II] ANTEROSEPTAL MYOCARDIAL INFARCTION , OF INDETERMINATE AGE [40+ ms Q WAVE IN V1-V4] INTERPRETATION BASED ON A DEFAULT AGE OF 40 YEARS Compared to ECG 05/21/2022 16:04:50 Left anterior fascicular block now present Sinus rhythm no longer present Left-axis deviation no longer present Myocardial infarct finding still present Electronically Signed On 07-04-2024 15:04:46 CDT by Loan Hooks M.D. [email or web address]
[2024-07-04] MEDS: amiodarone 50 mg/mL SDV 3 mL 150 MG IVP (04:43)
[2024-07-04 04:58] LABS: Basophils % 0.3 %; Eosinophils # 0.1 10^3/uL (0.0-0.8); Eosinophils % 0.7 %; Hematocrit 35.9 % (37-53); Lymphocytes # 0.8 10^3/uL (0.8-4.8); Lymphocytes % 10.8 %; Mean Corpuscular HGB Conc 30.6 g/dL (30-55); Mean Corpuscular Hemoglobin 28.9 pg (27-33); Mean Corpuscular Volume 94.2 fl (82-101); Mean Platelet Volume 9.2 fL (7.4-10.4); Monocytes # 0.7 10^3/uL (0.2-0.9); Monocytes % 9.6 %; Neutrophils # 5.71 10^3/uL (1.8-7.7); Neutrophils % 76.8 %; Nucleated Red Blood Cells % 0 %; Platelet Count 260 10^3/cmm (157-399); Red Blood Count 3.81 10^6/uL (3.85-5.65); Red Cell Distribution Width 13.8 % (12.1-15.1); White Blood Count 7.42 10^3/uL (3.29-11.43)
[2024-07-04 05:18] LABS: Alanine Aminotransferase 14 U/L (0-41); Albumin Level 2.8 g/dL (3.5-5.2); Alkaline Phosphatase 228 U/L (40-130); Anion Gap 20.5 (5-19); Aspartate Amino Transferase 46 U/L (0-40); Blood Urea Nitrogen 25 mg/dL (8-23); Calcium 10.5 mg/dL (8.5-10.5); Carbon Dioxide 21 mmol/L (22-29); Chloride 100 mmol/L (98-107); Creatinine Clr Calc Pharmacy 56.2034; Globulin 3.8 g/dL (1.3-4.6); Glucose 87 mg/dL (65-115); Osmolality Calculated 288 mOsm/kg (285-295); Potassium 4.5 mmol/L (3.5-5.1); Sodium 137 mmol/L (136-145); Total Bilirubin 0.5 mg/dL (0.15-1.2); Total Protein 6.6 g/dL (6.6-8.7)
[2024-07-04 05:20] LABS: Troponin T (5th) Once 29 ng/L (0-15)
[2024-07-04 05:28] LABS: Thyroid Stimulating Hormone 1.86 uIU/mL (0.27-4.20)
[2024-07-04] MEDS: heparin 5,000 unit/mL INJ 1 mL 5000 UNIT SUBCUT (06:16)
[2024-07-04] MEDS: FUROsemide 20 mg Tablet PO (06:16)
[2024-07-04] MEDS: pantoprazole 40 mg SDV IVP ×2 (06:16→15:39)
[2024-07-04 06:54] LABS: Glucose Point of Care 103 mg/dL (70-110)
--- NOTE | 2024-07-04 07:20 | FL_ITS ---
WS: [id number] Exam: FL barium swallow modifd [id number] Date/Time of Exam: 07/04/2024 11:35 AM Reason For Exam: Oral dysphagia Fluoroscopy time: 3min [id number] minutes # of spot films: 0 Modified barium swallow was performed in conjunction with the speech therapy service. Oral pharyngeal phase of swallowing was normal. There was minimal penetration into the laryngeal inlet when the patient swallowed thin liquid barium. The patient tolerated the remaining barium mixture foodstuffs without penetration or aspiration. The patient swallowed a barium tablet without complication. There was some food residue in the vallecula noted. FL/FL barium swallow modifd [id number] IMPRESSION: 1. Very minimal penetration into the laryngeal inlet when the patient swallowed thin liquid barium. 2. No aspiration or other significant finding.
[2024-07-04] MEDS: tamsulosin 0.4 mg Capsule PO (08:30)
[2024-07-04 09:03] LABS: Estmated Average Glucose 108; Hemoglobin A1C 5.4 % (4.0-6.0)
[2024-07-04 09:15] LABS: Iron 46 ug/dL (59-158); Percent Saturation 27.5 % (20-50); Total Iron Binding Capacity 167 mcg/dl; Unsaturated Iron Binding 121 ug/dL (112-347)
--- NOTE | 2024-07-04 09:25 | USCV_ITS ---
Arabella Lutz Age: 79 Gender: M : 1945 Exam Date: 07/04/2024 13:33 Ordering Phys: Tobi Bronson MD Technologist: Exam Location: [facility] [place] Indication: cp sob BP: 94 / 57 HR: 72 Rhythm: Sinus Technical Quality: Adequate MEASUREMENTS (Male / Female) Normal Values 2D ECHO LV Diastolic Diameter PLAX 4.0 cm 4.2 - 5.9 / 3.9 - 5.3 cm IVS Diastolic Thickness 1.3 cm 0.6 - 1.0 / 0.6 - 0.9 cm IVS Systolic Thickness 1.8 cm LVPW Diastolic Thickness 1.5 cm 0.6 - 1.0 / 0.6 - 0.9 cm LVPW Systolic Thickness 2.0 cm LVOT Diameter 2.0 cm LV Ejection Fraction 2D Teich 70.5 % LV Ejection Fraction MOD 4C 73.6 % LV Ejection Fraction MOD 2C 55.0 % LV Ejection Fraction 2C AL 54.5 % LA Diameter 3.4 cm RA Systolic Volume 4C AL 29.8 ml RA Systolic Volume 4C MOD 27.8 ml Aorta at Sinotubular Diameter 3.2 cm M-MODE LA Ao Ratio MM 1.2 AV Cusp Separation MM 2.3 cm DOPPLER AV Peak Velocity 148.0 cm/s LVOT Peak Velocity 90.0 cm/s AV Area Cont Eq vti 2.6 cm squared AV Area Cont Eq pk 1.9 cm squared MV Area PHT 3.3 cm squared Mitral E to A Ratio 0.9 TV Peak Velocity 154.5 cm/s TR Peak Velocity 166.0 cm/s TR Peak Gradient 11.0 mmHg TV Peak E Velocity 84.0 cm/s PV Peak Velocity 120.0 cm/s FINDINGS Left Ventricle Normal left ventricular size, systolic function and wall thickness, with no regional wall motion abnormalities. Left ventricular ejection fraction is estimated at 60 %. Grade I/IV diastolic dysfunction (abnormal relaxation filling pattern), normal to mildly elevated filling pressures. Right Ventricle The right ventricle is normal in size and function. Right Atrium The right atrium is normal in size. Left Atrium The left atrium is normal in size. Mitral Valve Structurally normal mitral valve without significant stenosis or prolapse. There is no mitral regurgitation. Aortic Valve Structurally normal aortic valve without significant sclerosis or stenosis. There is no aortic regurgitation. Tricuspid Valve Structurally normal tricuspid valve without significant stenosis or regurgitation. Pulmonary artery systolic pressure is normal. Pulmonic Valve Structurally normal pulmonic valve without significant stenosis. There is no pulmonic regurgitation. Pericardium Normal pericardium without effusion. Aorta Normal ascending aorta dimension. IVC The inferior vena cava appears normal. CONCLUSIONS Normal left ventricular size, systolic function and wall thickness, with no regional wall motion abnormalities. Left ventricular ejection fraction is estimated at 60 %. Grade I/IV diastolic dysfunction (abnormal relaxation filling pattern), normal to mildly elevated filling pressures. There is no pericardial effusion. No significant valve abnormalities. Right atrial pressure is around 5 mm of mercury. Dee Lares MD (Electronically Signed) Final Date: 05 Jul 2024 13:30 S
--- NOTE | 2024-07-04 09:28 | ECG_ITS ---
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 Measurements Intervals [place] Rate: 93 P: 71 DE: 210 QRS: -76 QRSD: 97 T: 46 QT: 357 QTc: 444 Interpretive Statements SINUS RHYTHM WITH FIRST DEGREE AV BLOCK LOW QRS VOLTAGE IN PRECORDIAL LEADS [QRS DEFLECTION < 1.0 mV IN CHEST LEADS] LEFT ANTERIOR FASCICULAR BLOCK [QRS AXIS <= -45, QR IN I, RS IN II] POSSIBLE ANTERIOR MYOCARDIAL INFARCTION , PROBABLY OLD [30 ms Q WAVE IN V3/V4, OR R < 0.2 mV IN V4] Compared to ECG 07/04/2024 04:32:17 First degree AV block now present Supraventricular tachycardia no longer present Myocardial infarct finding still present Electronically Signed On 07-04-2024 14:58:37 CDT by Loan Hooks M.D. [id number]
[2024-07-04 09:29] LABS: Vitamin B12 1039 pg/mL (232-1245)
[2024-07-04] MEDS: allopurinol 100 mg Tablet PO (09:38)
[2024-07-04] MEDS: dorzolamide/timolol Op Soln 10 mL Btl 1 DROP EYE-BOTH ×2 (09:40→17:57)
[2024-07-04] MEDS: metoprolol tartrate 25 mg Tablet 12.5 MG PO ×2 (09:40→18:01)
[2024-07-04] MEDS: lactated ringers 1,000 ML 75 ML IV ×2 (09:42→22:47)
[2024-07-04] MEDS: cefTRIAXone 1,000 mg SDV 1000 MG IVP (09:46)
[2024-07-04] MEDS: TRAMadol 50 mg Tablet PO ×2 (10:00→16:24)
[2024-07-04 10:40] LABS: Troponin T (5th) Once 29 ng/L (0-15)
[2024-07-04 11:02] LABS: Procalcitonin > 100.00 ng/mL (0-0.5)
[2024-07-04] MEDS: sucralfate 1 gm/10 mL Oral Liq UDC PO ×3 (11:04→20:53)
[2024-07-04 11:15] LABS: Glucose Point of Care 129 mg/dL (70-110)
--- NOTE | 2024-07-04 11:40 | PC.NURSE ---
Modified barium swallow completed. Pt back to room. NO issues noted.
--- NOTE | 2024-07-04 13:07 | PM.PN ---
Subjective Subjective: Hospital course, labs appreciated. Patient sitting comfortably in chair. Denies any nausea, vomiting. Does complain of difficulty in swallowing on and off while drinking liquids. Has remained hemodynamically stable. Overnight it seems patient did have 1 episode of nonsustained V. tach for which he received 150 of IV amiodarone. He has not had any further episodes of arrhythmia as per awake overnight monitor. Vitals/I&O/Wt Last Vital Signs Temp 98.0 F 07/04/24 03:40 Pulse 91 07/04/24 09:09 Resp 21 H 07/04/24 08:29 BP 116/64 07/04/24 04:00 Pulse Ox 96 07/04/24 09:09 O2 Del Method Nasal Cannula 07/04/24 09:09 O2 Flow Rate 2 07/04/24 09:09 07/03/24 07/04/24 07/04/24 22:59 06:59 14:59 Intake Total 1000 / 1856.25 1000 / 1000 Output Total 1450 / 1450 Balance 1000 / 1856.25 -450 / -450 Weight last 48 hrs Weight 113 kg Weight 113 kg Weight 113.398 kg Physical Exam Narrative: General: Patient is awake. Appears fatigued. Head: Atraumatic. Eyes are assymmetric. Neck: No JVD. Cardiovascular: RRR. No gallops. No murmurs. No peripheral edema. Lungs: Clear to auscultation, no use of accessory muscles, no crackles or wheezes. Skin: No jaundice. No rashes. Abdomen: Normal bowel sounds, abdomen soft and nontender. Genito Urinary: Genital exam not performed since complaints not related. Rectal: Rectal exam not performed since no symptoms indicated blood loss. Extremities: No cyanosis or clubbing. Musculoskeletal: No swollen or erythematous joints. Neurological: Moves all 4 extremities. No myoclonus. Data 07/04/24 04:22 07/04/24 04:22 Micro: Microbiology 07/03/24 07:35 Blood Culture - Preliminary Blood NEGATIVE TO DATE 07/03/24 07:47 Blood Culture - Preliminary Blood NEGATIVE TO DATE A&P Assessment and plan (1) Dysphagia: (2) Metastatic disease: (3) Liver lesion: (4) Retroperitoneal lymphadenopathy: (5) COPD (chronic obstructive pulmonary disease): (6) On supplemental oxygen therapy: (7) CKD (chronic kidney disease): (8) Hyponatremia: (9) Azotemia: (10) Dehydration: (11) Transaminitis: (12) Diabetic peripheral neuropathy associated with type 2 diabetes mellitus: (13) Hypercalcemia: Plan Dysphagia: Unknown cause. CT done on admission showed diffusely impingement at posterior aspect of the fat into the esophagus with multilevel degenerative changes on the spine. Appreciate modified barium swallow. Continue with clear liquid diet. Start on Reglan ACHS liquid. Continue with IV Protonix. Aspiration precaution. Will consult surgery for possible need of endoscopy for further evaluation. CKD: Baseline creatinine for last 1 year or so seem to be around 1.2-1.8. Currently 1.4. Continue to monitor. CT abdomen pelvis negative for obstructive nephropathy. Medical reconciliation done for nephrotoxic drugs. Electrolyte abnormalities: Hypercalcemia/hyponatremia: Most likely in setting of dehydration. Resolving. Maintain potassium around 4, magnesium around 2. Monitor daily. Appreciate vitamin D and PTH levels. Liver lesion/retroperitoneal lymphadenopathy: Concern for possible malignancy. Possible primary colon. Patient does not give any personal history of cancer. Does get family history of prostate, breast, lung cancer. CRP elevated. Concerns for lymphoma. Check CEA. Care discussed in detail with radiology. Agreeable for ultrasound-guided liver biopsy. Patient is agreeable. Did discuss with patient's daughter and she is agreeable as well. Hold off on heparin. Appreciate INR check on admission. Nonsustained V. tach: 1 episode overnight. Restart home dose of metoprolol. Troponin. If elevated will go first troponin cycled. Patient denies any chest pain. Electrolyte targets as above. Echocardiogram. Telemetry. DNR/DNI Cleared liquid diet, n.p.o. after midnight. Protonix OPD prophylaxis SCD for DVT prophylaxis. Transfer to CSU. Patient's care discussed in detail with daughter over the phone. All the questions were answered. PDMP PDMP Reviewed: Not Reviewed Attestations Medical Necessity Statement*: Requires further hospitalization for management of dysphagia, [place] abnormality due to dehydration from poor oral intake, CKD, liver lesion with recommended limply with high concerns of malignancy requiring biopsy, nonsustained V. tach Diagnoses Dysphagia R13.10 Metastatic disease C79.9 Liver lesion K76.9 Retroperitoneal lymphadenopathy R59.0 COPD (chronic obstructive pulmonary disease) J44.9 On supplemental oxygen therapy Z99.81 CKD (chronic kidney disease) N18.9 Hyponatremia E87.1 Azotemia R79.89 Dehydration E86.0 Transaminitis R74.01 Diabetic peripheral neuropathy associated with type 2 diabetes mellitus E11.42 Hypercalcemia E83.52
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
[2024-07-04] MEDS: polyethylene glycol 3350 Pkt 17 gm PO (15:39)
[2024-07-04 16:52] LABS: Glucose Point of Care 109 mg/dL (70-110)
[2024-07-04] MEDS: METOCLOPRAMIDE HCL 10 MG/10 ML UDC 5 MG PO ×2 (16:55→20:53)
[2024-07-04] MEDS: atorvastatin 40 mg Tablet 20 MG PO (18:01)
--- NOTE | 2024-07-04 18:44 | PC.NURSE ---
Shift summary: Pt has sat up in chair most of the day. VSS. Afebrile noted. Sinus, first degree block noted on monitor throughout shift. No irregular rhythms noted. Pt restarted on his home meds Allopurinol and metoprolol. He worked with PT today. Echocardiogram and modified barium swallow testing completed today. Tomorrow US liver biposy schedule. He has urinated multiple times today, he has to stand or sit up to urinate. He was started on Reglan and Miralax. He has not had a BM since the (May) per him. He stated a few minutes ago he feels like he may be able to tonight.
--- NOTE | 2024-07-04 20:49 | PC.SLP ---
CATTLE FEEDER plans follow-up with the patient tomorrow. Dysphagia therapy will be initiated, as well as modified barium swallow study reviewed with the patient.
[2024-07-04] MEDS: trazodone 100 mg Tablet PO (20:53)
[2024-07-04 22:00] LABS: Glucose Point of Care 132 mg/dL (70-110)
[2024-07-05] VITALS (155 sets, daily range): BP systolic 85–133; BP diastolic 48–80; PULSE 68–140; RESP 7–36; TEMP 36.1–36.8; O2SAT 87–99; BMI 37.8
[2024-07-05] MEDS: pantoprazole 40 mg SDV IVP ×2 (03:51→16:13)
[2024-07-05] MEDS: TRAMadol 50 mg Tablet PO ×3 (03:52→16:21)
[2024-07-05 04:37] LABS: Basophils % 0.3 %; Eosinophils # 0.1 10^3/uL (0.0-0.8); Eosinophils % 1.6 %; Hematocrit 36.8 % (37-53); Lymphocytes # 0.9 10^3/uL (0.8-4.8); Lymphocytes % 11.1 %; Mean Corpuscular Hemoglobin 28.8 pg (27-33); Mean Corpuscular Volume 92.9 fl (82-101); Mean Platelet Volume 9.1 fL (7.4-10.4); Monocytes # 0.7 10^3/uL (0.2-0.9); Monocytes % 8.4 %; Neutrophils # 6.06 10^3/uL (1.8-7.7); Neutrophils % 76.7 %; Nucleated Red Blood Cells % 0 %; Platelet Count 254 10^3/cmm (157-399); Red Blood Count 3.96 10^6/uL (3.85-5.65); Red Cell Distribution Width 13.9 % (12.1-15.1)
[2024-07-05 04:52] LABS: Chol HDL Ratio 2.54 mg/dL (1.0-5.00); Cholesterol 94 mg/dL (0-200); HDL Cholesterol 37 mg/dL (60-100); LDL Cholesterol Calculated 26 mg/dL (50-129); Magnesium 1.9 mg/dL (1.7-2.3); Triglycerides 153 mg/dL (0-150); VLDL Cholestrol Calculation 31 mg/dL (0-30)
[2024-07-05 04:53] LABS: Alanine Aminotransferase 15 U/L (0-41); Albumin Level 3.1 g/dL (3.5-5.2); Alkaline Phosphatase 235 U/L (40-130); Anion Gap 13.5 (5-19); Aspartate Amino Transferase 48 U/L (0-40); Blood Urea Nitrogen 24 mg/dL (8-23); Calcium 10.6 mg/dL (8.5-10.5); Carbon Dioxide 27 mmol/L (22-29); Chloride 102 mmol/L (98-107); Creatinine Clr Calc Pharmacy 56.2034; Globulin 3.3 g/dL (1.3-4.6); Glucose 102 mg/dL (65-115); Osmolality Calculated 290 mOsm/kg (285-295); Potassium 4.5 mmol/L (3.5-5.1); Sodium 138 mmol/L (136-145); Total Bilirubin 0.5 mg/dL (0.15-1.2); Total Protein 6.4 g/dL (6.6-8.7)
[2024-07-05 05:12] LABS: Folate Level 4.5 ng/mL (4.5-32.2)
[2024-07-05] MEDS: METOCLOPRAMIDE HCL 10 MG/10 ML UDC 5 MG PO ×4 (07:48→20:56)
[2024-07-05] MEDS: sucralfate 1 gm/10 mL Oral Liq UDC PO ×4 (07:48→20:56)
[2024-07-05 07:58] LABS: Glucose Point of Care 113 mg/dL (70-110)
[2024-07-05] MEDS: polyethylene glycol 3350 Pkt 17 gm PO (08:33)
[2024-07-05] MEDS: metoprolol tartrate 25 mg Tablet 12.5 MG PO ×2 (08:33→17:55)
[2024-07-05] MEDS: oxyCODONE-APAP 5-325 mg Tablet 1 TAB PO ×3 (08:33→20:55)
[2024-07-05] MEDS: dorzolamide/timolol Op Soln 10 mL Btl 1 DROP EYE-BOTH ×2 (08:34→17:55)
[2024-07-05] MEDS: allopurinol 100 mg Tablet PO (08:34)
[2024-07-05] MEDS: tamsulosin 0.4 mg Capsule PO (08:34)
[2024-07-05] MEDS: cefTRIAXone 1,000 mg SDV 1000 MG IVP (09:35)
--- NOTE | 2024-07-05 10:09 | P.PN_ITS ---
Subjective 2 Subjective: The patient was seen and examined at bedside this morning. He was advanced to a soft diet last night, which was well-tolerated. He also had a very large bowel movement overnight. He denied nausea, vomiting or abdominal pain. He is NPO this morning for his liver biopsy which is scheduled for this morning. Vitals/I&O/Wt Last Vital Signs Temp 97.4 F L 07/05/24 07:00 Pulse 86 07/05/24 09:25 Resp 28 H 07/05/24 08:33 BP 98/48 07/05/24 07:00 Pulse Ox 92 07/05/24 09:25 O2 Del Method Room Air 07/05/24 09:25 O2 Flow Rate 2 07/04/24 09:09 07/04/24 07/05/24 07/05/24 22:59 06:59 14:59 Intake Total 1250 / 1550 Output Total 210 / 860 400 / 1260 Balance 1040 / 690 -400 / 290 Weight last 48 hrs Weight 249 lb 1.957 oz Weight 249 lb 1.957 oz Weight 249 lb 1.957 oz Physical Exam 2 Const: COMMON NORMALS: no acute distress, alert and well nourished O RIENTATION/CONSCIOUSNESS: Yes oriented to person, Yes oriented to place and Yes oriented to time HENMT: COMMON NORMALS: normocephalic and hearing grossly normal bilaterally HEAD & SCALP: normocephalic Chest: CHEST: Yes abnormal inspection of the chest and Yes Symmetrical chest wall rise Resp: COMMON NORMALS: normal respiratory effort and No use of accessory muscles GI: OTHER: Abdomen obese, soft, nontender to palpation, non-distended. No rebound tenderness, rigidity, or guarding. Well-healed mid-line laparotomy cicatrix noted. No palpable abdominal wall hernias. Neuro: SENSORIUM/ORIENTATION: Yes alert, Yes oriented to person, Yes oriented to place and Yes oriented to time Psych: COMMON NORMALS: speech normal SPEECH: Yes normal speech MOOD & AFFECT: Yes euthymic mood Data 07/05/24 03:54 07/05/24 03:54 Micro: Microbiology 07/03/24 07:35 Blood Culture - Preliminary Blood NEGATIVE TO DATE 07/03/24 07:47 Blood Culture - Preliminary Blood NEGATIVE TO DATE A&P Assessment and plan (1) Dysphagia: (2) Liver lesion: (3) Retroperitoneal lymphadenopathy: (4) Back pain: Plan Intermittent dysphagia (w/relatively normal MOBAS): -- EGD recommended to rule out any upper GI sources of dysphagia. Timing to be determined after discussions with the patient's daughter. CT findings of widespread liver mets, with suspicion for colon primary with bulky retroperitoneal lymphadenopathy: -- Colonoscopy recommended: The patient stated that he did not want unnecessary tests done and that he would like to wait until the liver biopsy results come back. -- The patient is not mechanically obstructed as he had a large bowel movement overnight. It is reasonable, that if the patient is not mechanically obstructed, the colonoscopy would not have to be done during this admission, but I am happy to do so if that is what they would like to do. For now, the patient would like to wait at least until after his liver biopsy results. Timing to be determined after discussions with the patient's daughter. -- If colonoscopy is deferred, I will recommend doing a digital rectal exam during this admission. --This patient will need to be set up with an oncologist. Apparently, a PET CT scan has been ordered by the hospital in [place] and it is scheduled for July 08, 2024. -- CEA on 07/03/2024 noted to be 2.3 Constipation, lack of having a bowel movement for several days: resolved after bowel regemin and ambulation. Elevated liver enzymes: likely associated with above Normocytic anemia: likely associated with above - improved Hypoalbuminemia PDMP PDMP Reviewed: Not Reviewed Attestations 2 Medical Necessity Statement*: Expected stay to be longer the 2 midnights, to further monitor Is/Os, vital signs, bowel function, and toleration of diet. Coding Level of Care Code Acute Code for Chg Fwd Diagnoses Dysphagia R13.10 Liver lesion K76.9 Retroperitoneal lymphadenopathy R59.0 Back pain M54.9 Back pain location: low back pain Back pain laterality: bilateral
[2024-07-05 11:46] LABS: Glucose Point of Care 110 mg/dL (70-110)
--- NOTE | 2024-07-05 11:55 | PC.NURSE ---
Dr. White, radiologist, at bedside to perform US guided liver biopsy. Time out performed. Specimen collected and sent to pathology. Pressure held to biopsy site. 2x2 and tegaderm applied. No bleeding noted. Pt tolerated well. VSS. Report given to bedside nurse, ALETA Alvarado.
[2024-07-05 11:58] LABS: Lymphoma Profile (BBPL) See Report
[2024-07-05] MEDS: fentaNYL 50 mcg/mL INJ 2mL IVP (12:03)
[2024-07-05] MEDS: midazolam 1 mg/mL INJ 2 mL IVP (12:05)
--- NOTE | 2024-07-05 12:57 | US_ITS ---
WS: [id number] INDICATION: Liver metastasis TECHNIQUE: Ultrasound-guided liver biopsy. FINDINGS: The procedure including risks, benefits, and complications were discussed with the patient who agreed to proceed. Using sterile technique patient was prepped and draped in usual sterile fashion. Timeout was performed. After 1% lidocaine, using ultrasound guidance, an 18-gauge achieve biopsy device was advanced into the RIGHT hepatic mass. Approximately 6 core biopsies were obtained. No immediate complications. US/US biopsy liver [id number] IMPRESSION: Uncomplicated ultrasound-guided liver biopsy. Pathology is pending.
[2024-07-05] MEDS: peg /e-lyte soln 4,000 mL Btl 2000 ML PO ×2 (14:15→22:04)
[2024-07-05] MEDS: lactated ringers 1,000 ML 75 ML IV (14:15)
--- NOTE | 2024-07-05 14:44 | P.PN_ITS ---
Subjective 2 Subjective: No acute events overnight. Patient has remained hemodynamically stable and afebrile. He is able to tolerate advanced diet overnight. Today morning seen sitting up in chair. No further episode of nonsustained V. tach. Blood pressure stable. Vitals/I&O/Wt Last Vital Signs Temp 97.0 F L 07/05/24 11:56 Pulse 74 07/05/24 13:30 Resp 18 07/05/24 14:21 BP 123/66 07/05/24 13:30 Pulse Ox 91 07/05/24 14:21 O2 Del Method Room Air 07/05/24 13:30 O2 Flow Rate 3 07/05/24 13:00 07/04/24 07/05/24 07/05/24 22:59 06:59 14:59 Intake Total 1250 / 1550 1000 / 1000 Output Total 210 / 860 400 / 1260 Balance 1040 / 690 -400 / 290 1000 / 1000 Weight last 48 hrs Weight 113 kg Weight 113 kg Weight 113 kg Physical Exam 2 Narrative: General: Patient is awake. Appears fatigued. Head: Atraumatic. Eyes are assymmetric. Neck: No JVD. Cardiovascular: RRR. No gallops. No murmurs. No peripheral edema. Lungs: Clear to auscultation, no use of accessory muscles, no crackles or wheezes. Skin: No jaundice. No rashes. Abdomen: Normal bowel sounds, abdomen soft and nontender. Genito Urinary: Genital exam not performed since complaints not related. Rectal: Rectal exam not performed since no symptoms indicated blood loss. Extremities: No cyanosis or clubbing. Musculoskeletal: No swollen or erythematous joints. Neurological: Moves all 4 extremities. No myoclonus. Data 07/05/24 03:54 07/05/24 03:54 A&P Assessment and plan (1) Dysphagia: (2) Metastatic disease: (3) Liver lesion: (4) Retroperitoneal lymphadenopathy: (5) COPD (chronic obstructive pulmonary disease): (6) On supplemental oxygen therapy: (7) CKD (chronic kidney disease): (8) Hyponatremia: (9) Azotemia: (10) Dehydration: (11) Transaminitis: (12) Diabetic peripheral neuropathy associated with type 2 diabetes mellitus: (13) Hypercalcemia: Plan Dysphagia: Unknown cause. CT done on admission showed diffusely impingement at posterior aspect of the fat into the esophagus with multilevel degenerative changes on the spine. Appreciate modified barium swallow. Diet advance as per speech evaluation. Tolerated well overnight. Currently n.p.o. for liver biopsy. Transition to clear liquid diet postbiopsy for colonoscopy in AM. Continue with Reglan AC and at bedtime liquid. Continue with IV Protonix. Aspiration precaution. Discussed in detail with surgical team. Patient would need endoscopy for further evaluation of dysphagia and possible malignancy though patient is hesitant. CKD: Baseline creatinine for last 1 year or so seem to be around 1.2-1.8. Currently stable around 1.4. Continue to monitor. CT abdomen pelvis negative for obstructive nephropathy. Medical reconciliation done for nephrotoxic drugs. Electrolyte abnormalities: Hypercalcemia/hyponatremia: Most likely in setting of dehydration. Calcium level 10.6 today. Slightly elevated. Restart calcitonin. Continue with Ringer lactate for now. Maintain potassium around 4, magnesium around 2. Monitor daily. Appreciate vitamin D and PTH levels. Liver lesion/retroperitoneal lymphadenopathy: Concern for possible malignancy. Possible primary colon. Underwent liver biopsy today. Will follow-up pathology. PET scan scheduled as an outpatient for Thursday. Discussed in detail with surgical team. Need for colonoscopy to rule out colonic mass. Patient is agreeable. Plan for colonoscopy in AM. Bowel regimen and diet as per surgical team for now. Continue to hold off on heparin as per surgical team. Appreciate INR check on admission. Nonsustained V. tach: 1 episode overnight. Continue with home dose of metoprolol. Stable troponin level. Electrolyte targets as above. Echocardiogram Shows EF of 60% with grade 1 diastolic dysfunction. Telemetry. DNR/DNI N.p.o., afte rliver biopsy clear liquid diet. Protonix OPD prophylaxis SCD for DVT prophylaxis. Transfer to [facility]. Patient's care discussed in detail with daughter over the phone. All the questions were answered. PDMP PDMP Reviewed: Not Reviewed Attestations 2 Medical Necessity Statement*: Requires further hospitalization for management of dysphagia, electrolyte abnormality due to dehydration from poor oral intake, CKD, liver lesion with high concerns of malignancy requiring liver biopsy, colonoscopy Diagnoses Dysphagia R13.10 Metastatic disease C79.9 Liver lesion K76.9 Retroperitoneal lymphadenopathy R59.0 COPD (chronic obstructive pulmonary disease) J44.9 On supplemental oxygen therapy Z99.81 CKD (chronic kidney disease) N18.9 Hyponatremia E87.1 Azotemia R79.89 Dehydration E86.0 Transaminitis R74.01 Diabetic peripheral neuropathy associated with type 2 diabetes mellitus E11.42 Hypercalcemia E83.52
[2024-07-05 17:18] LABS: Glucose Point of Care 128 mg/dL (70-110)
[2024-07-05] MEDS: atorvastatin 40 mg Tablet 20 MG PO (17:55)
[2024-07-05] MEDS: calcitonin,salmon 200 unit/mL SDV 2mL 100 UNIT SUBCUT (17:56)
--- NOTE | 2024-07-05 19:18 | PC.NURSE ---
Shift summary: Sinus, first degree block noted on monitor throughout shift. VSS. Pt afebrile. He sat up in the chair for the majority of the shift. The only time he went back to the bed was for the Liver biopsy. He tolerated that very well. No blee ding or hematomas noted at site. Pt has not reported chest or throat pain today as he did yesterday. He has reported his chronic back pain, but he is rating it lower today than yesterday. He has used the urinal, ouptu toal 700. No Bm noted this shift. Pt has tolerated drinking Go-lytely well. He finished the first round.
[2024-07-05] MEDS: trazodone 100 mg Tablet PO (20:55)
[2024-07-05] MEDS: bisacodyl 5 mg Tablet 20 MG PO (20:55)
[2024-07-05] MEDS: magnesium hydroxide 30 mL UDC PO (20:56)
[2024-07-05 21:15] LABS: Glucose Point of Care 121 mg/dL (70-110)
[2024-07-06] VITALS (11 sets, daily range): BP systolic 91–119; BP diastolic 53–75; PULSE 81–96; RESP 13–86; TEMP 36.6–37.1; O2SAT 91–96
--- NOTE | 2024-07-06 01:06 | PC.NURSE ---
Report called to ALETA Palacios in [facility]. All personal belongings transferred with patient in his bed, including clothing, home cpap equipment, cell phone, clinical trial data manager, and chart.
[2024-07-06] MEDS: TRAMadol 50 mg Tablet PO ×3 (01:17→17:19)
--- NOTE | 2024-07-06 01:45 | PC.NURSE ---
Received report from Chela RIVER. Patient arrived to room 102, patient oriented to room. At this time patient requesting pain medication for back pain. See Mar for pain medication administration.
[2024-07-06 03:55] LABS: Magnesium 1.9 mg/dL (1.7-2.3)
[2024-07-06] MEDS: lactated ringers 1,000 ML 75 ML IV (04:26)
[2024-07-06] MEDS: pantoprazole 40 mg SDV IVP ×2 (04:27→17:19)
[2024-07-06] MEDS: oxyCODONE-APAP 5-325 mg Tablet 1 TAB PO ×3 (05:57→21:35)
[2024-07-06] MEDS: METOCLOPRAMIDE HCL 10 MG/10 ML UDC 5 MG PO ×4 (06:05→21:36)
[2024-07-06] MEDS: sucralfate 1 gm/10 mL Oral Liq UDC PO ×4 (06:05→21:36)
--- NOTE | 2024-07-06 06:35 | PC.NURSE ---
Patient is having colonoscopy today and received once dose of glycolax last night at 2200. BM are not yet clear but are loose. Notified Dr. Bronson of BM and clarified if another dose needs to be given. Per Dr. Bronson given another 1500 ml of go-lytely now.
[2024-07-06] MEDS: metoprolol tartrate 25 mg Tablet 12.5 MG PO ×2 (09:08→17:19)
[2024-07-06] MEDS: tamsulosin 0.4 mg Capsule PO (09:08)
[2024-07-06] MEDS: allopurinol 100 mg Tablet PO (09:08)
[2024-07-06] MEDS: polyethylene glycol 3350 Pkt 17 gm PO (09:09)
--- NOTE | 2024-07-06 09:48 | PC.NURSE ---
Provider ordered clear liquid diet for today and then NPO after midnight for colonoscope.
--- NOTE | 2024-07-06 10:13 | P.PN_ITS ---
Subjective 2 Subjective: The patient was seen and evaluated at bedside this morning. He started his bowel prep yesterday, however nursing staff reports that his bowel movements still have solid components and are not clear. He denies nausea, vomiting or abdominal pain. Vitals/I&O/Wt Last Vital Signs Temp 97.9 F 07/06/24 07:47 Pulse 96 07/06/24 07:47 Resp 22 H 07/06/24 07:47 BP 112/53 07/06/24 07:47 Pulse Ox 94 07/06/24 07:47 O2 Del Method CPAP 07/06/24 04:00 O2 Flow Rate 3 07/05/24 13:00 07/05/24 07/06/24 07/06/24 22:59 06:59 14:59 Intake Total 1000 / 2240 1000 / 3240 Output Total 420 / 920 Balance 580 / 1320 1000 / 2320 Weight last 48 hrs Weight 237 lb Weight 249 lb 1.957 oz Physical Exam 2 Const: COMMON NORMALS: no acute distress, patient oriented x3 and well nourished HENMT: COMMON NORMALS: normocephalic and atraumatic HEAD & SCALP: n ormocephalic and atraumatic Chest: CHEST: Yes Symmetrical chest wall rise Resp: COMMON NORMALS: normal respiratory effort and No use of accessory muscles GI: OTHER: Abdomen obese, soft, nontender to palpation, non-distended. No rebound tenderness, rigidity, or guarding. Well-healed mid-line laparotomy cicatrix noted. No palpable abdominal wall hernias. Neuro: COMMON NORMALS: patient oriented x3 Psych: COMMON NORMALS: mental status grossly normal and speech normal S PEECH: Yes normal speech Data 07/05/24 03:54 07/05/24 03:54 A&P Assessment and plan (1) Liver lesion: -- Failed bowel prep last night, the patient thinks that he did not drink enough of the bowel prep last night. -- Plan for colonoscopy with possible biopsy, possible polypectomy, possible submucosal ink tattoo tomorrow. Will be a 2-day bowel prep now. Clear liquid diet now, NPO at midnight, split bowel prep ordered, continue to hold all 'blood thinning' medications. -- Prior to the procedure, the procedure and what it would entail, including the risks, benefits, and potential alternative treatment options were discussed with the patient and his family member in detail. Risks included but were not limited to infection, rectal bleeding, perforation requiring surgical intervention and ostomy creation, incomplete colonoscopy which would require repeat colonoscopy within 1 year, missed polyps, need for additional procedures, and heart or lung complications. The patient expressed understanding of all the risks, benefits, and alternatives and wished to proceed with colonoscopy. Again, it was discussed that there would be a slightly higher risk of perforation or bleeding if a colon cancer or mass is encountered. -- I also did discuss with the patient that if he takes longer to recover from colonoscopy tomorrow or needs further hospitalization, it is possible that it could interfere with his outpatient PET CT scan that had previously been scheduled for July 08, 2024. (2) Retroperitoneal lymphadenopathy: (3) Dysphagia: -- The patient was adamant that he does not want to undergo an esophagogastroduodenoscopy at this time. (4) Transaminitis: (5) Hypercalcemia: (6) CKD (chronic kidney disease): (7) COPD (chronic obstructive pulmonary disease): PDMP PDMP Reviewed: Not Reviewed Attestations 2 Medical Necessity Statement*: Remain inpatient for further monitoring of vital signs, lab work, and administration of medications. Coding Level of Care Code Acute Code for Chg Fwd Diagnoses Liver lesion K76.9 Retroperitoneal lymphadenopathy R59.0 Dysphagia R13.10 Transaminitis R74.01 Hypercalcemia E83.52 CKD (chronic kidney disease) N18.9 COPD (chronic obstructive pulmonary disease) J44.9
[2024-07-06] MEDS: bisacodyl 5 mg Tablet 10 MG PO (10:26)
[2024-07-06] MEDS: cefTRIAXone 1,000 mg SDV 1000 MG IVP (10:27)
[2024-07-06] MEDS: calcitonin,salmon 200 unit/mL SDV 2mL 100 UNIT SUBCUT ×2 (10:27→21:13)
[2024-07-06 12:04] LABS: Glucose Point of Care 112 mg/dL (70-110)
[2024-07-06] MEDS: peg /e-lyte soln 4,000 mL Btl 2000 ML PO (12:11)
--- NOTE | 2024-07-06 12:26 | PC.SOCIAL ---
IMM Updated Updated pt on IMM. No questions voiced. Provided pt a copy. Initialed, dated, & timed a copy & placed in chart.
--- NOTE | 2024-07-06 12:52 | PM.PN ---
Subjective Subjective: No acute events overnight. Patient had few bowel movements while being on bowel prep. Denies any nausea, vomiting, headache. Able to tolerate clear liquid diet. Seen sitting up in chair today. Vitals/I&O/Wt Last Vital Signs Temp 98.1 F 07/06/24 11:55 Pulse 82 07/06/24 11:55 Resp 86 H 07/06/24 12:12 BP 119/75 07/06/24 11:55 Pulse Ox 96 07/06/24 12:12 O2 Del Method Nasal Cannula 07/06/24 11:55 O2 Flow Rate 3 07/05/24 13:00 07/05/24 07/06/24 07/06/24 22:59 06:59 14:59 Intake Total 1000 / 2240 1000 / 3240 Output Total 420 / 920 125 / 125 Balance 580 / 1320 1000 / 2320 -125 / -125 Weight last 48 hrs Weight 107.501 kg Weight 113 kg Physical Exam Narrative: General: Patient is awake. Appears fatigued. Head: Atraumatic. Eyes are assymmetric. Neck: No JVD. Cardiovascular: RRR. No gallops. No murmurs. No peripheral edema. Lungs: Clear to auscultation, no use of accessory muscles, no crackles or wheezes. Skin: No jaundice. No rashes. Abdomen: Normal bowel sounds, abdomen soft and nontender. Genito Urinary: Genital exam not performed since complaints not related. Rectal: Rectal exam not performed since no symptoms indicated blood loss. Extremities: No cyanosis or clubbing. Musculoskeletal: No swollen or erythematous joints. Neurological: Moves all 4 extremities. No myoclonus. Data 07/05/24 03:54 07/05/24 03:54 A&P Assessment and plan (1) Dysphagia: (2) Metastatic disease: (3) Liver lesion: (4) Retroperitoneal lymphadenopathy: (5) COPD (chronic obstructive pulmonary disease): (6) On supplemental oxygen therapy: (7) CKD (chronic kidney disease): (8) Hyponatremia: (9) Azotemia: (10) Dehydration: (11) Transaminitis: (12) Diabetic peripheral neuropathy associated with type 2 diabetes mellitus: (13) Hypercalcemia: Plan Dysphagia: Unknown cause. CT done on admission showed diffusely impingement at posterior aspect of the fat into the esophagus with multilevel degenerative changes on the spine. Appreciate modified barium swallow. Diet advance as per speech evaluation. Tolerated well overnight. Currently n.p.o. for liver biopsy. Transition to clear liquid diet postbiopsy for colonoscopy in AM. Continue with Reglan AC and at bedtime liquid. Continue with IV Protonix. Aspiration precaution. Discussed in detail with surgical team. Patient would need endoscopy for further evaluation of dysphagia and possible malignancy though patient is hesitant. CKD: Baseline creatinine for last 1 year or so seem to be around 1.2-1.8. Currently stable around 1.4. Continue to monitor. CT abdomen pelvis negative for obstructive nephropathy. Medical reconciliation done for nephrotoxic drugs. Electrolyte abnormalities: Hypercalcemia/hyponatremia: Most likely in setting of dehydration. Calcium level 10.6 today. Slightly elevated. Restart calcitonin. Continue with Ringer lactate for now. Maintain potassium around 4, magnesium around 2. Monitor daily. Appreciate vitamin D and PTH levels. Liver lesion/retroperitoneal lymphadenopathy: Concern for possible malignancy. Possible primary colon. Underwent liver biopsy today. Will follow-up pathology. PET scan scheduled as an outpatient for Thursday. Discussed in detail with surgical team. Need for colonoscopy to rule out colonic mass. Patient is agreeable. Plan for colonoscopy in AM. Bowel regimen and diet as per surgical team for now. Continue to hold off on heparin as per surgical team. Appreciate INR check on admission. Nonsustained V. tach: 1 episode overnight. Continue with home dose of metoprolol. Stable troponin level. Electrolyte targets as above. Echocardiogram Shows EF of 60% with grade 1 diastolic dysfunction. Telemetry. DNR/DNI N.p.o., afte rliver biopsy clear liquid diet. Protonix OPD prophylaxis SCD for DVT prophylaxis. Plan for the day: CMP awaited. Monitor for hypercalcemia while patient is off IV fluids and started on calcitonin. Continue with bowel prep. Not completed for now. Will hold off on colonoscopy for today. Continue with clear liquid diet, aggressive bowel prep for possible colonoscopy in a.m. Out of bed to chair. Encourage patient to ambulate. Patient will follow-up as an outpatient for results of liver biopsy. Blood pressure stable. Continue with metoprolol 12.5 mg twice daily. Can transfer to [facility] floor. Patient's care discussed in detail with daughter over the phone. All the questions were answered. PDMP PDMP Reviewed: Not Reviewed Attestations Medical Necessity Statement*: Requires further hospitalization while patient awaits colonoscopy with concerns for colon cancer with liver mets post liver biopsy, dysphagia while diet is advanced, GUNNAR and hyperkalemia Diagnoses Dysphagia R13.10 Metastatic disease C79.9 Liver lesion K76.9 Retroperitoneal lymphadenopathy R59.0 COPD (chronic obstructive pulmonary disease) J44.9 On supplemental oxygen therapy Z99.81 CKD (chronic kidney disease) N18.9 Hyponatremia E87.1 Azotemia R79.89 Dehydration E86.0 Transaminitis R74.01 Diabetic peripheral neuropathy associated with type 2 diabetes mellitus E11.42 Hypercalcemia E83.52
[2024-07-06 13:30] LABS: Alanine Aminotransferase 19 U/L (0-41); Albumin Level 3.1 g/dL (3.5-5.2); Alkaline Phosphatase 269 U/L (40-130); Blood Urea Nitrogen 20 mg/dL (8-23); Calcium 10.5 mg/dL (8.5-10.5); Carbon Dioxide 25 mmol/L (22-29); Chloride 101 mmol/L (98-107); Creatinine Clr Calc Pharmacy 59.3341; Globulin 3.6 g/dL (1.3-4.6); Glucose 118 mg/dL (65-115); Osmolality Calculated 290 mOsm/kg (285-295); Sodium 138 mmol/L (136-145); Total Bilirubin 0.5 mg/dL (0.15-1.2); Total Protein 6.7 g/dL (6.6-8.7)
[2024-07-06 14:11] LABS: Anion Gap 16.3 (5-19); Aspartate Amino Transferase 60 U/L (0-40); Potassium 4.3 mmol/L (3.5-5.1)
--- NOTE | 2024-07-06 15:34 | PC.NURSE ---
Patient ambulated in the hallway with nursing staff, 50 feet.
[2024-07-06 16:33] LABS: Glucose Point of Care 113 mg/dL (70-110)
[2024-07-06] MEDS: atorvastatin 40 mg Tablet 20 MG PO (17:20)
[2024-07-06 20:34] LABS: Glucose Point of Care 116 mg/dL (70-110)
[2024-07-06] MEDS: dorzolamide/timolol Op Soln 10 mL Btl 1 DROP EYE-BOTH (21:13)
[2024-07-06] MEDS: trazodone 100 mg Tablet PO (21:35)
[2024-07-07] VITALS (13 sets, daily range): BP systolic 103–129; BP diastolic 51–71; PULSE 83–92; RESP 12–20; TEMP 36.4–36.8; O2SAT 94–99
[2024-07-07] MEDS: TRAMadol 50 mg Tablet PO ×2 (01:24→13:18)
[2024-07-07 04:19] LABS: Basophils % 0.5 %; Eosinophils # 0.1 10^3/uL (0.0-0.8); Eosinophils % 1.6 %; Hematocrit 32.4 % (37-53); Lymphocytes # 0.8 10^3/uL (0.8-4.8); Lymphocytes % 13.1 %; Mean Corpuscular HGB Conc 30.6 g/dL (30-55); Mean Corpuscular Hemoglobin 28.5 pg (27-33); Mean Corpuscular Volume 93.4 fl (82-101); Mean Platelet Volume 9.6 fL (7.4-10.4); Monocytes # 0.6 10^3/uL (0.2-0.9); Monocytes % 9.9 %; Neutrophils # 4.52 10^3/uL (1.8-7.7); Nucleated Red Blood Cells % 0 %; Platelet Count 235 10^3/cmm (157-399); Red Blood Count 3.47 10^6/uL (3.85-5.65); Red Cell Distribution Width 14.1 % (12.1-15.1); White Blood Count 6.19 10^3/uL (3.29-11.43)
[2024-07-07 04:36] LABS: Alanine Aminotransferase 17 U/L (0-41); Albumin Level 2.7 g/dL (3.5-5.2); Alkaline Phosphatase 242 U/L (40-130); Aspartate Amino Transferase 55 U/L (0-40); Blood Urea Nitrogen 21 mg/dL (8-23); Calcium 10.2 mg/dL (8.5-10.5); Carbon Dioxide 27 mmol/L (22-29); Chloride 103 mmol/L (98-107); Creatinine Clr Calc Pharmacy 55.0538; Globulin 3.2 g/dL (1.3-4.6); Glucose 92 mg/dL (65-115); Osmolality Calculated 293 mOsm/kg (285-295); Sodium 140 mmol/L (136-145); Total Bilirubin 0.5 mg/dL (0.15-1.2); Total Protein 5.9 g/dL (6.6-8.7)
[2024-07-07 04:38] LABS: Magnesium 1.9 mg/dL (1.7-2.3)
[2024-07-07] MEDS: pantoprazole 40 mg SDV IVP (05:13)
[2024-07-07 05:47] LABS: Glucose Point of Care 94 mg/dL (70-110)
[2024-07-07] MEDS: oxyCODONE-APAP 5-325 mg Tablet 1 TAB PO ×2 (06:45→11:14)
[2024-07-07] MEDS: sucralfate 1 gm/10 mL Oral Liq UDC PO (06:46)
--- NOTE | 2024-07-07 08:10 | W.PM.OPSUD ---
Surgery/Procedure H&P Update DATE OF PROCEDURE: July 07, 2024 DATE H&P PERFORMED: 07/04/24 CHANGES TO PREVIOUS DOCUMENTATION: The patient was seen and evaluated again this morning. His labs were reviewed. His subcutaneous heparain DVT ppx has been held. The patient nor his nurse was not able to recall what his last bowel movement was like. PREOP DIAGNOSIS: CT findings suspicious for metastatic liver malignancy PRIMARY INDICATION FOR PROCEDURE: CT findings consistent with liver malignancy and retroperitoneal lymphadenopathy suspicious for a possible colon primary malignancy. PLANNED PROCEDURE: Operation Date: 07/07/24 08:00 Proposed Procedures p Diganostic Colonoscopy(Not Applicable) - Bonita Tejeda MD -- Plan for colonoscopy with possible biopsy, possible polypectomy, possible submucosal ink tattoo. -- Prior to the procedure, the procedure and what it would entail, including the risks, benefits, and potential alternative treatment options were discussed with the patient and his family member in detail. Risks included but were not limited to infection, rectal bleeding, perforation requiring surgical intervention and ostomy creation, incomplete colonoscopy which would require repeat colonoscopy within 1 year, missed polyps, need for additional procedures, and heart or lung complications. -- The patient expressed understanding of all the risks, benefits, and alternatives and wished to proceed with colonoscopy. Again, it was discussed that there would be a slightly higher risk of perforation or bleeding if a colon cancer or mass is encountered. -- If the bowel prep is poor, the colonoscopy may be aborted.
[2024-07-07] MEDS: sodium chloride 0.9% 1,000 ML 15 ML IV (08:15)
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
--- NOTE | 2024-07-07 10:10 | ANE.PACU2 ---
Inpatient post-anesthesia follow up: Airway intact: Yes Vital signs: Temperature 97.6 F Pulse Rate 91 Respiratory Rate 20 Blood Pressure 105/56 Pulse Oximetry 96 Oxygen Delivery Me thod [ Room Air Current Rate & Del kira] Oxygen Delivery Me thod Nasal Cannula Oxygen Flow Rate [ Current Rate 2 & Delivery] Oxygen Flow Rate 2 Fraction of Inspir ed Oxygen Hydration adequate: Yes Nausea and vomiting: No Pain level: 1 Mental status: Baseline
[2024-07-07] MEDS: ipratropium-albuterol 3 mL Neb INHALATION (10:46)
--- NOTE | 2024-07-07 11:25 | PM.DCS ---
Discharge Providers Date of Admission: 07/03/24 10:42 Date of Discharge: July 07, 2024 Attending Provider at Admission: Rodrick Archibald MD Attending Provider at Discharge: Tobi Bronson MD Consults: Surgery: Dr. Tejeda Primary Care Provider: Alvina Morton MD Diagnoses at Discharge Discharge Diagnosis (1) Dysphagia: Status: Acute (2) Metastatic disease: Status: Acute (3) Liver lesion: Status: Acute (4) Retroperitoneal lymphadenopathy: Status: Acute (5) COPD (chronic obstructive pulmonary disease): Status: Acute (6) On supplemental oxygen therapy: Status: Acute (7) CKD (chronic kidney disease): Status: Chronic (8) Hyponatremia: Status: Acute (9) Azotemia: Status: Acute (10) Dehydration: Status: Acute (11) Transaminitis: Status: Acute (12) Diabetic peripheral neuropathy associated with type 2 diabetes mellitus: Status: Acute (13) Hypercalcemia: Status: Acute Reason for Visit Reason for Visit: ABD PAIN Brief History: History as per HPI: Arabella Lutz is a 79 year old male with a past medical history significant for type 2 diabetes mellitus, congestive heart failure, COPD with chronic hypoxic respiratory failure, alcohol use disorder in remission, tobacco use disorder in remission, and osteoarthritis who presents to the emergency department with with generalized weakness and inability to eat. Patient reports symptom onset about a week ago with acute worsening in the past 2 days. Patient reports this sensation of food getting stuck in his upper throat. He states he has not been able to hold anything down due to this sensation. Denies other alleviating or aggravating factors. Daughter is bedside very supportive. She provides collateral information. She reports the patient lives alone. He has been increasingly weak, with acute worsening the past 48 hours. He typically uses a rolling walker at baseline but has unable to the last 2 days due to weakness. He was recently found to have possible liver cancer with concern for possible metastasis. He has a PET scan scheduled for this Thursday. She reports she has been increasingly confused. She has concern that has not been taking his medications as prescribed due to the confusion. In the emergency department, imaging showed widespread hepatic mets with bulky retroperitoneal lymphadenopathy with radiographic suspicion of a colon primary. Patient denies personal known history of colon cancer. He reports a history of benign polyps. States his last colonoscopy was probably about 10 years ago. Denies known family history of colon cancer. Reports brother with lung cancer. Reports brother with bladder cancer. Reports sister with breast cancer. Reports another brother with prostate cancer. Hospital Course Hospital Course Patient was admitted to the hospital further evaluation and management of UGNNAR on CKD, physical deconditioning and along with dehydration in setting of poor oral intake and dysphagia. At first she was started on IV hydration on clear liquid diet. He was seen by speech therapist and diet was advanced as well modified barium swallow which he has been able to tolerate well. Given concerns for metastasis to the liver with unknown primary he underwent liver biopsy on 07/05 which he tolerated well. He also underwent colonoscopy on 07/07 which he tolerated well without any active signs of bleeding. A polyp and few other biopsies were sent. Safe discharge plan were discussed in detail with the patient and he refused home health. He did have an episode of 4 runs of nonsustained V. tach at 1 time during hospitalization. Troponin cycled and echocardiogram was done which were negative for concerns for ACS. For hypercalcemia, resolved with hydration and was continued on calcitonin. His calcium levels remain stable. Discharged home in hemodynamically stable condition advised to follow-up with his PCP within next 1 week for results of various cytopathology's. He should have a repeat BMP and calcium level checked in 1 week. He should continue with dysphagia level diet as per speech evaluation. Discharge was delayed as patient underwent colonoscopy earlier in the morning today and was being recovered from anesthesia postprocedure. Physical Exam Narrative: General: Patient is awake. Appears fatigued. Head: Atraumatic. Eyes are assymmetric. Neck: No JVD. Cardiovascular: RRR. No gallops. No murmurs. No peripheral edema. Lungs: Clear to auscultation, no use of accessory muscles, no crackles or wheezes. Skin: No jaundice. No rashes. Abdomen: Normal bowel sounds, abdomen soft and nontender. Genito Urinary: Genital exam not performed since complaints not related. Rectal: Rectal exam not performed since no symptoms indicated blood loss. Extremities: No cyanosis or clubbing. Musculoskeletal: No swollen or erythematous joints. Neurological: Moves all 4 extremities. No myoclonus. Discharge Data Studies Completed and Pending Completed Studies During Hospitalization Category Date Time Status CT chest abdpel w/*[id number] Stat Cat Scan 07/02/24 23:[address] neck w con* [id number] Stat Cat Scan 07/02/24 23:18 Completed [place] barium swallow modifd [id number] Routine Exams 07/04/24 07:20 Completed CV. echo complete* [id number] Routine Ultrasound 07/04/24 09:25 Completed US biopsy liver [id number] Routine Ultrasound 07/05/24 12:57 Completed Pending at discharge Category Date Time Status Blood Culture Stat Lab 07/03/24 07:35 Results MAG [Magnesium] AM LABS Lab 07/08/24 04:00 Ordered MAG [Magnesium] AM LABS Lab 07/09/24 04:00 Ordered Pathology: Surgical [PTH] Routine Pth 07/05/24 12:25 Received Pathology: Surgical [PTH] Routine Pth 07/07/24 09:35 Received Radiology Impressions Chest/Abdomen/Pelvis CT 07/02/24 23:18 IMPRESSION: No acute findings. IMPRESSION: Interval development of widespread hepatic metastatic disease and bulky retroperitoneal adenopathy. Given the distribution and appearance, a colonic primary is felt most likely. Other GI source would be high in the differential. Infrarenal abdominal aortic aneurysm. Neck CT 07/02/24 23:18 IMPRESSION: 1. Negative for soft tissue mass or fluid collection. 2. Multilevel bridging productive degenerative bridging degenerative changes throughout the spine which somewhat diffusely impinge on the posterior aspect of the pharynx and esophagus, barium esophagram could further characterize this. 3. Right upper thoracic inlet 10 mm nonspecific prominent lymph node, similar to prior exam dating back to 01/27/2022. Modified Barium Swallow 07/04/24 07:20 IMPRESSION: 1. Very minimal penetration into the laryngeal inlet when the patient swallowed thin liquid barium. 2. No aspiration or other significant finding. Liver Biopsy Ultrasound 07/05/24 12:57 IMPRESSION: Uncomplicated ultrasound-guided liver biopsy. Pathology is pending. Echocardiogram: CONCLUSIONS Normal left ventricular size, systolic function and wall thickness, with no regional wall motion abnormalities. Left ventricular ejection fraction is estimated at 60 %. Grade I/IV diastolic dysfunction (abnormal relaxation filling pattern), normal to mildly elevated filling pressures. There is no pericardial effusion. No significant valve abnormalities. Right atrial pressure is around 5 mm of mercury. Dee Lares MD (Electronically Signed) Final Date: 05 Jul 2024 13:30 Laboratory Results WBC 6.19 10^3/uL (3.29-11.43) 07/07/24 03:17 Corrected WBC Cancelled 07/02/24 22:27 RBC 3.47 10^6/uL (3.85-5.65) L 07/07/24 03:17 Hgb 9.90 g/dL (11.27-16.99) L 07/07/24 03:17 Hct 32.4 % (37-53) L 07/07/24 03:17 MCV 93.4 fl (82-101) 07/07/24 03:17 MCH 28.5 pg (27-33) 07/07/24 03:17 MCHC 30.6 g/dL (30-55) 07/07/24 03:17 RDW 14.1 % (12.1-15.1) 07/07/24 03:17 Plt Count 235 10^3/cmm (157-399) 07/07/24 03:17 MPV 9.6 fL (7.4-10.4) 07/07/24 03:17 Gran % Cancelled 07/02/24 22:27 Neut % (Auto) 73.0 % 07/07/24 03:17 Lymph % (Auto) 13.1 % 07/07/24 03:17 [place] % (Auto) 9.9 % 07/07/24 03:17 Eos % (Auto) 1.6 % 07/07/24 03:17 Baso % (Auto) 0.5 % 07/07/24 03:17 Neut # (Auto) 4.52 10^3/uL (1.8-7.7) 07/07/24 03:17 Lymph # (Auto) 0.8 10^3/uL (0.8-4.8) 07/07/24 03:17 [place] # (Auto) 0.6 10^3/uL (0.2-0.9) 07/07/24 03:17 Eos # (Auto) 0.1 10^3/uL (0.0-0.8) 07/07/24 03:17 Baso # (Auto) 0.0 10^3/uL (0.0-0.1) 07/07/24 03:17 Absolute Gran (auto) Cancelled 07/02/24 22:27 Nucleated RBC % (auto) 0 % 07/07/24 03:17 Nucleated RBCs # 0.0 /100WBC 07/07/24 03:17 Haptoglobin 194.0 mg/L (30-200) 07/03/24 07:47 PT 14.70 SECONDS (12.1-14.9) 07/02/24 22:27 INR 1.07 (0.8-1.2) 07/02/24 22:27 Sodium 140 mmol/L (136-145) 07/07/24 03:17 Potassium 4.0 mmol/L (3.5-5.1) 07/07/24 03:17 Chloride 103 mmol/L (98-107) 07/07/24 03:17 Carbon Dioxide 27 mmol/L (22-29) 07/07/24 03:17 Anion Gap 14.0 (5-19) 07/07/24 03:17 BUN 21 mg/dL (8-23) 07/07/24 03:17 Creatinine 1.3 mg/dL (0.7-1.2) H 07/07/24 03:17 GFR Calculation Not Reportable 07/07/24 03:17 Glucose 92 mg/dL (65-115) 07/07/24 03:17 POC Glucose 94 mg/dL (70-110) 07/07/24 05:37 Estimat Average Glucose 108 07/04/24 04:22 Hemoglobin A1c 5.4 % (4.0-6.0) 07/04/24 04:22 Calculated Osmolality 293 mOsm/kg (285-295) 07/07/24 03:17 Calcium 10.2 mg/dL (8.5-10.5) 07/07/24 03:17 Ionized Calcium Jenn 1.4 mmol/L (1.1-1.4) 07/03/24 09:49 Phosphorus 3.0 mg/dL (2.5-4.5) 07/04/24 04:22 Magnesium 1.9 mg/dL (1.7-2.3) 07/07/24 03:17 Iron 46 ug/dL (59-158) L 07/04/24 04:22 TIBC 167 mcg/dl 07/04/24 04:22 % Saturation 27.5 % (20-50) 07/04/24 04:22 Unsat Iron Binding 121 ug/dL (112-347) 07/04/24 04:22 Total Bilirubin 0.5 mg/dL (0.15-1.2) 07/07/24 03:17 Direct Bilirubin 0.30 mg/dL (0.00-0.30) 07/02/24 22:27 AST 55 U/L (0-40) H 07/07/24 03:17 ALT 17 U/L (0-41) 07/07/24 03:17 Alkaline Phosphatase 242 U/L (40-130) H 07/07/24 03:17 Lactate Dehydrogenase 636 U/L (135-225) H 07/03/24 07:47 Troponin T 5th Gen ng/L 29 ng/L (0-15) H 07/04/24 10:03 C-Reactive Protein 165.4 mg/L (0.0-4.9) H 07/02/24 22:27 Total Protein 5.9 g/dL (6.6-8.7) L 07/07/24 03:17 Albumin 2.7 g/dL (3.5-5.2) L 07/07/24 03:17 Globulin 3.2 g/dL (1.3-4.6) 07/07/24 03:17 Triglycerides 153 mg/dL (0-150) H 07/05/24 03:54 Cholesterol 94 mg/dL (0-200) 07/05/24 03:54 LDL Cholesterol, Calc 26 mg/dL (50-129) L 07/05/24 03:54 Total VLDL Cholesterol 31 mg/dL (0-30) H 07/05/24 03:54 HDL Cholesterol 37 mg/dL (60-100) L 07/05/24 03:54 Cholesterol/HDL Ratio 2.54 mg/dL (1.0-5.00) 07/05/24 03:54 Lipase 44 U/L (13-60) 07/02/24 22:27 Carcinoembryonic Ag 2.3 ng/mL (0.0-4.7) 07/03/24 07:47 Vitamin B12 1039 pg/mL (232-1245) 07/04/24 04:22 25-OH Vitamin D Total 49 ng/mL (30-100) 07/03/24 09:40 Folate 4.5 ng/mL (4.5-32.2) 07/05/24 03:54 Procalcitonin > 100.00 ng/mL (0-0.5) H 07/04/24 04:22 TSH 1.86 uIU/mL (0.27-4.20) 07/04/24 04:22 PTH Intact 7.5 pg/mL (15-65) L 07/03/24 09:40 Calcium (PTH Intact) 10.3 mg/dL (8.5-10.5) 07/03/24 09:40 Urine Color Yellow (Yellow) 07/03/24 07:35 Urine Appearance Clear (CLEAR) 07/03/24 07:35 Urine pH 5.5 (5-7) 07/03/24 07:35 Ur Specific [place] 1.029 (1.005-1.030) 07/03/24 07:35 Urine Protein Negative (Negative) 07/03/24 07:35 Urine Glucose (UA) 2+ (Normal) H 07/03/24 07:35 Urine Ketones Negative (Negative) 07/03/24 07:35 Urine Blood Negative (Negative) 07/03/24 07:35 Urine Nitrate Negative (Negative) 07/03/24 07:35 Urine Bilirubin Negative (Negative) 07/03/24 07:35 Urine Urobilinogen 1.0 mg/dL (Negative) 07/03/24 07:35 Ur Leukocyte Esterase Negative (Negative) 07/03/24 07:35 Urine RBC 0-2 /hpf (0-2) 07/03/24 07:35 Urine WBC 0-5 /hpf (0-5) 07/03/24 07:35 Ur Squamous Epith Cells 0-5 /hpf (0-5) 07/03/24 07:35 Amorphous Sediment Not Reportable 07/03/24 07:35 Urine Bacteria None seen /hpf (NONE) 07/03/24 07:35 Hyaline Casts 2.46 /lpf 07/03/24 07:35 Lymphoma Panel See report 07/04/24 05:00 Vitals Last Vital Signs Temp 97.6 F 07/07/24 09:57 Pulse 91 07/07/24 10:54 Resp 20 H 07/07/24 11:14 BP 105/56 07/07/24 10:54 Pulse Ox 96 07/07/24 10:54 O2 Del Method Nasal Cannula 07/07/24 10:47 O2 Flow Rate 2 07/07/24 10:47 Discharge Plan Discharge Patient Disposition: Home Condition: Stable Prescriptions: New pantoprazole [Protonix] 40 mg tablet,delayed release (DR/EC) 40 mg PO QAM Qty: 60 0RF Rx Instructions: Twice daily for next 2 weeks followed by once daily sennosides [Senna Lax] 8.6 mg tablet 8.6 mg PO DAILY Qty: 30 0RF Continued tramadol 50 mg tablet 50 mg PO Q6H PRN (Reason: Pain) tiotropium bromide 2.5 mcg/actuation mist 2 inh inhalation QAM empagliflozin 25 mg tablet 25 mg PO DAILY trazodone 100 mg Tablet 100 mg PO QPM allopurinol 100 mg Tablet 100 mg PO DAILY Qty: 30 0RF fluticasone propion-salmeterol [Wixela Inhub] 250-50 mcg/dose Blister With Device 1 inh INHALATION BID simvastatin 40 mg Tablet 40 mg PO QPM mupirocin 2 % ointment 1 applic topical TID PRN (Reason: Skin Irritation) ondansetron 8 mg tablet,disintegrating 8 mg PO Q6H PRN (Reason: Nausea) oxycodone-acetaminophen 10-325 mg tablet 1 tab PO Q6H PRN (Reason: Pain) tamsulosin 0.4 mg capsule 0.4 mg PO DAILY dorzolamide-timolol 22.3-6.8 mg/mL drops 1 drp ophthalmic (eye) BID polyethylene glycol 3350 17 gram/dose powder See Rx Instructions .ROUTE .COMPLEX Rx Instructions: MIX 17 GRAMS OF POWDER IN 8 OUNCES OF LIQUID AND DRINK ONCE DAILY. metoclopramide HCl 10 mg tablet 10 mg PO Q6H PRN (Reason: Nausea) carboxymethylcellulose sodium [Refresh Plus] 0.5 % Dropperette 1 drp OPHTHALMIC (EYE) QID PRN (Reason: Dry Eyes) metoprolol tartrate 25 mg tablet 12.5 mg PO BID Changed furosemide 20 mg Tablet 20 mg PO QAM PRN (Reason: swelling) Qty: 2 0RF Discontinued glimepiride 2 mg tablet 2 mg PO DAILY famotidine 20 mg tablet 20 mg PO BID Discharge Orders: Discharge Order (Routine); Ordered 07/07/24 Ordered By: Tobi Bronson Referrals: Alvina Morton MD [Primary Care Provider, [facility]] - 7-10 days Discharge Diet: As Directed Discharge Activity: Resume usual activity and Increase activity as tolerated Patient Instructions: GI Post Discharge Instructions w/ Anesthesia, Opioid Safety Activity Restrictions/Additional Instructions: Dysphagia level 6 diet soft and bite sized with thin liquid diet. Follow-up with the PCP within next 1 week to discuss results of cytopathology. Repeat BMP and calcium level in 1 week. Continue oral intake with at least 2 L of liquid daily. Discharge Attestations Time Spent in Discharge Care*: greater than 30 min Specific Discharge Activities: educating patient, educating and/or supporting family/caregiver, discussing with pcp/other providers, discussing with case briefer/social workers/dc planners, documenting/other paperwork and evaluating patient/reviewing data Status at Discharge: Cognitive status at discharge: cognitively intact, Behavioral status at discharge: cooperative, Functional status at discharge: uses cane/walker, Overall status at discharge: patient is progressing back to baseline Quality Metrics Clinical Quality Measures [ No reported AMI, CVA or VTE this stay] Coding Level of Care Code 25217 Total time (in minutes) for Discharge: 65 Diagnoses Dysphagia R13.10 Metastatic disease C79.9 Liver lesion K76.9 Retroperitoneal lymphadenopathy R59.0 COPD (chronic obstructive pulmonary disease) J44.9 On supplemental oxygen therapy Z99.81 CKD (chronic kidney disease) N18.9 Hyponatremia E87.1 Azotemia R79.89 Dehydration E86.0 Transaminitis R74.01 Diabetic peripheral neuropathy associated with type 2 diabetes mellitus E11.42 Hypercalcemia E83.52
[2024-07-07 12:04] LABS: Glucose Point of Care 127 mg/dL (70-110)
--- NOTE | 2024-07-07 14:20 | PC.SLP ---
Prior to patient discharge, reviewed parts of the patient's swallowing home exercise program with the patient and family member present. Answered questions, went over handout, demonstrated new items on the exercise program.
--- NOTE | 2024-07-07 14:46 | W.PM.BPON ---
-- Patient is scheduled to have an outpatient PET CT tomorrow. -- Follow up liver biopsy results, will likely need a medical oncologist. -- I strongly recommended that this patient have an EGD, since I did not find any masses or tumors during colonoscopy. -- The patient will need to follow up with general surgery for pathology results and to arrange for outpatient/elective EGD. I discussed with the patient and
== END 2024-07-07 14:41 | disposition home or self-care (01) | DRG 683 ==
LOC: ER 07-03 01:55 → ER IP 07-03 03:25 → ICU 07-03 19:58 → CSU 07-06 00:55
PROVIDERS: Family Medicine; Surgery; Admitting Provider Internal Medicine; Emergency Provider Emergency Medicine; PCP Family Medicine; Visit Provider Student in an Organized Health Care Education/Training Program
PROC: 0DJD8ZZ Inspection of Lower Intestinal Tract, Via Natural or Artificial Opening Endoscopic (ICD-10-PCS; CPT 45378; principal; 2024-07-07 08:00)
DX: N17.9 Acute kidney failure, unspecified (principal); C78.7 Secondary malignant neoplasm of liver and intrahepatic bile duct; J96.10 Chronic respiratory failure, unspecified whether with hypoxia or hypercapnia; E87.1 Hypo-osmolality and hyponatremia; I47.20 Ventricular tachycardia, unspecified; Z79.899 Other long term (current) drug therapy; Z79.84 Long term (current) use of oral hypoglycemic drugs; E78.5 Hyperlipidemia, unspecified; J44.9 Chronic obstructive pulmonary disease, unspecified; G47.33 Obstructive sleep apnea (adult) (pediatric); Z87.891 Personal history of nicotine dependence; E11.9 Type 2 diabetes mellitus without complications; Z88.8 Allergy status to other drugs, medicaments and biological substances; R13.10 Dysphagia, unspecified; Z99.81 Dependence on supplemental oxygen; N18.9 Chronic kidney disease, unspecified; E11.40 Type 2 diabetes mellitus with diabetic neuropathy, unspecified; E86.0 Dehydration; R62.7 Adult failure to thrive; E83.52 Hypercalcemia; Z66 Do not resuscitate; R59.0 Localized enlarged lymph nodes; I12.9 Hypertensive chronic kidney disease with stage 1 through stage 4 chronic kidney disease, or unspecified chronic kidney disease; D63.1 Anemia in chronic kidney disease; K59.00 Constipation, unspecified; C80.1 Malignant (primary) neoplasm, unspecified
CPT/HCPCS: 12345; 36415; 36416; 45380; 47000; 70491; 71260; 74177; 74230; 76942; 80048; 80053; 80061; 80076; 81001; 82306; 82310; 82330; 82378; 82607; 82746; 82962; 83010; 83036; 83540; 83550; 83615; 83690; 83735; 83970; 84100; 84145; 84443; 84484; 85025; 85610; 86140; 87040; 88184; 88185; 88305; 88307; 92523; 92610; 92611; 93005; 93306; 94640; 96372; 96374; 96376; 97161; 99285; G0378; J0282; J0630; J0696; J1644; J1815; J2250; J2371; J2470; J2704; J3010; J7030; J7042; J7120; J9999

== ENCOUNTER 2024-07-08 14:54 | Outpatient (CLI) | payer OTHER, SELFPAY ==
--- NOTE | 2024-07-08 15:14 | PETR_ITS ---
PROCEDURE INFORMATION: Exam: PET/CT Skull Base to Mid-thigh Exam date and time: 07/08/2024 3:54 PM Age: 79 years old Clinical indication: Abnormal findings; Interval development of widespread hepatic metastatic disease and bulky retroperitoneal adenopathy; Suspected hepatic ca-no official dx; Additional info: Liver lesions LABS AND CLINICAL REPORTS: Glucose: 122 mg/dl Treatment strategy for malignancy (PET staging): Initial Staging (PI) TECHNIQUE: Imaging protocol: Following at least four-hour fasting and following the injection of radiopharmaceutical, low dose CT images were obtained. Then, PET images were obtained. Attenuation corrected images were constructed using the CT scan. Fused images of PET and CT were reviewed. The standardized uptake values (SUV) reported below are maximum values within a region of interest, expressed in gm/ml. Exam includes orbital meatal line to mid-thigh. SUV normalization method: BodyWeight Radiopharmaceutical: 12.96 mCi F-18 FDG (Fluorodeoxyglucose), IV. Time of imaging post radiopharmaceutical administration: 49 minutes Injection site: left ac COMPARISON: 1. CT neck w con* [id number] 07/03/2024 12:[address] chest abdpel w/*[id number] 07/02/2024 11:56 PM FINDINGS: Brain: Visualized brain has normal physiologic uptake. Pharynx: No abnormal uptake. Larynx: No abnormal uptake. Lungs, pleura and trachea: No abnormal uptake. Heart: Normal physiologic uptake. Mediastinal space: No abnormal uptake. Liver: Extensive hepatic disease with confluent mass in the right hepatic lobe demonstrating SUV max 12.0. Gallbladder and biliary ducts: No abnormal uptake. Status post cholecystectomy. Pancreas: No abnormal uptake. Spleen: No abnormal uptake. Adrenal glands: No abnormal uptake. Kidneys and ureters: Normal physiologic uptake. Stomach and bowel: No abnormal uptake. Intraperitoneal and retroperitoneal spaces: Small volume perihepatic fluid weight, likely postsurgical. Vasculature: No abnormal uptake. Lymph nodes: Hypermetabolic cervical, mediastinal, and retroperitoneal lymphadenopathy including reference left level 2 lymph node (series 202, image 51) measuring 1.3 cm in short axis with SUV max of 22.2, 9 mm right paratracheal lymph node (image 88) with SUV max 8.3, and extensive centrally necrotic retroperitoneal lymphadenopathy with SUV max of 19.2. Skeleton: Extensive osseous metastatic disease. Extensive hypermetabolic osseous metastases involving the spine, ribs, sternum, bilateral humeri, bilateral femurs, and pelvis. Soft tissues: Ill-defined FDG avid soft tissue involving the left paraspinal muscle at the level of L2 concerning for metastasis. PET/PET skull to thigh INIT [id number] IMPRESSION: 1. Hypermetabolic hepatic masses with confluent mass in the right hepatic lobe. 2. Hypermetabolic cervical, mediastinal, upper abdominal, and retroperitoneal lymphadenopathy. 3. Extensive hypermetabolic osseous metastases involving the axial and appendicular skeleton.
== END 2024-07-08 14:55 | disposition home or self-care (01) ==
PROVIDERS: PCP Family Medicine; Visit Provider Family Medicine
DX: C22.9 Malignant neoplasm of liver, not specified as primary or secondary (principal); R59.0 Localized enlarged lymph nodes; K76.9 Liver disease, unspecified; Z90.49 Acquired absence of other specified parts of digestive tract; C79.51 Secondary malignant neoplasm of bone; R93.89 Abnormal findings on diagnostic imaging of other specified body structures; R16.0 Hepatomegaly, not elsewhere classified
CPT/HCPCS: 78815; A9552

== ENCOUNTER 2024-07-11 11:29 | Emergency (ER) | payer OTHER, SELFPAY ==
[2024-07-11 11:40] VITALS: BP 119/53; PULSE 80; RESP 12; TEMP 36.4; O2SAT 92; BMI 38.0
--- NOTE | 2024-07-11 11:40 | XRR_ITS ---
PROCEDURE INFORMATION: Exam: XR Chest Exam date and time: 07/11/2024 11:45 AM Age: 79 years old Clinical indication: Pain; Angina pectoris; Additional info: Cp TECHNIQUE: Imaging protocol: Radiologic exam of the chest. Views: 1 view. COMPARISON: CT chest abdpel w/*[id number] 07/02/2024 11:56 PM FINDINGS: Lungs: There were some strandy and patchy opacity seen in the left lung base that may represent atelectasis although left basilar infiltrate can not be excluded. There is mild prominence and indistinctness the pulmonary vasculature, findings be seen with pulmonary edema. Pleural spaces: Unremarkable. No pleural effusion. No pneumothorax. Heart/Mediastinum: Unremarkable. No cardiomegaly. Bones/joints: Unremarkable. XR/XR chest 1V portable [id number] IMPRESSION: 1. Mild prominence and indistinctness of the pulmonary vasculature, a finding can be seen with pulmonary edema. 2. Patchy and strandy opacities in the left lung base represent atelectasis although basilar pneumonia can not be excluded.
--- NOTE | 2024-07-11 11:43 | ECG_ITS ---
[facility] [employer] On Call Test Date: 2024-07-11 Pat Name: Arabella Lutz Department: Room: Gender: Male Special Procedures Nurse: : 1945 Requested By: Kb Lopez Order Number: [id number] Jameson MD: Loan Hooks M.D. Measurements Intervals [place] Rate: 80 P: 79 [place]: 217 QRS: -53 QRSD: 110 T: 48 QT: 378 QTc: 436 Interpretive Statements SINUS RHYTHM WITH FIRST DEGREE AV BLOCK LEFT AXIS DEVIATION [QRS AXIS < -30] LOW QRS VOLTAGE IN EXTREMITY LEADS [QRS DEFLECTION < 0.5 mV IN LIMB LEADS] POSSIBLE ANTERIOR MYOCARDIAL INFARCTION , OF INDETERMINATE AGE [30 ms Q WAVE IN V3/V4, OR R < 0.2 mV IN V4] Compared to ECG 07/04/2024 09:32:39 Left-axis deviation now present Left anterior fascicular block no longer present Myocardial infarct finding still present Electronically Signed On 07-12-2024 06:27:59 CDT by Loan Hooks M.D. [email or web address]
[2024-07-11 11:57] VITALS: BP 119/53; PULSE 78; RESP 16; O2SAT 90
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
[2024-07-11 12:02] LABS: Basophils % 0.2 %; Eosinophils # 0.1 10^3/uL (0.0-0.8); Eosinophils % 0.6 %; Hematocrit 31.1 % (37-53); Lymphocytes # 0.9 10^3/uL (0.8-4.8); Lymphocytes % 9.5 %; Mean Corpuscular HGB Conc 31.5 g/dL (30-55); Mean Corpuscular Hemoglobin 29.3 pg (27-33); Mean Corpuscular Volume 92.8 fl (82-101); Mean Platelet Volume 9.4 fL (7.4-10.4); Monocytes # 0.9 10^3/uL (0.2-0.9); Neutrophils % 78.5 %; Nucleated Red Blood Cells % 0 %; Platelet Count 220 10^3/cmm (157-399); Red Blood Count 3.35 10^6/uL (3.85-5.65); Red Cell Distribution Width 14.6 % (12.1-15.1); White Blood Count 9.44 10^3/uL (3.29-11.43)
[2024-07-11 12:17] LABS: INR 1.07 (0.8-1.2)
[2024-07-11 12:28] LABS: Alanine Aminotransferase 16 U/L (0-41); Alkaline Phosphatase 285 U/L (40-130); Aspartate Amino Transferase 54 U/L (0-40); Blood Urea Nitrogen 36 mg/dL (8-23); Calcium 11.4 mg/dL (8.5-10.5); Carbon Dioxide 26 mmol/L (22-29); Chloride 96 mmol/L (98-107); Creatinine Clr Calc Pharmacy 56.3072; Globulin 2.6 g/dL (1.3-4.6); Glucose 99 mg/dL (65-115); Lipase 133 U/L (13-60); Osmolality Calculated 286 mOsm/kg (285-295); Sodium 134 mmol/L (136-145); Total Bilirubin 0.6 mg/dL (0.15-1.2); Total Protein 5.6 g/dL (6.6-8.7)
[2024-07-11 12:33] VITALS: BP 119/53; PULSE 90; RESP 19; O2SAT 93
[2024-07-11 12:33] LABS: Anion Gap 16.6 (5-19); Potassium 4.6 mmol/L (3.5-5.1); Troponin(5th) Baseline 29 ng/L (0-15)
[2024-07-11 13:10] VITALS: RESP 14
[2024-07-11] MEDS: morphine 4 mg/mL SDV 1 mL 2 MG IVP (13:10)
[2024-07-11] MEDS: iohexol 350 mg/mL 500 mL Btl (per mL) IV (13:26)
[2024-07-11 13:29] VITALS: BP 122/80; RESP 16; O2SAT 95
--- NOTE | 2024-07-11 13:30 | PC.NURSE ---
Assumed care of patient at 1300. Pt sitting in chair at bedside. States that his back will not allow him to sit in the bed with his legs out straight and he sits in his recliner at home.
--- NOTE | 2024-07-11 13:35 | CT_ITS ---
WS: [id number] CTA CHEST FOLLOWED BY ABDOMEN AND PELVIS TECHNIQUE: Contrast enhanced CTA of the chest, abdomen, and pelvis with coronal and sagittal reformatted images and additional MIP Images. CLINICAL INFORMATION: chest pain/elevated lipase COMPARISON: 07/02/2024 DLP: 1563.[address] scans at [facility] use at least one of these dose optimization techniques: automated exposure control; mA and/or kV adjustment per patient size (includes targeted exams where dose is matched to clinical indication); or iterative reconstruction. FINDINGS: Proximal main pulmonary arteries are normal. Normal segmental and subsegmental pulmonary arteries. A few normal size mediastinal lymph nodes. Aortic calcification. Coronary calcification. No axillary lymphadenopathy. Lungs are well aerated. Slight bibasilar atelectasis. Ankylosis thoracic spine. Osseous metastasis throughout the axial and appendicular skeleton better visualized on the PET/CT. Diffuse hepatic metastasis worse in the RIGHT hepatic lobe similar to 07/03/2024. Small amount of perihepatic ascites is new. Bulky lymphadenopathy in the tito hepatis. Bulky upper abdominal periaortic aortocaval and retroperitoneal lymphadenopathy. This is similar to the prior recent studies. Stable infrarenal abdominal aortic aneurysm. Mild prostate enlargement. Main portal vein is patent. Splenic vein is patent. Cholecystectomy. CT/CT angio chest w abd pel w con IMPRESSION: 1. No evidence of pulmonary embolus. 2. No new pulmonary infiltrates. 3. Similar-appearing diffuse hepatic metastasis and bulky abdominal and retrop eritoneal lymphadenopathy. 4. Trace hepatic ascites. 5. Stable 4.6 x 4.1 cm infrarenal abdominal aortic aneurysm. 6. Diffuse osseous metastasis better appreciated on the recent PET/CT.
[2024-07-11 13:48] LABS: Troponin 5 2HR 31.31 ng/L (0-15); Troponin 5 2HR Delta 2.31 ABS# (0-10)
--- NOTE | 2024-07-11 13:56 | ECG_ITS ---
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 Measurements Intervals [place] Rate: 89 P: 104 [place]: 205 QRS: 227 QRSD: 101 T: 22 QT: 366 QTc: 448 Interpretive Statements SINUS RHYTHM ARM LEADS REVERSED [INVERTED P AND QRS IN I] Poor R wave progression Compared to ECG 07/11/2024 11:43:49 First degree AV block no longer present Left-axis deviation no longer present Myocardial infarct finding no longer present Electronically Signed On 07-12-2024 06:40:49 CDT by Loan Hooks M.D. [email or web address]
--- NOTE | 2024-07-11 15:01 | DCPLANNER ---
Spoke with oncology and they had a cancellation so they will schedule patient for tomorrow 8am Martina is working on getting [facility] Auth Changed.
[2024-07-11 15:06] VITALS: BP 103/59; PULSE 88; O2SAT 95
== END 2024-07-11 15:24 | disposition home or self-care (01) ==
PROVIDERS: Emergency Medicine; Emergency Provider Family Medicine; PCP Family Medicine
DX: R07.89 Other chest pain (principal); C80.0 Disseminated malignant neoplasm, unspecified; Z87.891 Personal history of nicotine dependence; J44.9 Chronic obstructive pulmonary disease, unspecified; E78.5 Hyperlipidemia, unspecified; I13.0 Hypertensive heart and chronic kidney disease with heart failure and stage 1 through stage 4 chronic kidney disease, or unspecified chronic kidney disease; N18.9 Chronic kidney disease, unspecified; I50.9 Heart failure, unspecified; M54.89 Other dorsalgia
CPT/HCPCS: 36415; 71045; 71275; 74177; 80053; 83690; 84484; 85025; 85610; 93005; 96374; 99285; J2270

== ENCOUNTER 2024-07-12 08:32 | Oncology outpatient (recurring) (ONCR) | payer OTHER, SELFPAY | END 2024-07-23 23:59 | disposition home or self-care (01) | PROVIDERS: PCP Family Medicine; Visit Provider Internal Medicine Medical Oncology | DX: C78.7 Secondary malignant neoplasm of liver and intrahepatic bile duct (principal); C79.51 Secondary malignant neoplasm of bone; C77.2 Secondary and unspecified malignant neoplasm of intra-abdominal lymph nodes; Z87.891 Personal history of nicotine dependence | CPT/HCPCS: 99205 ==